=== PATIENT | male | born 1945 | race African-American/Black ===

== ENCOUNTER 2016-11-02 12:15 | Observation (INO) ==
--- NOTE | 2016-11-02 12:32 | Emergency Department Note ---
Disposition Clinical Impression: Chest pain Disposition: Admitted As Inpatient Condition: Fair General Adult HPI - General Chief complaint: ED Chest Pain Stated complaint: Chest Pain Time Seen by Provider: 11/02/16 12:29 Source: patient Limitations: no limitations - History of Present Illness Pain Scale: 8 - Related Data Home Medications Medication Instructions Recorded Confirmed Cyanocobalamin (Vitamin B-12) 1,000 mcg PO DAILY 11/02/16 11/02/16 [Vitamin B-12] Insulin Glargine,Hum.rec.anlog 30 unit SQ BID 11/02/16 11/02/16 [Lantus Solostar] Isosorbide MONOnitrate (24 HR) 30 mg PO DAILY 11/02/16 11/02/16 [Imdur] Metoprolol Tartrate [Lopressor] 50 mg PO BID 11/02/16 11/02/16 Nitroglycerin [Nitrostat] 0.4 mg SL AD PRN 11/02/16 11/02/16 Paroxetine HCl [Paxil] 5 mg PO DAILY 11/02/16 11/02/16 Prasugrel [Effient] 10 mg PO DAILY 11/02/16 11/02/16 Ranolazine [Ranexa] 500 mg PO BID 11/02/16 11/02/16 Simvastatin [Zocor] 40 mg PO HS 11/02/16 11/02/16 Allergies Allergy/AdvReac Type Severity Reaction Status Date / Time glimepiride AdvReac Diarrhea Verified 11/02/16 16:19 metformin AdvReac Diarrhea Verified 11/02/16 16:19 Past Medical History - Past Medical History Medical history: Reports: diabetes, hyperlipidemia, hypertension, myocardial infarction - Social History Smoking Status: Current every day smoker Alcohol use: Reports: none Drug use: Reports: none Physical Exam - General Limitations: no limitations General appearance: alert, in no apparent distress Course Vital Signs Temperature 98.0 F 11/02/16 12:23 Pulse Rate 49 11/02/16 12:23 Respiratory Rate 16 11/02/16 12:23 Blood Pressure 160/84 11/02/16 12:23 O2 Sat by Pulse Oximetry 98 11/02/16 12:23 Temperature 97.6 F 11/02/16 15:24 Pulse Rate 46 11/02/16 15:24 Respiratory Rate 16 11/02/16 15:24 Blood Pressure 148/85 11/02/16 15:24 O2 Sat by Pulse Oximetry 98 11/02/16 15:24 Oxygen Delivery Oxygen Delivery Room Air Medical Decision Making - Lab Data Result diagrams: 11/02/16 13:35 11/02/16 13:35 Lab Results 11/02/16 11/02/16 11/02/16 Range/Units 13:35 13:35 13:35 WBC 7.5 (4.3-11.1) K/mcL RBC 5.55 H (4.19-5.50) M/mcL Hgb 15.9 (12.9-16.9) g/dL Hct 45.0 (37.5-50.1) % MCV 81.1 L (83.0-100.0) fL MCH 28.6 (28.0-33.3) pg MCHC 35.3 (31.6-35.5) g/dL RDW 13.8 (11.5-14.5) % Plt Count 279 (140-400) K/mcL MPV 10.5 (9.4-12.4) fL Immature Gran % 0.5 (0-4) % Seg Neutrophils % 40.2 % Lymphocytes % 36.1 % Monocytes % 8.2 % Eosinophils % 14.2 % Basophils % 0.8 % Neutrophils # 3.0 (1.6-8.9) K/mcL Lymphocytes # 2.7 (0.6-4.6) K/mcL Monocytes # 0.6 (0.0-1.3) K/mcL Eosinophils # 1.1 H (0.0-0.6) K/mcL Basophils # 0.1 (0.0-0.2) K/mcL Sodium 140 (136-145) mEq/L Potassium 4.0 (3.5-4.5) mEq/L Chloride 107 (98-109) mEq/L Carbon Dioxide 24 (19-29) mEq/L BUN 10 (8-26) mg/dL Creatinine 1.18 (0.72-1.25) mg/dL Est GFR ( Amer) > 60 (> 60) Est GFR (Non-Af Amer) > 60 (> 60) BUN/Creatinine Ratio 8 (6-26) Glucose 135 H (70-99) mg/dL Calculated Osmolality 291 (280-300) Calcium 8.6 (8.6-10.8) mg/dL Troponin I 0.03 (0-0.03) ng/mL Attestation Statement - Attestation Attestation: I examined this patient and my medical decision-making was reviewed with the MENTAL HEALTH CONSULTANT/PA/Advanced Practice Nurse/Resident Physician. I agree with the documented findings, disposition and treatment plan as described except to the extent set forth below. Ujdm-[id number] time provided Patient presents complaining of chest discomfort and fatigue. He has a known history of coronary artery disease. Patient seen and evaluated in conjunction with the resident physician. EKG reviewed by me showing ST segment depression in the inferior lateral leads which is unchanged compared to previous study
--- NOTE | 2016-11-02 12:36 | Emergency Department Note ---
Disposition Clinical Impression: Chest pain Qualifiers: Chest pain type: unspecified Qualified Code(s): R07.9 - Chest pain, unspecified Disposition: Admitted As Inpatient Condition: Fair Forms: ED Satisfaction Letter Chest Pain HPI - General Chief Complaint: ED Chest Pain Stated Complaint: Chest Pain Time Seen by Provider: 11/02/16 12:29 Source: patient Limitations: no limitations Vital Signs Reviewed: Yes Nursing Notes Reviewed: Yes - History of Present Illness HPI Narrative: Mr. Cowan, a 70yo male, presents from home by POV with chief complaint chest pain. Onset yesterday and intermittent for approximately 3 hours before it spontaneously resolved. Recurred again this morning at 07:30 and has been intermittent all day. Patient locates his chest pain as left lower sternal border. Though does not currently radiate, it did radiate to his left shoulder yesterday. Pain is described as sharp and stabbing. It is present at rest and unchanged with light exertion. Patient admits to generalized weakness and fatigue. Denies acute dyspnea, diaphoresis, nausea, numbness or tingling, vomiting, abdominal pain, fever, chills, cough. Patient has not had a stress test since his last catheterization in 2014. PMH: Hypertension, hyperlipidemia, CAD with stent 7. Habits: Current every day smoker. [employer]: Dr. Espinoza Severity scale (1-10): 8 - Related Data Allergies Allergy/AdvReac Type Severity Reaction Status Date / Time No Known Allergies Allergy Verified 11/02/16 12:26 All systems ED: reviewed and negative except as stated. Constitutional: Denies: fever, chills, weakness Cardiovascular: Reports: chest pain. Denies: palpitations, dyspnea on exertion , edema, syncope Respiratory: Reports: dyspnea. Denies: cough, wheezes Gastrointestinal: Denies: abdominal pain, nausea, vomiting, diarrhea, constipation Genitourinary: Denies: urgency, dysuria, frequency Musculoskeletal: Denies: back pain, neck pain, joint swelling Integumentary: Denies: rash, abrasion, lesions Neurological: Denies: headache, weakness, numbness Chest Pain PMH - Past Medical History Medical history: Reports: diabetes, hyperlipidemia, hypertension, myocardial infarction - Social History Smoking Status: Current every day smoker Alcohol use: Reports: none Drug use: Reports: none Physical Exam General: Patient is alert, oriented, and in no acute distress. HEENT: No facial asymmetry. Head is normocephalic and atraumatic. Trachea midline. Cardiovascular: Heart regular rate and rhythm without clicks, rubs, gallops, or murmurs. No JVD. PMI nondisplaced. No pedal edema. Bilateral radial and dorsalis pedis pulses 2+. No carotid bruit. Respiratory: Symmetric chest rise with good respiratory effort. Bilateral breath sounds are clear without wheezing, crackles, or rhonchi. Abdomen: Bowel sounds present normoactive x-4 quadrants. Abdomen is soft, nondistended, and nontender. No organomegaly noted. Psych: Patient's affect is appropriate for situation. - General Limitations: no limitations General appearance: alert, in no apparent distress Course Course Narrative: HTN, HLD, previous WI with 7 stents, , tobacco smoker. His story is moderately suspicious that he states it feels the same as all the previous times he has required stenting. The patient's main concern right now is seen [employer]. After discussion in elucidating my concerns, he agrees for admission to observation for continued ACS rule out. Patient's EKG is unchanged from previous. Troponin is within normal range. Blood lites are unremarkable. Patient is not anemic. Leukocytosis. No leukocytosis. Chest x-ray is unremarkable. Even so, patient's heart score is 6. Have discussed admission with the patient and his at bedside. Pressure decision-making regarding his risks and concerning medical history, they agree for observation for ACS rule out. Spoke with the hospitalist, Dr. Olguin, who agrees to accept the patient. Vital Signs Temperature 98.0 F 11/02/16 12:23 Pulse Rate 49 11/02/16 12:23 Respiratory Rate 16 11/02/16 12:23 Blood Pressure 160/84 11/02/16 12:23 O2 Sat by Pulse Oximetry 98 11/02/16 12:23 Temperature 98.0 F 11/02/16 12:23 Pulse Rate 45 11/02/16 14:15 Respiratory Rate 14 11/02/16 14:15 Blood Pressure 163/101 11/02/16 14:15 O2 Sat by Pulse Oximetry 97 11/02/16 14:15 Oxygen Delivery Oxygen Delivery Room Air Chest Pain - Lab Data Result diagrams: 11/02/16 13:35 11/02/16 13:35 Lab Results 11/02/16 11/02/16 11/02/16 Range/Units 13:35 13:35 13:35 WBC 7.5 (4.3-11.1) K/mcL RBC 5.55 H (4.19-5.50) M/mcL Hgb 15.9 (12.9-16.9) g/dL Hct 45.0 (37.5-50.1) % MCV 81.1 L (83.0-100.0) fL MCH 28.6 (28.0-33.3) pg MCHC 35.3 (31.6-35.5) g/dL RDW 13.8 (11.5-14.5) % Plt Count 279 (140-400) K/mcL MPV 10.5 (9.4-12.4) fL Immature Gran % 0.5 (0-4) % Seg Neutrophils % 40.2 % Lymphocytes % 36.1 % Monocytes % 8.2 % Eosinophils % 14.2 % Basophils % 0.8 % Neutrophils # 3.0 (1.6-8.9) K/mcL Lymphocytes # 2.7 (0.6-4.6) K/mcL Monocytes # 0.6 (0.0-1.3) K/mcL Eosinophils # 1.1 H (0.0-0.6) K/mcL Basophils # 0.1 (0.0-0.2) K/mcL Sodium 140 (136-145) mEq/L Potassium 4.0 (3.5-4.5) mEq/L Chloride 107 (98-109) mEq/L Carbon Dioxide 24 (19-29) mEq/L BUN 10 (8-26) mg/dL Creatinine 1.18 (0.72-1.25) mg/dL Est GFR ( Amer) > 60 (> 60) Est GFR (Non-Af Amer) > 60 (> 60) BUN/Creatinine Ratio 8 (6-26) Glucose 135 H (70-99) mg/dL Calculated Osmolality 291 (280-300) Calcium 8.6 (8.6-10.8) mg/dL Troponin I 0.03 (0-0.03) ng/mL Heart Score - Score History: Moderately Suspicious EKG: Non Specific repolarisation Disturbance Age: Greater than 65 Risk Factors: Equal/Greater than 3 risk factor or history of atherosclerotic disease Troponin: Less than normal limit HEART Score Total: 6
[2016-11-02 13:54] LABS: Basophils # 0.1 K/mcL (0.0-0.2); Basophils % 0.8 %; Eosinophils # 1.1 K/mcL (0.0-0.6); Eosinophils % 14.2 %; Hemoglobin 15.9 g/dL (12.9-16.9); Immature Granulocytes % 0.5 % (0-4); Lymphocytes # 2.7 K/mcL (0.6-4.6); Lymphocytes % 36.1 %; Mean Corpuscular HGB Conc 35.3 g/dL (31.6-35.5); Mean Corpuscular Hemoglobin 28.6 pg (28.0-33.3); Mean Corpuscular Volume 81.1 fL (83.0-100.0); Mean Platelet Volume 10.5 fL (9.4-12.4); Monocytes # 0.6 K/mcL (0.0-1.3); Monocytes % 8.2 %; Platelet Count 279 K/mcL (140-400); Red Blood Count 5.55 M/mcL (4.19-5.50); Red Cell Distribution Width 13.8 % (11.5-14.5); Segmented Neutrophils % 40.2 %
[2016-11-02 14:06] LABS: BUN/Creatinine Ratio 8 (6-26); Blood Urea Nitrogen 10 mg/dL (8-26); Calcium 8.6 mg/dL (8.6-10.8); Carbon Dioxide 24 mEq/L (19-29); Chloride 107 mEq/L (98-109); Glucose 135 mg/dL (70-99); Osmolality,Calculated 291 (280-300); Sodium 140 mEq/L (136-145); eGFR For African Americans > 60 (> 60); eGFR For Non-African Americans > 60 (> 60)
[2016-11-02] MEDS ORDERED: Aspirin 325 MG TABLET PO ONE (14:27)
[2016-11-02] MEDS ORDERED: Naloxone 0.4 MG/ML INJ IVP PRN ×2 (15:02→15:03)
[2016-11-02] MEDS ORDERED: *HR* Morphine 2 MG/ML SYRINGE IVP PRN (15:03)
--- NOTE | 2016-11-02 15:13 | Internal Med History&Physical ---
Date of Encounter: 11/02/16 Time of Encounter: 15:09 Assessment and Plan (1) Chest pain Status: Acute Chest pain: Admitted as observation. - diabetic diet. -ASA/BB/Statin - Echocardiogram -Pain control with morphine -We will resume home medication -If echocardiogram is normal then please consider stress test -If echocardiogram is abnormal and his consider cardiology evaluation Qualifiers: Chest pain type: unspecified Qualified Code(s): R07.9 - Chest pain, unspecified (2) Diabetes mellitus Status: Chronic Will resume home medications. Will continue home insulin dose. ACHS Sliding scale. Qualifiers: Diabetes mellitus type: type 2 Diabetes mellitus complication status: with unspecified complications Diabetes mellitus manager long term care insulin use: without manager long term care use Qualified Code(s): E11.8 - Type 2 diabetes mellitus with unspecified complications (3) Hypertension Status: Chronic We will resume home medication. At this point patient's blood pressure is within stable condition. Qualifiers: Hypertension type: essential hypertension Qualified Code(s): I10 - Essential (primary) hypertension (4) Current every day smoker Status: Chronic Discussed at length with the patient regarding smoking cessation. Patient is not willing to quit. (5) DVT prophylaxis Status: Acute Heparin Medical decision making: This patient has a gzhm-ja-ekzioasw risk of worsening cardiac issues in spite of being on appropriate medication Internal Medicine - H&P: HPI Chief complaint: Chest pain Admitted From: Emergency Dept Plans for Post Hospital Care: Home History of present illness: PCP: Dr Carter Cardiology : Dr Olga Deluna PMH : diabetes, hyperlipidemia, hypertension, myocardial infarction,CAD, S /P Stetsx7 HPI: Patient has ongoing chest discomfort for more than 3 days. Since this morning 7:30 patient has worsening chest pain. The chest pain is precordial in nature, nonradiating, localized, worsening with the inspiration and relieved by rest. Patient complains that the nature of the pain is intermittent, sharp and stabbing. Patient claims that in last 3-4 days he is progressively getting fatigue. Patient denies nausea, vomiting, abdominal pain, diarrhea, dizziness and palpitations. His persistent chest pain brought him to the emergency room for further evaluation. Workup in the emergency room: Patient was evaluated in the emergency room. Basic labs were drawn. EKG was done which was unchanged. X-ray chest was done which was within normal limit. Reason for admission: Chest pain to rule out ACS Family history: Noncontributory Past Med Surg Social Fam HX - Past Medical History Medical history: diabetes, hyperlipidemia, hypertension, myocardial infarction - Social History Smoking Status: Current every day smoker Alcohol use: none Drug use: none Internal Medicine - H&P: Meds Cyanocobalamin (Vitamin B-12) [Vitamin B-12] 1,000 mcg PO DAILY 11/02/16 [ History] Insulin Glargine,Hum.rec.anlog [Lantus Solostar] 30 unit SQ BID 11/02/16 [ History] Nitroglycerin [Nitrostat] 0.4 mg SL AD PRN 11/02/16 [History] Paroxetine HCl [Paxil] 5 mg PO DAILY 11/02/16 [History] Prasugrel [Effient] 10 mg PO DAILY 11/02/16 [History] Simvastatin [Zocor] 40 mg PO HS 11/02/16 [History] Aspirin 81 mg PO DAILY #30 tab.chew 11/04/16 [Rx] Isosorbide MONOnitrate (24 HR) [Imdur] 60 mg PO DAILY #30 tab.er.24h 11/04/16 [ Rx] Lisinopril [Zestril] 10 mg PO DAILY #30 tablet 11/04/16 [Rx] Metoprolol [Lopressor] 25 mg PO BID #60 tablet 11/04/16 [Rx] Ranolazine [Ranexa] 1,000 mg PO BID #60 tab.er.12h 11/04/16 [Rx] Allergies glimepiride Adverse Reaction (Verified 11/02/16 16:19) Diarrhea metformin Adverse Reaction (Verified 11/02/16 16:19) Diarrhea All Systems PM: A 10-system review of systems was performed and is negative for pertinent findings except as documented above in the HPI. - Constitutional Constitutional: no chills, no fever(s), no night sweats - EENT Eyes: no change in vision, no discharge, no pain, no photophobia Ears: no ear discharge, no ear pain, no tinnitus Nose, mouth and throat: no dysphagia, no nasal discharge, no neck pain, no sore throat - Cardiovascular Cardiovascular ROS IM: chest pain, no diaphoresis, no dyspnea, no lightheadedness, no palpitations, no syncope - Respiratory Respiratory: no cough, no dyspnea, no wheezing, no excessive phlegm production - Gastrointestinal Gastrointestinal: no abdominal pain, no diarrhea, no hematemesis, no hematochezia, no melena, no nausea, no vomiting - Musculoskeletal Musculoskeletal ROS IM: no numbness, no tingling - Integumentary Integumentary IM: no rash, no unusual bruising - Neurological Neurological ROS: no confusion, no convulsions, no focal weakness, no numbness, no tingling, no tremor(s) - Hematologic/Lymphatic Hematologic/Lymphatic: no easy bruising - Constitutional Vitals: Temp Pulse Resp BP Pulse Ox 98.0 F 45 14 172/109 97 11/02/16 12:23 11/02/16 14:15 11/02/16 15:03 11/02/16 15:03 11/02/16 14:15 General appearance: Present: A&O X 3, morbidly obese, pleasant, no acute distress, answers questions appropriately - Head Head exam: Present: atraumatic, normocephalic - Eye Eye exam: Present: PERRL, conjuntiva pink, sclera anicteric Pupils: Present: PERRL - Neck Neck exam general surgery: Present: supple, trachea midline. Absent: lymphadenopathy - Respiratory Respiratory exam: Present: CTAB. Absent: accessory muscle use, rales, rhonchi, wheezes - Cardiovascular Cardiovascular exam: Present: RRR, +S1, +S2. Absent: diastolic murmur, gallop, rubs, systolic murmur - GI/Abdominal GI/Abdominal exam: Present: normal bowel sounds, soft, no peritoneal signs. Absent: distended, tenderness - Extremities Exam Extremities exam: Present: warm, radial pulses palpable and symetrical. Absent : calf tenderness, cyanotic, pedal edema - Neurological Exam Neurological exam: Present: CN II-XII intact, oriented X3, no focal deficits. Absent: pronater drift, facial droop, speech deficit - Skin Skin exam: Present: dry, intact Internal Med - H&P Results - Labs CBC & Chem 7: 11/04/16 05:17 11/04/16 05:17 Labs: Discussed with the emergency room physician
[2016-11-02] MEDS ORDERED: Nitroglycerin 0.4 MG TAB.SUBL SL PRN (21:31)
[2016-11-02] MEDS ORDERED: Dextrose Gel 15 GM PO PRN ×2 (21:33)
[2016-11-02] MEDS ORDERED: *HR* Dextrose 50 % in Water (Syg) 50 ML SYRINGE IVP PRN (21:33)
[2016-11-02] MEDS ORDERED: D5% in Water 1,000 ML IV PRN (21:33)
[2016-11-02] MEDS: Ranolazine 500 MG TAB.ER.12H PO SCH (22:04)
[2016-11-02 22:26] LABS: Hemoglobin A1C 7.2 %
[2016-11-02] MEDS: Insulin DETEMIR 100 UNIT/ML X5UNITS SQ SCH (22:42)
[2016-11-03 04:03] LABS: Alanine Aminotransferase 11 Units/L (0-55); Albumin/Globulin Ratio 0.9 (1.1-2.2); Alkaline Phosphatase 73 Units/L (38-126); Aspartate Amino Transferase 13 Units/L (5-34); BUN/Creatinine Ratio 8 (6-26); Bilirubin,Total 0.6 mg/dL (0.2-1.2); Blood Urea Nitrogen 10 mg/dL (8-26); Calcium 8.9 mg/dL (8.6-10.8); Carbon Dioxide 21 mEq/L (19-29); Chloride 108 mEq/L (98-109); Chol/HDL Ratio 4.4 (0-4.9); Cholesterol 142 mg/dL (< 200); Globulin 3.2 g/dL (2.4-3.5); Glucose 177 mg/dL (70-99); HDL Cholesterol 32 mg/dL (40-59); LDL Cholesterol,Calculated 67 mg/dL (0-99); Magnesium 1.8 mg/dL (1.6-2.6); Osmolality,Calculated 287 (280-300); Phosphorous 3.7 mg/dL (2.3-4.7); Potassium 3.8 mEq/L (3.5-4.5); Sodium 137 mEq/L (136-145); Total Protein 6.2 g/dL (6.0-8.3); Triglycerides 214 mg/dL (< 150); eGFR For African Americans > 60 (> 60); eGFR For Non-African Americans 58 (> 60)
[2016-11-03 04:36] LABS: Basophils # 0.1 K/mcL (0.0-0.2); Basophils % 0.8 %; Eosinophils # 1.1 K/mcL (0.0-0.6); Hematocrit 44.3 % (37.5-50.1); Hemoglobin 15.7 g/dL (12.9-16.9); Immature Granulocytes % 0.4 % (0-4); Lymphocytes # 3.2 K/mcL (0.6-4.6); Lymphocytes % 42.2 %; Mean Corpuscular HGB Conc 35.4 g/dL (31.6-35.5); Mean Corpuscular Hemoglobin 28.7 pg (28.0-33.3); Mean Platelet Volume 10.7 fL (9.4-12.4); Monocytes # 0.7 K/mcL (0.0-1.3); Monocytes % 9.4 %; Neutrophils # 2.5 K/mcL (1.6-8.9); Platelet Count 259 K/mcL (140-400); Red Blood Count 5.47 M/mcL (4.19-5.50); Red Cell Distribution Width 13.7 % (11.5-14.5); Segmented Neutrophils % 33.2 %
[2016-11-03] MEDS: Insulin LISPRO 300 UNITS/3 ML VIAL SQ SCH ×3 (08:13→17:04)
[2016-11-03] MEDS ORDERED: PAROXETINE HCL 5 MG PO SCH (09:00)
[2016-11-03] MEDS ORDERED: Cyanocobalamin (B-12) 1,000 MCG TABLET PO SCH (09:00)
[2016-11-03] MEDS ORDERED: Isosorbide MONOnitrate (24 HR) 30 MG TAB.ER.24H PO SCH ×2 (09:00→16:52)
[2016-11-03] MEDS ORDERED: Regadenoson 0.4 MG/5 ML SYRINGE IVP ONE (09:13)
--- NOTE | 2016-11-03 10:38 | ECHO - Doppler Report ---
Echocardiogram Name: Eliu Cowan Date of Study: 11/03/2016 Date: 1945 Ht: 73.0 in Medical Record#: [id number] Age: 70 Wt: 218.0 lb Gender: Male BSA: 2.23 Order #: [id number] Location: [facility] Room #: 3B Reading Physician: Jenniffer Espinoza DO Cable Machine Operator: Jackeline Templeton Ordering Physician: Tunde Olguin MD Primary Physician: Danny Parks DO Indications: Chest pain Impressions: Sinus bradycardia, HR 50's. LVEF 45-50%. Mild global to low normal LV systolic dysfunction. There is evidence of moderate diastolic dysfunction of the left ventricle. Moderate concentric hypertrophy of the left ventricle. RV is not well visualized. Mild mitral regurgitation. No pulmonary hypertension. Left Ventricular Wall Motion: Rest Echo Findings All wall segments showed normal motion. Findings: Study Quality * Technically adequate exam. ECG Findings * Sinus bradycardia. Left Ventricle * Basal sigmoid septum. * Moderate concentric left ventricular hypertrophy. * Moderate left ventricular diastolic dysfunction. * LVEF 45-50%. Left Atrium * Mildly dilated left atrium. Mitral Valve * Normal mitral valve structure. * No mitral stenosis. * Mild mitral regurgitation. Aortic Valve * No aortic regurgitation. * Trileaflet aortic valve. * Mildly calcified aortic valve leaflets. * No aortic stenosis. Tricuspid Valve * Tricuspid valve not well visualized. * Trace tricuspid regurgitation. * Estimated RA pressure is 3 mmHg. * Estimated RVSP is 7 mmHg. * No pulmonary hypertension. Pulmonic Valve * Pulmonic valve is not well visualized. * No pulmonic stenosis. * Trace pulmonic regurgitation. Pulmonary Artery * Pulmonary artery not well visualized. Right Atrium * Normal right atrial size. Right Ventricle * RV is not well visualized. Interatrial Septum * No evidence of PFO by color Doppler. IVC * The IVC is dilated. Pericardium * There is no pericardial effusion present. Aorta * Not well visualized. History Hypertension Diabetes Hypercholesteremia Family History of CAD History of CAD/PTCA Myocardial Infarction 09/20/15 a Previous Echo was performed. Measurements: BP: 169/ 85 2D Normal Values IVSd: 2.20 cm 0.6 - 1.0 cm LVIDd: 4.80 cm 3.7 - 5.6 cm LVPWd: 1.60 cm 0.6 - 1.1 cm LVIDs: 3.80 cm 1.5 - 3.6 cm AO: 3.20 cm < 4.0 cm LA: 4.10 cm 2.0 - 4.0cm %FS: 20.80 cm >25 % LA volume: 69 Mitral Valve Peak E:.74 m/sec Peak A:.58 m/sec E/A Ratio:1.3 Peak E' Lat Shukri:5.85 cm/s Peak E' Med Shukri:3.02 cm/s E/E' Lat Ratio:12.6 E/E' Med Ratio:24.3 Tricuspid Valve TV Regurg Peak Grad: 4.00mmHg TV Regurg Peak Shukri: .95m/sec Updated by Jenniffer Espinoza on 11/03/2016 10:30:49 AM electronically signed on 11/03/2016 10:32:19 AM with status of Final Wall Motion Flores: 1=Normal, 2=Hypokinesis, 3=Akinesis, 4=Dyskinesis, 5=Aneurysmal, 6=Hyperkinetic, X=Not Visualized (Blank)=Missing
[2016-11-03] MEDS: Ranolazine 500 MG TAB.ER.12H PO SCH ×2 (13:01→20:07)
[2016-11-03] MEDS: Insulin DETEMIR 100 UNIT/ML X5UNITS SQ SCH ×2 (13:01→20:10)
--- NOTE | 2016-11-03 16:18 | Nuclear Medicine Stress Report ---
Regadenoson Nuclear Stress Name: Eliu Cowan Date of Study: 11/03/2016 Date: 1945 Ht: 73.0 in Medical Record#: [id number] Age: 70 Wt: 237.0 lb Gender: Male Order #: [id number] Location: [facility] Room: [facility] Supervising Provider: Facundo Scott CNP Reading Physician: Jenniffer Espinoza DO Ordering Physician: Deidra Rivera CNP Primary Care Physician: Danny Parks DO Stress Technologist: Rony Nagel, OVERNIGHT STOCKER, CCT Cattle Dealer: Susannah Avelar Indications: Chest Pain Impression: Perfusion imaging was negative for ischemia. Basal and mid inferior and inferolateral wall infarct. Pharmacologic ECG was non diagnostic for ischemia. Patient described chest pain, headache and stomach cramps with pharmacologic stress. Gated EF = 46%. The LV is mildly dilated. Recommend clinical correlation. History: Hypertension Diabetes Hypercholesteremia History of Smoking Prior PCI Stress Test Summary: Stress Test Type: Pharmacologic Regadenoson 0.4mg/5ml given IV Baseline Information: Initial Heart Rate: 51 Blood Pressure: 180/90 Stress Information: Stress Time: 4 min 00 sec Test Terminated Due to (primary): Completed Protocol Maximum Blood Pressure: 160/84 Maximum Heart Rate: 72 Percent Maximum Heart Rate Achieved: 48 Double Product: 11,520 METS Reached: 1 Symptoms: Chest pain, Stomach cramps, Headache Nuclear Summary: SPECT myocardial perfusion imaging using Tc99m Sestamibi given intravenously was performed at rest and following cardiac stress testing. The resting images were obtained following initial dose of 8 mCi. Following stress an additional dose of 30.5 mCi was given at peak exercise or 30 seconds post regadenoson infusion. Medication Given: Time Medication Dose Units Route Findings: Stress Note * Resting ECG demonstrated normal sinus rhythm with ST-T abnormalities. * Pharmacologic stress ECG is non diagnostic for ischemia due to baseline non-specific ST and T changes. * Patient had chest pain, headache and stomach cramps during stress. * No arrhythmias were noted during stress. Hemodynamic responses * Normal hemodynamic responses to pharmacologic stress. Study Quality * Study quality is good. Left Ventricle * The left ventricle is mildly dilated. TID * No evidence of transient ischemic dilatation. Lung Uptake * There is no evidence of increase lung uptake. Gated EF % * Gated EF = 46%. PERFUSION * There is a small sized, moderate intensity fixed perfusion defect involving the basal and mid inferior and inferolateral mullins associated with abnormal wall motion. * Other areas demonstrate normal rest and stress perfusion. Updated by Jenniffer Espinoza on 11/03/2016 4:10:21 PM electronically signed on 11/03/2016 4:12:16 PM with status of Final
--- NOTE | 2016-11-03 16:46 | Internal Med Progress Note ---
Date of Encounter: 11/03/16 Time of Encounter: 12:30 (and 1600) - Assessment and plan (1) Chest pain Current Visit: Yes Status: Acute Assessment and plan: Patient was continuing bouts of self-limiting chest pain. Patient stating this pain feels exactly like it did last time he had to have stents. Echocardiogram with ejection fraction of 45-50%, moderate LVH with moderate diastolic dysfunction. Compared to prior echocardiogram from August 2015 which revealed ejection fraction of 55%, mild diastolic dysfunction. Stress test revealing old [place] but no acute areas of reversible ischemia. Cardiology brought on board for possible left heart catheter given his history and his current symptoms. Will increase Imdur dosage, nothing by mouth at midnight, he will see cardiology in the morning to decide whether or not to proceed with a left heart catheter. He is currently chest pain-free. ITS Impressions Chest X-Ray 11/02/16 12:32 IMPRESSION: No acute abnormality. D/ / Larry Evans MD / Larry Evans MD Interpreting Provider: Laryr Evans MD Echocardiogram impressions: Sinus bradycardia, heart rate in the 50s. LVEF 45- 50%. Mild global to low normal LV systolic dysfunction. There is evidence of moderate diastolic dysfunction of the left ventricle. Moderate concentric hypertrophy of the left ventricle. RV is elevated visualized. Mild mitral regurgitation. No pulmonary hypertension. Nuclear stress test impression: Perfusion imaging was negative for ischemia. Basal and mid inferior and inferolateral wall infarct. Pharmacologic ECG is nondiagnostic for ischemia. Patient described chest pain, headache and stomach cramps with pharmacologic stress. Gated ejection fraction equals 46%. LV is mildly dilated. Recommend clinical correlation. Qualifiers: Chest pain type: unspecified Qualified Code(s): R07.9 - Chest pain, unspecified (2) Current every day smoker Current Visit: Yes Status: Chronic Assessment and plan: Declines counseling. (3) DVT prophylaxis Current Visit: Yes Status: Acute Assessment and plan: IPC's ordered (4) Diabetes mellitus Current Visit: Yes Status: Chronic Assessment and plan: Relatively well-controlled at home with an A1c of 7.2%. Continue sliding scale while admitted. (5) Hypertension Current Visit: Yes Status: Chronic Assessment and plan: Borderline hypertensive at times. At home, patient is on metoprolol 50 mg twice a day, Imdur 30 mg daily, Ranexa 500 mg twice a day. Will increase Imdur dosage due to ongoing chest pain Qualifiers: Hypertension type: essential hypertension Qualified Code(s): I10 - Essential (primary) hypertension - Subjective Interval history: Patient seen and examined. On examination, patient sitting upright in bed. Patient alert and oriented 3 and states he does not currently have chest pain however he states he continues to have bouts of chest pain that feels very similar to his prior bouts where he had to have stents placed. He states these bouts of chest pain are self resolving. - Constitutional Vitals: Temp Pulse Resp BP Pulse Ox 97.9 F 45 17 147/75 97 11/03/16 16:01 11/03/16 16:01 11/03/16 16:01 11/03/16 16:01 11/03/16 16:01 General appearance: Present: A&O X 3, pleasant, no acute distress, answers questions appropriately - Head Head exam: Present: atraumatic, normocephalic - Eye Eye exam: Present: PERRL, conjuntiva pink, sclera anicteric Pupils: Present: PERRL - Neck Neck exam general surgery: Present: supple, trachea midline. Absent: lymphadenopathy - Respiratory Respiratory exam: Present: CTAB. Absent: accessory muscle use, rales, respiratory distress, rhonchi, wheezes - Cardiovascular Cardiovascular exam: Present: RRR, +S1, +S2. Absent: diastolic murmur, gallop, rubs, systolic murmur - GI/Abdominal GI/Abdominal exam: Present: normal bowel sounds, soft, no peritoneal signs. Absent: distended, tenderness - Extremities Exam Extremities exam: Present: warm, radial pulses palpable and symetrical. Absent : calf tenderness, cyanotic, pedal edema - Neurological Exam Neurological exam: Present: alert, CN II-XII intact, normal gait, oriented X3, no focal deficits, strengths equal and symetr throughout. Absent: pronater drift, facial droop, speech deficit - Skin Skin exam: Present: dry, intact, normal color, warm Internal Medicine: Result - Labs CBC & Chem 7: 11/03/16 03:42 11/03/16 03:42 Labs: Short CBC 11/03/16 Range/Units 03:42 WBC 7.7 (4.3-11.1) K/mcL Hgb 15.7 (12.9-16.9) g/dL Hct 44.3 (37.5-50.1) % Plt Count 259 (140-400) K/mcL Neutrophils # 2.5 (1.6-8.9) K/mcL BMP 11/03/16 03:42 Sodium 137 Potassium 3.8 Chloride 108 Carbon Dioxide 21 BUN 10 Creatinine 1.24 Glucose 177 H Calcium 8.9 Cardiac Enzymes 11/02/16 11/03/16 Range/Units 21:20 03:42 Troponin I 0.02 0.02 (0-0.03) ng/mL Liver Function 11/03/16 Range/Units 03:42 Total Bilirubin 0.6 (0.2-1.2) mg/dL AST 13 (5-34) Units/L ALT 11 (0-55) Units/L Alkaline Phosphatase 73 (38-126) Units/L Albumin 3.0 L (3.5-5.0) g/dL Consult Discharge Plan - Plan Referrals: Danny Parks DO [Primary Care Provider] -
--- NOTE | 2016-11-03 16:55 | Electrocardiograph Report ---
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
[2016-11-03] MEDS ORDERED: Insulin LISPRO 300 UNITS/3 ML VIAL SQ SCH (21:00)
[2016-11-04 06:52] LABS: Basophils # 0.1 K/mcL (0.0-0.2); Basophils % 0.8 %; Eosinophils % 13.6 %; Hematocrit 44.2 % (37.5-50.1); Hemoglobin 15.8 g/dL (12.9-16.9); Immature Granulocytes % 0.3 % (0-4); Lymphocytes # 2.6 K/mcL (0.6-4.6); Lymphocytes % 35.8 %; Mean Corpuscular HGB Conc 35.7 g/dL (31.6-35.5); Mean Corpuscular Volume 81.3 fL (83.0-100.0); Mean Platelet Volume 11.5 fL (9.4-12.4); Monocytes # 0.7 K/mcL (0.0-1.3); Monocytes % 9.5 %; Neutrophils # 2.9 K/mcL (1.6-8.9); Platelet Count 272 K/mcL (140-400); Red Blood Count 5.44 M/mcL (4.19-5.50); Red Cell Distribution Width 13.9 % (11.5-14.5)
[2016-11-04 06:56] LABS: INR 1.1
[2016-11-04 07:09] LABS: BUN/Creatinine Ratio 11 (6-26); Blood Urea Nitrogen 14 mg/dL (8-26); Calcium 8.4 mg/dL (8.6-10.8); Carbon Dioxide 22 mEq/L (19-29); Chloride 107 mEq/L (98-109); Glucose 144 mg/dL (70-99); Osmolality,Calculated 293 (280-300); Potassium 3.5 mEq/L (3.5-4.5); Sodium 140 mEq/L (136-145); eGFR For African Americans > 60 (> 60); eGFR For Non-African Americans 57 (> 60)
[2016-11-04 07:40] VITALS: BP 155/92
[2016-11-04] MEDS: Insulin LISPRO 300 UNITS/3 ML VIAL SQ SCH (09:55)
[2016-11-04] MEDS ORDERED: Aspirin 81 MG TAB.CHEW PO SCH (10:00)
--- NOTE | 2016-11-04 10:07 | Cardiology Consult Note ---
Date of Encounter: 11/04/16 Time of Encounter: 09:00 Assessment and Plan (1) Chest pain Current Visit: Yes Status: Acute Per cardiology: -Patient with episode of atypical chest pain. Pain occured at rest. No aggervating or alleviating factors. States pain is not the same as his previous angina. -Imdur increased to 60mg daily yesterday per primary service (previously on 30mg daily) -Denies chest pain since increased imdur. CUrrently chest pain free. -Echocardiogram 11/03/16 with LVEF 45-50%, mild global to low normal LV systollic function, evidence of moderate diastolic dysfunction of left ventricle, moderate concentric hypertrophy of left ventricle, mild mitral regurgitation, no pulmonary hypertension, all wall segments with normal motion. -Stress test 11/03/16 with perfusion imaging negative for ischemia, basal and mid inferior and inferolateral wall infarct. gated EF 46%, LV mildly dilated. Infarct also noted on stress 04/25/2014. -Troponins negative x4. -May be due to uncontrolled BP. -Patient agreeable for no further ischemic work up at this time and will follow up with cardiology. -Will increase ranexa to 1000mg BID. (STAN) Qualifiers: Chest pain type: unspecified Qualified Code(s): R07.9 - Chest pain, unspecified (2) CAD (coronary artery disease) Current Visit: Yes Status: Chronic Per cardiology: -Patient with known history of CAD. -Last cath 12/14/14 with LVEF 45%, LMCA angiographically free of disease, 20% stenosis mid LAD, very distal LAD small 70% stenosis. Previous stent diagonal 1 with 100% in-stent stenosis that was not intervened on (small vessel), MId circumflex stent patent, 70% stenosis 1st OM (small vessel) the lesion had HEATHER flow 3. 80% in-stent restenosis in mid RCA and occluded distal RCA. PDA has collaterals which feed from left to right. -Echo and stress, see above. -On statin, ranexa, imdur beta fredy, effient. -Atypical chest pain. -ECG with sinus bradycardia with no significant changes. -Will increase ranexa and will add ASA 81mg daily. Will add lisinopril. -Will follow up as outpatient, as previously scheduled. -Cardiology will sign off. Re-consult if needed. (STAN) Qualifiers: Coronary Disease-Associated Artery/Lesion type: [place] artery [place] vs. transplanted heart: [place] heart Associated angina: with unspecified angina Qualified Code(s): I25.119 - Atherosclerotic heart disease of [place] coronary artery with unspecified angina pectoris (3) Hypertension Current Visit: Yes Status: Chronic Per cardiology: -On lopressor 50mg BID. -BP 150-190s systolic. -HR bradycardic with avergae HR 53. -LOpressor being decreased to 25mg PO BID due to bradycardia. -Will add lsininopril 10mg PO daily. (STAN) Qualifiers: Hypertension type: essential hypertension Qualified Code(s): I10 - Essential (primary) hypertension (4) Current every day smoker Current Visit: Yes Status: Chronic Per cardiology: -CUrrent smoking. -Smoking cessation given. (STAN) Discussion w patient/family: The assessment and plan as outlined above was discussed with the patient members who expressed understanding and agreement. All questions were answered. Thank you for involving us in the care of your patient. Please call with any questions. Patient was seen and examined with ISABEL Lauren Discussed and reviewed with . History of Present Illness Consult date: 11/03/16 Requesting physician: Deidra Rivera Consult reason: Chest pain Chief complaint: Chest pain History of present illness: Mr. Cowan is a 70 year old male with a relevant past medical history of CAD, s/ p multiple interventions, HTN, hyperlipidemia, DM, nicotine dependence, PVD, MIs , Last cath 2014. Patient presented to ER with chest pain. Patient states he took 2 nitro at home without relief of symptoms so he came to ER. Patient was admitted. Patient states he had chest pain yesterday and his imdur was increased from 30mg daily to 60mg daily per primary service. Patient currently chest pain free and has not had pain since imdur increased. (STAN) Past Med Surg Social Fam HX - Past Medical History Attestation: Yes The following information was validated with the patient. Source: patient, old records reviewed Medical history: diabetes, hyperlipidemia, hypertension, myocardial infarction Psychiatric history: no psych history - Past Surgical History Surgical History: angioplasty/stent - Social History Smoking Status: Current every day smoker Alcohol use: none Drug use: none - Family History Mother Living Status: Hx Family Cardiac Disorders: Yes Hx Family Endocrine Disorder: Yes Medications and Allergies Cyanocobalamin (Vitamin B-12) [Vitamin B-12] 1,000 mcg PO DAILY 11/02/16 [ History] Insulin Glargine,Hum.rec.anlog [Lantus Solostar] 30 unit SQ BID 11/02/16 [ History] Nitroglycerin [Nitrostat] 0.4 mg SL AD PRN 11/02/16 [History] Paroxetine HCl [Paxil] 5 mg PO DAILY 11/02/16 [History] Prasugrel [Effient] 10 mg PO DAILY 11/02/16 [History] Simvastatin [Zocor] 40 mg PO HS 11/02/16 [History] Aspirin 81 mg PO DAILY #30 tab.chew 11/04/16 [Rx] Isosorbide MONOnitrate (24 HR) [Imdur] 60 mg PO DAILY #30 tab.er.24h 11/04/16 [ Rx] Lisinopril [Zestril] 10 mg PO DAILY #30 tablet 11/04/16 [Rx] Metoprolol [Lopressor] 25 mg PO BID #60 tablet 11/04/16 [Rx] Ranolazine [Ranexa] 1,000 mg PO BID #60 tab.er.12h 11/04/16 [Rx] Allergies glimepiride Adverse Reaction (Verified 11/02/16 16:19) Diarrhea metformin Adverse Reaction (Verified 11/02/16 16:19) Diarrhea All Systems Review: A 10-system review of systems was performed and is negative for pertinent findings except as documented above in the HPI. - Cardiovascular Cardiovascular: as per HPI, chest pain at rest Physical Examination Vital Signs, Last 4 Hours Temp Pulse Resp BP Pulse Ox 11/04/16 07:35 98.0 F 57 17 155/92 94 L General: No Apparent Distress HEENT: Atraumatic, Normocephaly, Mucus Membranes Moist Neck: No JVD, Normal carotid pulses Cardiac: Reg Rate and Rhythm, Normal S1 and S2, No Murmur Lungs: Normal Breath Sounds, No Wheeze, Rales, Rhonchi Neuro: Alert and responsive, No focal deficits noted Abdomen: Soft, Non-Tender Skin: No rashes noted on visualized skin Musculoskeletal: No Chest Wall Tenderness Extremities: No Clubbing, No Cyanosis, No Edema, Normal Pulses Results 11/04/16 05:17 11/04/16 05:17 Lab Results Active Medications Aspirin (Aspirin) 81 mg PO DAILY [facility] Stop: 05/06/17 10:01 Cyanocobalamin (Vitamin B12) 1,000 mcg PO DAILY [facility] Stop: 05/05/17 09:01 Last Admin: 11/03/16 13:01 Dose: 1,000 mcg Dextrose/Water (Dextrose 50% (Syg)) 25 ml IVP AD PRN PRN Reason: Hypoglycemia Stop: 05/04/17 21:34 Glucagon (Glucagen) 1 mg IM ONCE PRN PRN Reason: Hypoglycemia Stop: 05/04/17 21:34 Glucose (Gluctose) 15 gm PO ONCE PRN PRN Reason: Hypoglycemia Stop: 05/04/17 21:34 Glucose (Gluctose) 30 gm PO ONCE PRN PRN Reason: Hypoglycemia Stop: 05/04/17 21:34 Hydralazine HCl (Hydralazine) 10 mg IVP Q6HR PRN PRN Reason: Hypertension Stop: 05/05/17 16:52 Dextrose (Dextrose 5%) 1,000 mls @ 100 mls/hr IV CONT PRN PRN Reason: HYPOGLYCEMIA Stop: 05/04/17 21:34 Insulin Detemir (Levemir) 30 unit SQ BID [facility] Stop: 05/04/17 21:46 Last Admin: 11/03/16 20:10 Dose: Not Given Insulin Human Lispro (Humalog) 0 units SQ TIDAC [facility] PRN Reason: Protocol Stop: 05/05/17 07:31 Last Admin: 11/04/16 09:55 Dose: Not Given Insulin Human Lispro (Humalog) 0 units SQ [facility] PRN Reason: Protocol Stop: 05/05/17 21:01 Last Admin: 11/03/16 20:04 Dose: Not Given Isosorbide Mononitrate (Imdur) 60 mg PO DAILY [facility] Stop: 05/05/17 16:51 Lisinopril (Zestril) 10 mg PO DAILY [facility] PRN Reason: Protocol Stop: 05/06/17 10:01 Metoprolol Tartrate (Lopressor) 50 mg PO BID [facility] Stop: 05/04/17 22:01 Last Admin: 11/03/16 22:23 Dose: Not Given Morphine Sulfate (Morphine Sulfate) 2 mg IVP Q4HR PRN PRN Reason: Severe Pain (7-10) Stop: 05/04/17 15:04 Naloxone HCl (Narcan) 0.4 mg IVP Q2MIN PRN PRN Reason: Opioid Reversal Stop: 05/04/17 15:03 Naloxone HCl (Narcan) 0.4 mg IVP Q2MIN PRN PRN Reason: Opioid Reversal Stop: 05/04/17 15:04 Nitroglycerin (Nitroglycerin) 0.4 mg SL AD PRN PRN Reason: Chest Pain Stop: 05/04/17 21:32 Omeprazole (Prilosec) 20 mg PO DAILY@0630 [facility] PRN Reason: Protocol Stop: 05/05/17 06:31 Last Admin: 11/04/16 04:53 Dose: Not Given Pharmacy Profile Note (Patient Taking Own Medication) 5 each PO DAILY [facility] Stop: 05/05/17 09:01 Last Admin: 11/03/16 13:02 Dose: Not Given Prasugrel (Effient) 10 mg PO HS [facility] Stop: 05/04/17 21:01 Last Admin: 11/03/16 20:07 Dose: 10 mg Ranolazine (Ranexa) 1,000 mg PO BID [facility] Stop: 05/06/17 21:01 Simvastatin (Zocor) 40 mg PO HS [facility] PRN Reason: Protocol Stop: 05/04/17 22:01 Last Admin: 11/03/16 20:07 Dose: 40 mg Laboratory Tests 03/26/16 06/26/16 11/02/16 08:38 09:01 13:35 Creatinine 1.38 H 1.41 H 1.18 Troponin I 11/02/16 11/02/16 11/02/16 13:35 15:36 21:20 Creatinine Troponin I 0.03 0.02 0.02 11/03/16 11/03/16 11/04/16 03:42 03:42 05:17 Creatinine 1.24 1.26 H Troponin I 0.02 - Imaging and Cardiology Chest Xray: report reviewed Stress Test: report reviewed Echo: report reviewed Cardiac cath: report reviewed - EKG Interpretation EKG results cardiology: personally reviewed (ECG with sinus bradycardia.), other (24 hour telemetry reviewed with average heart rate 53 sinus bradycardia. Minimum heart rate 47. Occasional PVCs and occasional PACs.) Consult Discharge Plan - Plan Additional Instructions: Follow-up with primary care provider in one to 2 weeks, follow up with cardiology as scheduled. Keep heart rate and blood pressure log daily Referrals: Danny Parks DO [Primary Care Provider] - Jenniffer Espinoza DO [Partnered Physician] - 11/18/16 1:15 pm Prescriptions: Aspirin 81 mg PO DAILY #30 tab.chew Isosorbide MONOnitrate (24 HR) [Imdur] 60 mg PO DAILY #30 tab.er.24h Lisinopril [Zestril] 10 mg PO DAILY #30 tablet Metoprolol [Lopressor] 25 mg PO BID #60 tablet Ranolazine [Ranexa] 1,000 mg PO BID #60 tab.er.12h
--- NOTE | 2016-11-04 10:27 | Discharge Summary ---
Date of Encounter: 11/04/16 Time of Encounter: 10:15 - Discharge Diagnosis (1) Chest pain Priority: Primary Status: Acute Comments: Patient denied chest pain on day of discharge. Seen and evaluated by cardiology who recommended medical management. M.D. or increased, Ranexa increased, baby aspirin added, lisinopril added, and metoprolol dosage decreased. Follow-up outpatient. Qualifiers: Qualified Code(s): R07.9 - Chest pain, unspecified (2) Current every day smoker Priority: Secondary Status: Chronic Comments: Declined counseling (3) DVT prophylaxis Priority: Primary Status: Acute Comments: IPC's ordered while admitted (4) Diabetes mellitus Priority: Secondary Status: Chronic Comments: Relatively well-controlled at home with an A1c of 7.2%. Recommend continued follow-up outpatient (5) Hypertension Priority: Secondary Status: Chronic Comments: Borderline hypertensive at times as he was bradycardic and his metoprolol dosage was being held. Decreased metoprolol doses of discharge, lisinopril added, Imdur and Ranexa increased and baby aspirin added. Heart rate and blood pressure log at home, follow-up outpatient Qualifiers: Qualified Code(s): I10 - Essential (primary) hypertension - Discharge Medications Prescriptions: Aspirin 81 mg PO DAILY #30 tab.chew Isosorbide MONOnitrate (24 HR) [Imdur] 60 mg PO DAILY #30 tab.er.24h Lisinopril [Zestril] 10 mg PO DAILY #30 tablet Metoprolol [Lopressor] 25 mg PO BID #60 tablet Ranolazine [Ranexa] 1,000 mg PO BID #60 tab.er.12h Home Medications: Cyanocobalamin (Vitamin B-12) [Vitamin B-12] 1,000 mcg PO DAILY 11/02/16 [ History] Insulin Glargine,Hum.rec.anlog [Lantus Solostar] 30 unit SQ BID 11/02/16 [ History] Nitroglycerin [Nitrostat] 0.4 mg SL AD PRN 11/02/16 [History] Paroxetine HCl [Paxil] 5 mg PO DAILY 11/02/16 [History] Prasugrel [Effient] 10 mg PO DAILY 11/02/16 [History] Simvastatin [Zocor] 40 mg PO HS 11/02/16 [History] Aspirin 81 mg PO DAILY #30 tab.chew 11/04/16 [Rx] Isosorbide MONOnitrate (24 HR) [Imdur] 60 mg PO DAILY #30 tab.er.24h 11/04/16 [ Rx] Lisinopril [Zestril] 10 mg PO DAILY #30 tablet 11/04/16 [Rx] Metoprolol [Lopressor] 25 mg PO BID #60 tablet 11/04/16 [Rx] Ranolazine [Ranexa] 1,000 mg PO BID #60 tab.er.12h 11/04/16 [Rx] Allergies/Adverse Reactions: Allergies glimepiride Adverse Reaction (Verified 11/02/16 16:19) Diarrhea metformin Adverse Reaction (Verified 11/02/16 16:19) Diarrhea Procedures/tests Complete & Pending: Procedures Performed prior 72 hours Category Date Time Status NM rachel perf SPECT multi [NM] Routine Exams 11/03/16 08:53 Taken EV echocardiogram Routine Y 11/03/16 15:08 Completed SP pharm nuclear stress Routine Y 11/03/16 08:52 Completed Date of admission: 11/02/16 14:42 Primary care physician: Danny Parks DO Consults: 11/02/16 21:33 Consult to Tab Machine Operator [CONS] Routine Comment: 11/03/16 16:51 Consult to Cardiology [CONS] Routine Comment: Consulting Provider: Maxine Plunkett Reason for Consult: ongoing bouts of chest pain- same as prior events with necessitated stents. Will make NPO at midnight. Time Notified: 16:00 Call Completed: Yes Discharging clinician: Deidra Rivera Anticipated date of discharge: 11/04/16 (cards- medical management) - Patient Status Disposition: Home, Self-Care Condition: Fair Functional capacity at discharge: independent ambulation Overall status at discharge: patient is back to baseline - Discharge Instructions Follow Up With: Danny Parks DO [Primary Care Provider] - Jenniffer Espinoza DO [Partnered Physician] - 11/18/16 1:15 pm Additional Instructions: Follow-up with primary care provider in one to 2 weeks, follow up with cardiology as scheduled. Keep heart rate and blood pressure log daily - Diet and Activity Activity: increase activity as tolerated Diet: diabetic diet, low fat, low cholesterol, low salt diet Hospital course: Mr. Cowan is a 70 year old male with past medical history of CAD status post stents 7, diabetes, hyperlipidemia, hypertension. Patient presented to the emergency room chief complaint ongoing chest discomfort 3 days. Patient stating on the day of presentation that his chest discomfort had worsened prompting his presentation to the emergency department. Patient stating the chest pain is precordial in nature, without radiation, localized, and worsened with inspiration and relieved with rest. Patient stating the pain is intermittent, sharp and stabbing and is associated with progressively worsening fatigue. Patient denied nausea, vomiting, abdominal pain, diarrhea, dizziness or palpitations. Workup in the emergency department unremarkable. ECG without acute changes. Chest x-ray negative. Patient was admitted to the hospitalist service for further evaluation and management. Patient continued to endorse bouts of self-limiting chest pain while admitted and stated his pain was similar to prior times when he had to have stents. Echocardiogram with ejection fraction of 45-50%, moderate LVH with moderate diastolic dysfunction. Compared to prior echocardiogram from August 2015 which revealed ejection fraction of 55%, mild diastolic dysfunction. Stress test revealing old [place] but no acute areas of reversible ischemia. Cardiology brought on board for possible left heart catheter given his history and his continued anginal symptoms. Cardiology discussed the possible left heart catheter but the decision was made to proceed with medical management. Of note, his metoprolol was held during this admission due to bradycardia so his hypertension was uncontrolled. His Imdur was increased, his Ranexa was increased, lisinopril and baby aspirin were added to his regimen, and his metoprolol dosage was decreased. He is discharged home in stable condition with close outpatient follow-up recommended. He was instructed to keep her heart rate and blood pressure log daily. He denied chest pain on day of discharge. ITS Impressions Chest X-Ray 11/02/16 12:32 IMPRESSION: No acute abnormality. D/ / Larry Evans MD / Larry Evans MD Interpreting Provider: Larry Evans MD Echocardiogram impressions: Sinus bradycardia, heart rate in the 50s. LVEF 45- 50%. Mild global to low normal LV systolic dysfunction. There is evidence of moderate diastolic dysfunction of the left ventricle. Moderate concentric hypertrophy of the left ventricle. RV is elevated visualized. Mild mitral regurgitation. No pulmonary hypertension. Nuclear stress test impression: Perfusion imaging was negative for ischemia. Basal and mid inferior and inferolateral wall infarct. Pharmacologic ECG is nondiagnostic for ischemia. Patient described chest pain, headache and stomach cramps with pharmacologic stress. Gated ejection fraction equals 46%. LV is mildly dilated. Recommend clinical correlation. - Time Spent with Patient Total time spent providing and/or coordinating discharge services: - Constitutional Vitals: Temp Pulse Resp BP Pulse Ox 98.0 F 57 17 155/92 94 L 11/04/16 07:35 11/04/16 07:35 11/04/16 07:35 11/04/16 07:35 11/04/16 07:35 General appearance: Present: A&O X 3, pleasant, no acute distress, answers questions appropriately - Head Head exam: Present: atraumatic, normocephalic - Eye Eye exam: Present: PERRL, conjuntiva pink, sclera anicteric Pupils: Present: PERRL - Neck Neck exam general surgery: Present: supple, trachea midline. Absent: lymphadenopathy - Respiratory Respiratory exam: Present: decreased breath sounds. Absent: accessory muscle use, rales, respiratory distress, rhonchi, wheezes - Cardiovascular Cardiovascular exam: Present: RRR, +S1, +S2. Absent: diastolic murmur, gallop, rubs, systolic murmur - GI/Abdominal GI/Abdominal exam: Present: normal bowel sounds, soft, no peritoneal signs. Absent: distended, tenderness - Extremities Exam Extremities exam: Present: warm, radial pulses palpable and symetrical. Absent : calf tenderness, cyanotic, pedal edema - Neurological Exam Neurological exam: Present: alert, CN II-XII intact, normal gait, oriented X3, no focal deficits, strengths equal and symetr throughout. Absent: pronater drift, facial droop, speech deficit - Skin Skin exam: Present: dry, intact, normal color, warm
[2016-11-04] MEDS ORDERED: Ranolazine 500 MG TAB.ER.12H PO SCH (21:00)
== END 2016-11-04 11:40 | disposition home or self-care (01) ==
LOC: 3BNU 12:15 → EMEROO 12:15 → 3BNU 15:03
PROVIDERS: ADMIT Nurse Practitioner Family; ATTEND Nurse Practitioner Family

== ENCOUNTER 2017-02-03 16:34 | Observation (INO) ==
[2017-02-03] MEDS ORDERED: Aspirin 81 MG TAB.CHEW PO STA (17:02)
[2017-02-03] MEDS ORDERED: Nitroglycerin 0.4 MG TAB.SUBL SL PRN ×2 (17:02→22:19)
--- NOTE | 2017-02-03 17:27 | Emergency Department Note ---
START Narrative - START START: I examined this patient and my medical decision-making was reviewed with the ACCOUNT RECEIVABLE CLERK/PA/Advanced Practice Nurse/Resident Physician. I agree with the documented findings, disposition and treatment plan as described except to the extent set forth below.
[2017-02-03] MEDS: 0.9 % Sodium Chloride 1,000 ML IVC SCH (17:38)
[2017-02-03 17:39] LABS: Basophils # 0.1 K/mcL (0.0-0.2); Basophils % 0.8 %; Eosinophils % 12.6 %; Hematocrit 40.6 % (37.5-50.1); Hemoglobin 14.2 g/dL (12.9-16.9); Immature Granulocytes % 0.5 % (0-4); Lymphocytes # 2.8 K/mcL (0.6-4.6); Lymphocytes % 36.5 %; Mean Corpuscular Hemoglobin 28.3 pg (28.0-33.3); Monocytes # 0.7 K/mcL (0.0-1.3); Neutrophils # 3.1 K/mcL (1.6-8.9); Platelet Count 311 K/mcL (140-400); Red Blood Count 5.01 M/mcL (4.19-5.50); Red Cell Distribution Width 13.6 % (11.5-14.5); Segmented Neutrophils % 40.6 %
[2017-02-03 17:46] LABS: INR 1.1; Prothrombin Time 11.7 Seconds (9.4-12.1)
[2017-02-03 17:48] LABS: Activated Partial Thrombo Time 35.4 Seconds (26.0-36.0)
[2017-02-03 17:49] LABS: BUN/Creatinine Ratio 9 (6-26); Blood Urea Nitrogen 11 mg/dL (8-26); Carbon Dioxide 24 mEq/L (19-29); Chloride 107 mEq/L (98-109); Glucose 133 mg/dL (70-99); Osmolality,Calculated 287 (280-300); Potassium 3.9 mEq/L (3.5-4.5); Sodium 138 mEq/L (136-145); eGFR For African Americans > 60 (> 60); eGFR For Non-African Americans > 60 (> 60)
--- NOTE | 2017-02-03 18:05 | Emergency Department Note ---
Disposition Clinical Impression: Atypical chest pain, Current every day smoker CAD (coronary artery disease) Qualifiers: Coronary Disease-Associated Artery/Lesion type: unspecified vessel or lesion type [place] vs. transplanted heart: [place] heart Associated angina: with stable angina Qualified Code(s): I25.118 - Atherosclerotic heart disease of [place] coronary artery with other forms of angina pectoris Disposition: Admitted As Inpatient Condition: Good Referrals: Unassigned,Provider [Non-Partnered Physician] - Forms: ED Satisfaction Letter Time of Disposition: 19:35 Chest Pain HPI - General Chief Complaint: ED Chest Pain Stated Complaint: Chest pain Time Seen by Provider: 02/03/17 16:47 Source: patient Mode of arrival: ambulatory Limitations: no limitations Vital Signs Reviewed: Yes Nursing Notes Reviewed: Yes - History of Present Illness HPI Narrative: Patient presents emergency room and complained 24-48 hours worth of chest pain. He has right-sided substernal chest pain similar to when he had previous myocardial infarction. He is evaluated 5 months ago for similar. He attempted to take aspirin and nitroglycerin at home without any relief. Patient is currently denying any specific symptoms. He denies shortness of breath headache vision changes nausea vomiting or diarrhea. Main complaint is chest pain and increased weakness with exertion or physical activity. Pt complaint: chest pain Onset (ago): day(s) Duration: constant Onset: during rest, during exertion Pain Location: substernal, right chest Severity: mild Severity scale (1-10): 0 Quality: aching Pain Radiation: none Improves with: nothing Worsens with: exertion Context: new medications Associated symptoms: Reports: palpitations Treatments prior to arrival chest pain: aspirin, nitroglycerin - Related Data Home Medications Medication Instructions Recorded Confirmed Cyanocobalamin (Vitamin B-12) 1,000 mcg PO DAILY 11/02/16 11/02/16 [Vitamin B-12] Insulin Glargine,Hum.rec.anlog 30 unit SQ BID 11/02/16 11/02/16 [Lantus Solostar] Nitroglycerin [Nitrostat] 0.4 mg SL AD PRN 11/02/16 11/02/16 Paroxetine HCl [Paxil] 5 mg PO DAILY 11/02/16 11/02/16 Prasugrel [Effient] 10 mg PO DAILY 11/02/16 11/02/16 Simvastatin [Zocor] 40 mg PO HS 11/02/16 11/02/16 Previous Rx's Medication Instructions Recorded Aspirin 81 mg PO DAILY #30 tab.chew 11/04/16 Isosorbide MONOnitrate (24 HR) 60 mg PO DAILY #30 tab.er.24h 11/04/16 [Imdur] Metoprolol [Lopressor] 25 mg PO BID #60 tablet 11/04/16 Ranolazine [Ranexa] 1,000 mg PO BID #60 tab.er.12h 11/04/16 Allergies Allergy/AdvReac Type Severity Reaction Status Date / Time glimepiride AdvReac Diarrhea Verified 11/02/16 16:19 metformin AdvReac Diarrhea Verified 11/02/16 16:19 All systems ED: reviewed and negative except as stated. Constitutional: Denies: fever, chills Cardiovascular: Reports: chest pain, palpitations. Denies: dyspnea on exertion , orthopnea, edema Respiratory: Denies: cough, dyspnea, wheezes Gastrointestinal: Denies: abdominal pain, nausea, vomiting, diarrhea Genitourinary: Denies: dysuria, frequency Musculoskeletal: Denies: back pain, neck pain Endocrine: Reports: fatigue Chest Pain PMH - Past Medical History Medical history: Reports: diabetes, hyperlipidemia, hypertension, myocardial infarction Surgical history: Reports: angioplasty/stent Psychiatric history: Reports: no psych history - Social History Smoking Status: Current every day smoker Alcohol use: Reports: none Drug use: Reports: none Physical Exam - General Limitations: no limitations General appearance: alert - Neck Neck exam: Present: normal inspection, full ROM, trachea midline - Chest Chest inspection: Present: normal inspection, symmetric chest wall rise - Respiratory Respiratory exam: Present: normal lung sounds bilaterally - Cardiovascular Cardiovascular exam: Present: regular rate, normal rhythm, normal heart sounds - Abdominal Exam Abdominal exam: Present: soft, Non-Tender, normal bowel sounds. Absent: tenderness, distention, guarding, rebound, rigidity, Williamson's sign, Rovsing's sign, tenderness at McBurney's Point - Extremities Exam Extremities exam: Present: normal inspection, full ROM, normal capillary refill. Absent: tenderness, pedal edema - Back Exam Back exam: Present: normal inspection, full ROM. Absent: tenderness - Neurological Exam Neurological exam: Present: alert, oriented X3, CN II-XII intact, normal gait - Skin Skin exam: Present: warm, dry, intact, normal color Course Course Narrative: Patient seen and examined the time of arrival. See history of present illness. 71-year-old male presents with anginal like chest pain similar to previous myocardial infarction. He was evaluated 5 months ago for similar. He is under the care of the ornamenter at this facility Dr. Espinoza. He has had several medication changes over the last couple months. Today he presents with 2 days worth of substernal right-sided chest pain similar to previous. He was concerned he is having cardiac related issues again. EKG shows sinus rhythm with chronic abnormalities including Q waves in lead 3. Patient is currently denying any chest pain symptoms on initial presentation in the emergency room. He says that the symptoms come and go they are sharp in nature and then acutely resolved. Physical exam is benign. Lungs are clear heart is regular abdomen is soft nontender nondistended no guarding or rigidity no peritoneal symptoms no pulsatile lesions or masses. Patient is mentating appropriate speaking in full sentences and has no reproducible chest pain on exam. Currently is denying shortness of breath fevers chills nausea vomiting or diarrhea. Headache or vision change. He denies any recent illnesses trauma or injury. He denies any acute medication changes or symptoms since starting the medication several months ago. Concern is noted for ACS secondary to patient's history of medical presentation. Nitroglycerin given here in the emergency room along with fluids. Aspirin and nitroglycerin were taken at home without any significant relief. Chest x-ray EKG troponin and basic CBC and chemistry panel ordered at this time as well as BNP. Patient will most likely need admission at this point secondary to presentation symptoms being concerning for angina-like symptoms and acute coronary syndrome. Disposition pending this workup and treatment course. - Reevaluation(s) Reevaluation #1: Patient has mildly elevated BNP. Patient also has exertional dyspnea along with generalized weakness. His heart rate is persistently in the upper 40s. He usually is in the upper 50s. He has known baseline chronic bradycardia. My concern at this point is that the patient has underlying progression of his left ventricular heart failure based on his previous echo on October as well is overmedication with the cardiac medications that he has been started on the last several months. Patient does have symptoms of reactive airway disease secondary to the weather changes in his chronic smoking. He is requesting not to have breathing treatments or treatments at this time. At this point patient will be brought in the hospital for evaluation of what appears to be concerned for cardiac related source of medication related issues. No other recommendations or concerns are noted at this time. The hospital since patient at this time for admission Time: 19:34 Reevaluation #2: Patient discussed and reviewed with the hospitalist Dr. Garcia.. Detailed review the presentation symptoms medical history and presentation. Emergency room are discussed. No other concerns or issues at this time. Happy to admit the patient for what appears to be symptomatically bradycardic exertional dyspnea and anginal like symptoms. Patient is otherwise stable at this time. We will continue to monitor in the emergency room his admission process is completed. I discussed the presentation symptoms intervention and my recommendation for admission with the patient as well as the family is at the bedside. He is comfortable with this plan at this time. He just wants to feel better because he is not able to perform his acts daily living like he has normally done for many years. Patient is otherwise stable resting comfortably in the bed. We will continue to monitor here until admission is completed Time: 19:59 Vital Signs Temperature 97.7 F 02/03/17 16:40 Pulse Rate 51 02/03/17 16:40 Respiratory Rate 18 02/03/17 16:40 Blood Pressure 154/83 02/03/17 16:40 O2 Sat by Pulse Oximetry 98 02/03/17 16:40 Temperature 97.7 F 02/03/17 16:40 Pulse Rate 49 02/03/17 17:23 Respiratory Rate 18 02/03/17 17:23 Blood Pressure 143/87 02/03/17 17:23 O2 Sat by Pulse Oximetry 97 02/03/17 17:23 Oxygen Delivery Oxygen Delivery Room Air Chest Pain - MDM Narrative Medical decision making narrative: Chest pain, shortness of breath, generalized malaise, bradycardia - Medical Records Medical records reviewed: Yes I reviewed the patient's medical records. - Lab Data Lab results reviewed: Yes I reviewed the patient's lab results. Result diagrams: 02/03/17 17:28 02/03/17 17:28 Lab Results 02/03/17 02/03/17 02/03/17 Range/Units 17:28 17:28 17:28 WBC 7.5 (4.3-11.1) K/mcL RBC 5.01 (4.19-5.50) M/mcL Hgb 14.2 (12.9-16.9) g/dL Hct 40.6 (37.5-50.1) % MCV 81.0 L (83.0-100.0) fL MCH 28.3 (28.0-33.3) pg MCHC 35.0 (31.6-35.5) g/dL RDW 13.6 (11.5-14.5) % Plt Count 311 (140-400) K/mcL MPV 10.0 (9.4-12.4) fL Immature Gran % 0.5 (0-4) % Seg Neutrophils % 40.6 % Lymphocytes % 36.5 % Monocytes % 9.0 % Eosinophils % 12.6 % Basophils % 0.8 % Neutrophils # 3.1 (1.6-8.9) K/mcL Lymphocytes # 2.8 (0.6-4.6) K/mcL Monocytes # 0.7 (0.0-1.3) K/mcL Eosinophils # 1.0 H (0.0-0.6) K/mcL Basophils # 0.1 (0.0-0.2) K/mcL PT 11.7 (9.4-12.1) Seconds INR 1.1 APTT 35.4 (26.0-36.0) Seconds Sodium (136-145) mEq/L Potassium (3.5-4.5) mEq/L Chloride (98-109) mEq/L Carbon Dioxide (19-29) mEq/L BUN (8-26) mg/dL Creatinine (0.72-1.25) mg/dL Est GFR ( Amer) (> 60) Est GFR (Non-Af Amer) (> 60) BUN/Creatinine Ratio (6-26) Glucose (70-99) mg/dL Calculated Osmolality (280-300) Calcium (8.6-10.8) mg/dL Troponin I (0-0.03) ng/mL B-Natriuretic Peptide 141 H (0-100) pg/mL 02/03/17 02/03/17 Range/Units 17:28 17:28 WBC (4.3-11.1) K/mcL RBC (4.19-5.50) M/mcL Hgb (12.9-16.9) g/dL Hct (37.5-50.1) % MCV (83.0-100.0) fL MCH (28.0-33.3) pg MCHC (31.6-35.5) g/dL RDW (11.5-14.5) % Plt Count (140-400) K/mcL MPV (9.4-12.4) fL Immature Gran % (0-4) % Seg Neutrophils % % Lymphocytes % % Monocytes % % Eosinophils % % Basophils % % Neutrophils # (1.6-8.9) K/mcL Lymphocytes # (0.6-4.6) K/mcL Monocytes # (0.0-1.3) K/mcL Eosinophils # (0.0-0.6) K/mcL Basophils # (0.0-0.2) K/mcL PT (9.4-12.1) Seconds INR APTT (26.0-36.0) Seconds Sodium 138 (136-145) mEq/L Potassium 3.9 (3.5-4.5) mEq/L Chloride 107 (98-109) mEq/L Carbon Dioxide 24 (19-29) mEq/L BUN 11 (8-26) mg/dL Creatinine 1.17 (0.72-1.25) mg/dL Est GFR ( Amer) > 60 (> 60) Est GFR (Non-Af Amer) > 60 (> 60) BUN/Creatinine Ratio 9 (6-26) Glucose 133 H (70-99) mg/dL Calculated Osmolality 287 (280-300) Calcium 9.0 (8.6-10.8) mg/dL Troponin I 0.02 (0-0.03) ng/mL B-Natriuretic Peptide (0-100) pg/mL - Radiology Data Radiology results reviewed: Yes I reviewed the patient's radiology results. - EKG Data EKG attestation: Yes I reviewed and interpreted this EKG. EKG shows normal: sinus rhythm, axis, intervals, QRS complexes, ST-T waves Rate: bradycardia Rhythm: NSR [place]/QRS: normal When compared to previous EKG there are: no significant changes Interpretation: no acute changes, unchanged when compared to prior tracing (date ) (Patient has mild change in the Q waves in lead 3. Otherwise morphology is similar in presentation EKG performed in October of this year) Heart Score - Score History: Moderately Suspicious EKG: Non Specific repolarisation Disturbance Age: Greater than 65 Risk Factors: Equal/Greater than 3 risk factor or history of atherosclerotic disease Troponin: Less than normal limit HEART Score Total: 6
[2017-02-03 18:44] LABS: Thyroid Stimulating Hormone 1.018 mcIU/mL (0.350-4.840)
[2017-02-03] MEDS ORDERED: *HR* HYDROcodone/Acet 5/325 mg TABLET PO PRN (22:15)
[2017-02-03] MEDS ORDERED: Ondansetron 4 MG/2 ML VIAL IVP PRN (22:15)
[2017-02-03] MEDS ORDERED: *HR* Morphine 2 MG/ML SYRINGE IVP PRN (22:15)
[2017-02-03] MEDS ORDERED: Acetaminophen 325 MG TABLET PO PRN (22:15)
[2017-02-03] MEDS ORDERED: Naloxone 0.4 MG/ML INJ IVP PRN (22:15)
[2017-02-03] MEDS ORDERED: D5% in Water 1,000 ML IVC PRN (22:28)
[2017-02-03] MEDS ORDERED: Dextrose Gel 15 GM PO PRN ×2 (22:28)
[2017-02-03] MEDS ORDERED: *HR* Dextrose 50 % in Water (Syg) 50 ML SYRINGE IVP PRN (22:28)
--- NOTE | 2017-02-03 22:31 | Internal Med History&Physical ---
<AndrewCaleb Narvaez - Last Filed: 02/03/17 23:01> Date of Encounter: 02/03/17 Time of Encounter: 22:00 Assessment and Plan (1) Chest pain Current visit: Yes Status: Acute Assess: Mr. Cowna is a 71 year old male presents from the ED with chief complaint of chest pain which he reports began yesterday midmorning and increased in intensity. Patient describes pain is centralized in his chest which radiates to his left arm and qualifies the pain is sharp and stabbing. He reports aspirin and nitroglycerin taken at home did not provide relief. Mr. Cowan describes symptoms with chest pain as weakness, sleepiness, chills, palpitations , and chest pressure. Plan: EV limited echocardiogram ordered Continuous cardiac telemetry ordered Supplemental O2 ordered with titration if SPO2 less than 92% Continuous SPO2 monitoring Continue nitroglycerin when necessary Continue Zocor Continue Ranexa Continue Lopressor Continue Imdur Consider cardiology consult based on results of the EV llimited echocardiogram Consider increasing Imdur to 90 mg based on symptomatology Cardiac diet ordered Qualifiers: Chest pain type: unspecified Qualified Code(s): R07.9 - Chest pain, unspecified (2) Hyperlipidemia Current visit: Yes Status: Chronic Assess: Patient presents with history of chronic hyperlipidemia. Plan: Lipid panel ordered Continue Zocor Follow-up labs ordered Qualifiers: Hyperlipidemia type: unspecified Qualified Code(s): E78.5 - Hyperlipidemia , unspecified (3) Diabetes mellitus Current visit: Yes Status: Chronic Assess: Patient presents with history of chronic diabetes mellitus, type 2 with use of Lantus pen. Plan: Continue patient's insulin regimen Correction insulin dosing ordered Hypoglycemic protocol ordered Blood glucose monitoring ordered ACHS A1C ordered Diabetic diet ordered Qualifiers: Diabetes mellitus type: type 2 Diabetes mellitus complication status: with unspecified complications Diabetes mellitus correction insulin use: without keno terminal operator use Qualified Code(s): E11.8 - Type 2 diabetes mellitus with unspecified complications (4) Hypertension Current visit: Yes Status: Chronic Assess: Patient presents with history of chronic hypertension. Plan: Continue Lopressor Monitor patient and vital signs Qualifiers: Hypertension type: essential hypertension Qualified Code(s): I10 - Essential (primary) hypertension (5) Current every day smoker Current visit: Yes Status: Chronic Assess: Patient presents with history of every day smoking. Patient reports he smokes between 1 and 5 cigars daily. Plan: Patient educated on tobacco cessation methods Nicotine patch offered to patient if requested (6) DVT prophylaxis Current visit: Yes Status: Acute Assess: Patient to be placed on DVT prophylaxis per inpatient protocol and bedrest status. Plan: Heparin 5,000 units SQ Q8 ordered Internal Medicine - H&P: HPI Chief complaint: Chest pain Admitted From: Emergency Dept Plans for Post Hospital Care: Home History of present illness: Mr. Cowan is a 71 year old male presents from the ED with chief complaint of chest pain which he reports began yesterday midmorning and increased in intensity. Patient describes pain is centralized in his chest which radiates to his left arm and qualifies the pain is sharp and stabbing. He reports aspirin and nitroglycerin taken at home did not provide relief. Mr. Cowan describes symptoms with chest pain as weakness, sleepiness, chills, palpitations , and chest pressure. Patient has a history of diabetes, hyperlipidemia, hypertension, myocardial infarction, past angioplasties with 5 stent placements , and is a current smoker of cigars. Patient denies shortness of breath, headache, vision changes, nausea, vomiting, or diarrhea. Mr. Cowan was evaluated approximately 5 months earlier with similar symptoms. Nuclear stress test performed 11/03/16 shows gated EF = 46%, LV mildly dilated, perfusion imaging was negative for ischemia, basal and mid inferior and inferolateral wall infarct, and pharmacologic EKG was nondiagnostic for ischemia. Mr. Cowan was placed as observation status with order for EV limited echocardiogram, continuous cardiac telemetry, continuous SPO2 monitoring, supplemental O2 oxygen with titration if SPO2 less than 92%. We will consider cardiology consult based on results of EV limited echocardiogram. We will also consider increasing Imdur to 90 mg based on symptomatology. Patient to be monitored closely. Past Med Surg Social Fam HX - Past Medical History Source: patient Medical history: diabetes, hyperlipidemia, hypertension, myocardial infarction Psychiatric history: no psych history - Past Surgical History Surgical History: angioplasty/stent (5 stents placed) - Social History Smoking Status: Current every day smoker Packs per day: 1-5 cigars daily Smokeless Tobacco Status: No Alcohol use: none Drug use: none Occupational status: employed Current living situation: Home, With Family Activity Level: Independent ambulation Recent Out of Country Travel Within the Last 8 Weeks: No Exposure or Possible Exposure to Illness During Travel: No - Family History Mother Race: Family Member Ethnicity: Non- Living Status: Age at : 69 Cause of : CHF Hx Family Cardiac Disorders: Yes (CHF) Hx Family Endocrine Disorder: Yes (DM) Father Race: Family Member Ethnicity: Non- Living Status: Age at : 76 Cause of : Prostate cancer Hx Family Cardiac Disorders: Yes (HD) Hx Family Endocrine Disorder: Yes (DM) Brother Race: Family Member Ethnicity: Non- Living Status: Age at : 41 Cause of : CHF Hx Family Cardiac Disorders: Yes (CHF) Internal Medicine - H&P: Meds Cyanocobalamin (Vitamin B-12) [Vitamin B-12] 1,000 mcg PO DAILY 11/02/16 [ History] Insulin Glargine,Hum.rec.anlog [Lantus Solostar] 30 unit SQ BID 11/02/16 [ History] Nitroglycerin [Nitrostat] 0.4 mg SL AD PRN 11/02/16 [History] Paroxetine HCl [Paxil] 5 mg PO DAILY 11/02/16 [History] Prasugrel [Effient] 10 mg PO DAILY 11/02/16 [History] Simvastatin [Zocor] 40 mg PO HS 11/02/16 [History] Aspirin 81 mg PO DAILY #30 tab.chew 11/04/16 [Rx] Isosorbide MONOnitrate (24 HR) [Imdur] 60 mg PO DAILY #30 tab.er.24h 11/04/16 [ Rx] Metoprolol [Lopressor] 25 mg PO BID #60 tablet 11/04/16 [Rx] Ranolazine [Ranexa] 1,000 mg PO BID #60 tab.er.12h 11/04/16 [Rx] Allergies glimepiride Adverse Reaction (Verified 11/02/16 16:19) Diarrhea metformin Adverse Reaction (Verified 11/02/16 16:19) Diarrhea All Systems PM: A 10-system review of systems was performed and is negative for pertinent findings except as documented above in the HPI. - Constitutional Constitutional: as per HPI, chills, weakness, no fever(s), no night sweats - EENT Eyes: no change in vision, no discharge, no pain, no photophobia Ears: no ear discharge, no ear pain, no tinnitus Nose, mouth and throat: no dysphagia, no nasal discharge, no neck pain, no sore throat - Breasts Breasts: as per HPI - Cardiovascular Cardiovascular ROS IM: as per HPI, chest pain, no diaphoresis, no dyspnea, no lightheadedness, no palpitations, no syncope - Respiratory Respiratory: no cough, no dyspnea, no wheezing, no excessive phlegm production - Gastrointestinal Gastrointestinal: no abdominal pain, no diarrhea, no hematemesis, no hematochezia, no melena, no nausea, no vomiting - Genitourinary Genitourinary ROS male: as per HPI, urinary urgency - Musculoskeletal Musculoskeletal ROS IM: no numbness, no tingling - Integumentary Integumentary IM: no rash, no unusual bruising - Neurological Neurological ROS: no confusion, no convulsions, no focal weakness, no numbness, no tingling, no tremor(s) - Psychiatric Psychiatric: as per HPI - Endocrine Endocrine IM: as per HPI - Hematologic/Lymphatic Hematologic/Lymphatic: no easy bruising - Allergic/Immunologic Allergic/Immunologic: as per HPI - Constitutional Vitals: Temp Pulse Resp BP Pulse Ox 97.7 F 51 18 163/95 97 02/03/17 16:40 02/03/17 21:20 02/03/17 21:20 02/03/17 21:20 02/03/17 21:20 General appearance: Present: cooperative, A&O X 3, pleasant, no acute distress, obese - Head Head exam: Present: atraumatic, normocephalic - Eye Eye exam: Present: PERRL, conjuntiva pink, sclera anicteric Pupils: Present: PERRL - ENT ENT exam: Present: normal exam, normal external ear exam - Neck Neck exam general surgery: Present: supple, trachea midline. Absent: lymphadenopathy - Respiratory Respiratory exam: Present: CTAB. Absent: accessory muscle use, rales, rhonchi, wheezes - Cardiovascular Cardiovascular exam: Present: RRR, +S1, +S2. Absent: diastolic murmur, gallop, rubs, systolic murmur - GI/Abdominal GI/Abdominal exam: Present: normal bowel sounds, soft, no peritoneal signs. Absent: distended, tenderness - Rectal Rectal exam: Present: deferred - Additional comments: exam deferred. - Extremities Exam Extremities exam: Present: warm, radial pulses palpable and symetrical. Absent : calf tenderness, cyanotic, pedal edema - Back Exam Back exam: Present: normal inspection - Neurological Exam Neurological exam: Present: CN II-XII intact, oriented X3, no focal deficits. Absent: pronater drift, facial droop, speech deficit - Psychiatric Psychiatric exam: Present: normal affect, normal mood - Skin Skin exam: Present: dry, intact Internal Med - H&P Results - Labs CBC & Chem 7: 02/03/17 17:28 02/03/17 17:28 <Markell Carrera H - Last Filed: 02/03/17 23:12> Date of Encounter: 02/03/17 Internal Medicine - H&P: HPI History of present illness: Mr. Cowan is a 71 year old male All Systems PM: A 10-system review of systems was performed and is negative for pertinent findings except as documented above in the HPI. - Constitutional Vitals: Temp Pulse Resp BP Pulse Ox 98.3 F 83 17 153/93 96 02/03/17 22:36 02/03/17 22:36 02/03/17 22:36 02/03/17 22:36 02/03/17 22:36 Internal Med - H&P Results - Labs CBC & Chem 7: 02/03/17 17:28 02/03/17 17:28 - Attending Attestation 1. Chest pain Continue aspirin, order limited echocardiogram, follow troponins, consider cardiology consult for the morning if there are not any abnormalities 2. Diabetes type 2 continue insulin sliding scale 3. Tobacco use, smoking cessation counseling given for 5 minutes. Nicotine patch 4. Hypertension, stable Admitted for observation. Time spent on this admission 40 minutes. I examined this patient and my medical decision-making was reviewed with the CURRICULUM DIRECTOR/PA/Advanced Practice Nurse/Resident Physician. I agree with the documented findings, disposition and treatment plan as described except to the extent set forth below.
[2017-02-03] MEDS: Insulin DETEMIR 100 UNIT/ML X5UNITS SQ SCH (23:39)
[2017-02-04 01:55] LABS: Hemoglobin A1C 6.3 %
[2017-02-04 01:58] LABS: Basophils # 0.1 K/mcL (0.0-0.2); Basophils % 0.8 %; Eosinophils % 11.3 %; Hematocrit 38.9 % (37.5-50.1); Hemoglobin 13.7 g/dL (12.9-16.9); Immature Granulocytes % 0.4 % (0-4); Lymphocytes # 3.4 K/mcL (0.6-4.6); Lymphocytes % 38.7 %; Mean Corpuscular HGB Conc 35.2 g/dL (31.6-35.5); Mean Corpuscular Volume 82.4 fL (83.0-100.0); Mean Platelet Volume 10.8 fL (9.4-12.4); Monocytes # 0.8 K/mcL (0.0-1.3); Monocytes % 8.8 %; Neutrophils # 3.6 K/mcL (1.6-8.9); Platelet Count 292 K/mcL (140-400); Red Blood Count 4.72 M/mcL (4.19-5.50); Red Cell Distribution Width 13.4 % (11.5-14.5)
[2017-02-04 02:07] LABS: Alanine Aminotransferase 10 Units/L (0-55); Alkaline Phosphatase 79 Units/L (38-126); Aspartate Amino Transferase 12 Units/L (5-34); BUN/Creatinine Ratio 9 (6-26); Bilirubin,Total 0.5 mg/dL (0.2-1.2); Blood Urea Nitrogen 12 mg/dL (8-26); Calcium 8.6 mg/dL (8.6-10.8); Carbon Dioxide 25 mEq/L (19-29); Chloride 109 mEq/L (98-109); Chol/HDL Ratio 3.5 (0-4.9); Cholesterol 113 mg/dL (< 200); Globulin 3.1 g/dL (2.4-3.5); Glucose 131 mg/dL (70-99); HDL Cholesterol 32 mg/dL (40-59); LDL Cholesterol,Calculated 55 mg/dL (0-99); Magnesium 1.7 mg/dL (1.6-2.6); Osmolality,Calculated 292 (280-300); Potassium 3.8 mEq/L (3.5-4.5); Sodium 140 mEq/L (136-145); Total Protein 6.1 g/dL (6.0-8.3); Triglycerides 128 mg/dL (< 150); eGFR For African Americans > 60 (> 60); eGFR For Non-African Americans 54 (> 60)
[2017-02-04] MEDS: *HR* Heparin 5,000 UNIT/ML VIAL SQ SCH ×3 (06:31→21:17)
[2017-02-04] MEDS: 0.9 % Sodium Chloride 1,000 ML IVC SCH (06:31)
[2017-02-04] MEDS: Insulin LISPRO 300 UNITS/3 ML VIAL SQ SCH ×4 (08:58→21:18)
[2017-02-04] MEDS: Cyanocobalamin (B-12) 1,000 MCG TABLET PO SCH (09:13)
[2017-02-04] MEDS: Isosorbide MONOnitrate (24 HR) 60 MG TAB.ER.24H PO SCH (09:13)
[2017-02-04] MEDS: Ranolazine 500 MG TAB.ER.12H PO SCH ×2 (09:13→21:17)
[2017-02-04] MEDS: Aspirin 81 MG TAB.CHEW PO SCH (09:14)
[2017-02-04] MEDS: Insulin DETEMIR 100 UNIT/ML X5UNITS SQ SCH ×2 (09:14→21:17)
--- NOTE | 2017-02-04 09:34 | Internal Med Progress Note ---
<Camille Butler - Last Filed: 02/04/17 17:02> Date of Encounter: 02/04/17 Time of Encounter: 09:32 - Assessment and plan (1) Unstable angina Current Visit: Yes Status: Acute Assessment and plan: cardiology following pt to have heart catheterization tomorrow (2) Chest pain Current Visit: Yes Status: Acute Assessment and plan: pt presented with sharp stabbing chest pain which radiates to his back, high risk pt, he has known CAD current smoker, has DM, HTN, >[address] segment change trop 0.02, 0.01 BNP 143 cardiology consulted abdominal [place] Qualifiers: Chest pain type: unspecified Qualified Code(s): R07.9 - Chest pain, unspecified (3) Diabetes mellitus Current Visit: Yes Status: Chronic Assessment and plan: monitor glucose sliding scale Qualifiers: Diabetes mellitus type: type 2 Diabetes mellitus complication status: with unspecified complications Diabetes mellitus predatory animal exterminator insulin use: without predatory animal exterminator use Qualified Code(s): E11.8 - Type 2 diabetes mellitus with unspecified complications (4) Hypertension Current Visit: Yes Status: Chronic Assessment and plan: uncontrolled 165/95 Qualifiers: Hypertension type: essential hypertension Qualified Code(s): I10 - Essential (primary) hypertension (5) Current every day smoker Current Visit: Yes Status: Chronic Assessment and plan: nicotine patch prn cessation counseling (6) CAD (coronary artery disease) Current Visit: Yes Status: Chronic Assessment and plan: known CAD with previous stent placement x5, last stenting done in 2011 Qualifiers: Coronary Disease-Associated Artery/Lesion type: unspecified vessel or lesion type [place] vs. transplanted heart: [place] heart Associated angina: with stable angina Qualified Code(s): I25.118 - Atherosclerotic heart disease of [place] coronary artery with other forms of angina pectoris - Subjective Interval history: 71 yo M presented last night with chestpain, pt states he had one episode of chest pain with a palpitation while at rest overnight. Pt states it last 2-3 secondas and resolved itself, seems to radiate to his back. Pt states he does have some chronic back pain, but back pain is made worse with palpitation and chestpain. Denies shortness of breath, cough, diaphoresis, LE edema. - Constitutional Vitals: Temp Pulse Resp BP Pulse Ox 98 F 73 15 165/97 98 02/04/17 07:00 02/04/17 07:00 02/04/17 07:00 02/04/17 07:00 02/04/17 07:00 General appearance: Present: cooperative, A&O X 3, pleasant, no acute distress, obese - Head Head exam: Present: atraumatic, normocephalic - Eye Eye exam: Present: PERRL, conjuntiva pink, sclera anicteric Pupils: Present: PERRL - Neck Neck exam general surgery: Present: supple, trachea midline. Absent: lymphadenopathy - Respiratory Respiratory exam: Present: CTAB. Absent: accessory muscle use, rales, rhonchi, wheezes - Cardiovascular Cardiovascular exam: Present: RRR, +S1, +S2. Absent: diastolic murmur, gallop, rubs, systolic murmur - GI/Abdominal GI/Abdominal exam: Present: normal bowel sounds, soft, no peritoneal signs. Absent: distended, tenderness - Extremities Exam Extremities exam: Present: warm, radial pulses palpable and symetrical. Absent : calf tenderness, cyanotic, pedal edema - Neurological Exam Neurological exam: Present: CN II-XII intact, oriented X3, no focal deficits. Absent: pronater drift, facial droop, speech deficit - Skin Skin exam: Present: dry, intact Internal Medicine: Result - Labs CBC & Chem 7: 02/04/17 00:58 02/04/17 00:58 Labs: Short CBC 02/04/17 Range/Units 00:58 WBC 8.9 (4.3-11.1) K/mcL Hgb 13.7 (12.9-16.9) g/dL Hct 38.9 (37.5-50.1) % Plt Count 292 (140-400) K/mcL Neutrophils # 3.6 (1.6-8.9) K/mcL BMP 02/04/17 00:58 Sodium 140 Potassium 3.8 Chloride 109 Carbon Dioxide 25 BUN 12 Creatinine 1.31 H Glucose 131 H Calcium 8.6 Cardiac Enzymes 02/04/17 02/04/17 Range/Units 00:58 06:09 Troponin I 0.01 0.01 (0-0.03) ng/mL Liver Function 02/04/17 Range/Units 00:58 Total Bilirubin 0.5 (0.2-1.2) mg/dL AST 12 (5-34) Units/L ALT 10 (0-55) Units/L Alkaline Phosphatase 79 (38-126) Units/L Albumin 3.0 L (3.5-5.0) g/dL - ABG Interpretation ABG results: PT/INR, D-dimer PT 11.7 Seconds (9.4-12.1) 02/03/17 17:28 Consult Discharge Plan - Plan Referrals: Danny Parks DO [Primary Care Provider] - <Marcelino Nowak - Last Filed: 02/04/17 17:23> Date of Encounter: 02/04/17 - Assessment and plan (1) Unstable angina Current Visit: Yes Status: Acute (2) CAD (coronary artery disease) Current Visit: Yes Status: Chronic Qualifiers: Coronary Disease-Associated Artery/Lesion type: unspecified vessel or lesion type [place] vs. transplanted heart: [place] heart Associated angina: with stable angina Qualified Code(s): I25.118 - Atherosclerotic heart disease of [place] coronary artery with other forms of angina pectoris (3) Diabetes mellitus Current Visit: Yes Status: Chronic Qualifiers: Diabetes mellitus type: type 2 Diabetes mellitus complication status: with unspecified complications Diabetes mellitus longterm insulin use: without predatory animal exterminator use Qualified Code(s): E11.8 - Type 2 diabetes mellitus with unspecified complications (4) Hypertension Current Visit: Yes Status: Chronic Qualifiers: Hypertension type: essential hypertension Qualified Code(s): I10 - Essential (primary) hypertension (5) Hyperlipidemia Current Visit: Yes Status: Chronic Qualifiers: Hyperlipidemia type: mixed hyperlipidemia Qualified Code(s): E78.2 - Mixed hyperlipidemia (6) Current every day smoker Current Visit: Yes Status: Chronic - Constitutional Vitals: Temp Pulse Resp BP Pulse Ox 98.1 F 54 17 127/78 98 02/04/17 15:00 02/04/17 15:00 02/04/17 15:00 02/04/17 15:00 02/04/17 15:00 Internal Medicine: Result - Labs CBC & Chem 7: 02/04/17 00:58 02/04/17 00:58 Labs: Short CBC 02/04/17 Range/Units 00:58 WBC 8.9 (4.3-11.1) K/mcL Hgb 13.7 (12.9-16.9) g/dL Hct 38.9 (37.5-50.1) % Plt Count 292 (140-400) K/mcL Neutrophils # 3.6 (1.6-8.9) K/mcL BMP 02/04/17 00:58 Sodium 140 Potassium 3.8 Chloride 109 Carbon Dioxide 25 BUN 12 Creatinine 1.31 H Glucose 131 H Calcium 8.6 Cardiac Enzymes 02/04/17 02/04/17 Range/Units 00:58 06:09 Troponin I 0.01 0.01 (0-0.03) ng/mL Liver Function 02/04/17 Range/Units 00:58 Total Bilirubin 0.5 (0.2-1.2) mg/dL AST 12 (5-34) Units/L ALT 10 (0-55) Units/L Alkaline Phosphatase 79 (38-126) Units/L Albumin 3.0 L (3.5-5.0) g/dL - ABG Interpretation ABG results: PT/INR, D-dimer PT 11.7 Seconds (9.4-12.1) 02/03/17 17:28 - Attending Attestation I examined this patient and my medical decision-making was reviewed with the Resident Physician on 02/04/17. I agree with the documented findings, disposition and treatment plan as described except to the extent set forth below. Mr. Cowan is currently in observation for chest pain. Mr. Cowan is feeling OK at this time. His is concerned that this is recurrent cardiac disease. He had recent work up that was negative. Exam Alert. Comfortable Heart reg No wheeze I/P 1 Chest pain Cath tomorrow Further diagnoses and plan as above.
--- NOTE | 2017-02-04 11:21 | Electrocardiograph Report ---
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
--- NOTE | 2017-02-04 13:20 | Cardiology Consult Note ---
Date of Encounter: 02/04/17 Time of Encounter: 13:16 Assessment and Plan (1) Chest pain Current Visit: Yes Status: Acute C/o Chest pain similar to previous [place]. Troponin negative x 3. EKG -NSR with non-specific T wave changes similair to previous [place]. New inferior Q waves. Stress test in October negative for ischemia. Medical management recommended at that time. Imdur and ranexa increased. . Recommend [facility] for persistent chest pain despite medical therapy. Indications , risk, benefit, and alternatives discussed. Qualifiers: Chest pain type: unspecified Qualified Code(s): R07.9 - Chest pain, unspecified (2) Hypertension Current Visit: Yes Status: Chronic Uncontrolled hypertension. Start norvasc. C/o headaches with lisinopril. Low sodium diet. Qualifiers: Hypertension type: essential hypertension Qualified Code(s): I10 - Essential (primary) hypertension (3) CAD (coronary artery disease) Current Visit: Yes Status: Chronic H/o of [place] in 2014 and multiple PCI. Known obstructive small vessel CAD. Continue asa, statin, bb, imdur, and Ranexa. HR in the 40-50's noted. Decrease metoprolol. Qualifiers: Coronary Disease-Associated Artery/Lesion type: unspecified vessel or lesion type [place] vs. transplanted heart: [place] heart Associated angina: with stable angina Qualified Code(s): I25.118 - Atherosclerotic heart disease of [place] coronary artery with other forms of angina pectoris Discussion w patient/family: The assessment and plan as outlined above was discussed with the patient and/or family members who expressed understanding and agreement. All questions were answered. Thank you for involving us in the care of your patient. Please call with any questions. History of Present Illness Consult date: 02/04/17 Requesting physician: Markell Carrera Consult reason: Recurrent chest pain Chief complaint: Chest pain History of present illness: Mr. Cowan is a 71 year old male with a relevant past medical history of CAD, s/p [place] and multiple interventions, HTN, hyperlipidemia, DM, nicotine dependence, PVD. He presented to the hospital with chest pain associated with palpitations and fatigue over the past two days. His chest pain occurred with exertion and at rest. He underwent a stress test 11/03/16 for chest pain. Pharmacologic stress test was negative for ischemia. There was evidence of previous infarct in the basal and mid inferior and inferior lateral wall. Initial workup this admission reveals negative troponin, EKG shows bradycardia, HR 51 bpm, and non- specific EKG changes. BNP was 141. Previous cardiac testing: -Last cath 12/14/14 with LVEF 45%, 20% stenosis mid LAD, very distal LAD small 70 % stenosis. Previous stent diagonal 1 with 100% in-stent stenosis that was not intervened on (small vessel), Mid circumflex stent patent, 70% stenosis 1st OM ( small vessel) the lesion had HEATHER flow 3. 80% in-stent restenosis in mid RCA and occluded distal RCA. PDA has collaterals which feed from left to right. -Echocardiogram 11/03/16 with LVEF 45-50%, mild global to low normal LV systollic function, evidence of moderate diastolic dysfunction of left ventricle, moderate concentric hypertrophy of left ventricle, mild mitral regurgitation, no pulmonary hypertension, all wall segments with normal motion. -Stress test 11/03/16 with perfusion imaging negative for ischemia, basal and mid inferior and inferolateral wall infarct. gated EF 46%, LV mildly dilated. Infarct also noted on stress 04/25/2014. Past Med Surg Social Fam HX - Past Medical History Medical history: coronary artery disease, diabetes, hyperlipidemia, hypertension , myocardial infarction Psychiatric history: anxiety, depression - Past Surgical History Surgical History: angioplasty/stent - Social History Smoking Status: Current every day smoker Packs per day: 1-5 cigars daily Smokeless Tobacco Status: No Alcohol use: none Drug use: none - Family History Mother Race: Family Member Ethnicity: Non- Living Status: Age at : 70 Cause of : CHF Hx Family Cardiac Disorders: Yes (CHF) Hx Family Endocrine Disorder: Yes (DM) Father Race: Family Member Ethnicity: Non- Living Status: Age at : 76 Cause of : Prostate cancer Hx Family Cardiac Disorders: Yes (HD) Hx Family Endocrine Disorder: Yes (DM) Brother Race: Family Member Ethnicity: Non- Living Status: Age at : 41 Cause of : CHF Hx Family Cardiac Disorders: Yes (CHF) Medications and Allergies Cyanocobalamin (Vitamin B-12) [Vitamin B-12] 1,000 mcg PO DAILY 11/02/16 [ History] Insulin Glargine,Hum.rec.anlog [Lantus Solostar] 30 unit SQ BID 11/02/16 [ History] Nitroglycerin [Nitrostat] 0.4 mg SL AD PRN 11/02/16 [History] Paroxetine HCl [Paxil] 5 mg PO DAILY 11/02/16 [History] Prasugrel [Effient] 10 mg PO DAILY 11/02/16 [History] Simvastatin [Zocor] 40 mg PO HS 11/02/16 [History] Aspirin 81 mg PO DAILY #30 tab.chew 11/04/16 [Rx] Isosorbide MONOnitrate (24 HR) [Imdur] 60 mg PO DAILY #30 tab.er.24h 11/04/16 [ Rx] Metoprolol [Lopressor] 25 mg PO BID #60 tablet 11/04/16 [Rx] Ranolazine [Ranexa] 1,000 mg PO BID #60 tab.er.12h 11/04/16 [Rx] Allergies glimepiride Adverse Reaction (Verified 11/02/16 16:19) Diarrhea metformin Adverse Reaction (Verified 11/02/16 16:19) Diarrhea All Systems Review: A 10-system review of systems was performed and is negative for pertinent findings except as documented above in the HPI. Physical Examination Vital Signs Temp Pulse Resp BP Pulse Ox 02/04/17 08:00 98 02/04/17 07:00 98 F 73 15 165/97 98 02/04/17 03:48 63 17 148/79 96 02/03/17 23:15 97 02/03/17 22:36 98.3 F 83 17 153/93 96 02/03/17 21:20 51 18 163/95 97 02/03/17 20:25 18 158/91 02/03/17 20:09 50 16 153/95 95 02/03/17 19:39 50 16 157/92 97 02/03/17 18:46 49 18 150/90 98 02/03/17 18:02 49 16 147/92 96 02/03/17 17:23 49 18 143/87 97 02/03/17 16:40 97.7 F 51 18 154/83 98 Intake and Output 02/03/17 02/04/17 02/04/17 23:59 07:59 15:59 Intake Total 1000 / 1000 120 / 120 Output Total 700 / 700 Balance 300 / 300 120 / 120 Intake: IV Fluids 1000 / 1000 0.9 % Sodium Chloride 1, 1000 / 1000 000 ML @ 100 mls/hr IVC . Q10H HERLINDA Rx#:[id number] Oral 120 / 120 Output: Urine 700 / 700 Other: Meal Breakfast Percent of Meal Consumed 100% Weight 107.501 kg Blood Glucose* 89 121 General: Conversant, No Apparent Distress, Other (yawning frequently) HEENT: Atraumatic, Normocephaly, Mucus Membranes Moist Neck: No JVD, Normal carotid pulses Cardiac: Reg Rate and Rhythm, Normal S1 and S2, No Murmur, Other (SB) Lungs: Normal Breath Sounds, No Wheeze, Rales, Rhonchi Neuro: Alert and responsive, No focal deficits noted Abdomen: Soft, Non-Tender Skin: No rashes noted on visualized skin Musculoskeletal: No Chest Wall Tenderness Extremities: No Clubbing, No Cyanosis, No Edema, Normal Pulses Results 02/04/17 00:58 02/04/17 00:58 Lab Results 02/04/17 02/04/17 02/04/17 00:58 00:58 00:58 WBC 8.9 Hgb 13.7 Hct 38.9 Plt Count 292 Sodium 140 Potassium 3.8 Chloride 109 Carbon Dioxide 25 BUN 12 Creatinine 1.31 H Glucose 131 H Calcium 8.6 Magnesium 1.7 Total Bilirubin 0.5 AST 12 ALT 10 Alkaline Phosphatase 79 Troponin I 0.01 B-Natriuretic Peptide 02/04/17 02/04/17 00:58 06:09 WBC Hgb Hct Plt Count Sodium Potassium Chloride Carbon Dioxide BUN Creatinine Glucose Calcium Magnesium Total Bilirubin AST ALT Alkaline Phosphatase Troponin I 0.01 B-Natriuretic Peptide 143 H - Imaging and Cardiology Stress Test: report reviewed Echo: report reviewed Cardiac cath: report reviewed - EKG Interpretation EKG results cardiology: personally reviewed (Sr with non-specific T wave changes Q waves in the inferior leads noted.) Consult Discharge Plan - Plan Referrals: Danny Parks DO [Primary Care Provider] -
[2017-02-04] MEDS: amLODIPine 5 MG TABLET PO SCH (14:34)
[2017-02-05] MEDS: *HR* Heparin 5,000 UNIT/ML VIAL SQ SCH ×3 (06:18→21:00)
[2017-02-05] MEDS: Aspirin 81 MG TAB.CHEW PO SCH (09:06)
[2017-02-05] MEDS: Ranolazine 500 MG TAB.ER.12H PO SCH ×2 (09:06→21:00)
[2017-02-05] MEDS: Cyanocobalamin (B-12) 1,000 MCG TABLET PO SCH (09:06)
[2017-02-05] MEDS: Insulin LISPRO 300 UNITS/3 ML VIAL SQ SCH ×3 (09:06→17:31)
[2017-02-05] MEDS: Isosorbide MONOnitrate (24 HR) 60 MG TAB.ER.24H PO SCH (09:06)
[2017-02-05] MEDS: Insulin DETEMIR 100 UNIT/ML X5UNITS SQ SCH ×2 (09:07→21:05)
[2017-02-05] MEDS: amLODIPine 5 MG TABLET PO SCH (09:08)
[2017-02-05 10:04] LABS: BUN/Creatinine Ratio 9 (6-26); Blood Urea Nitrogen 10 mg/dL (8-26); Carbon Dioxide 24 mEq/L (19-29); Chloride 107 mEq/L (98-109); Glucose 69 mg/dL (70-99); Osmolality,Calculated 283 (280-300); Potassium 3.7 mEq/L (3.5-4.5); Sodium 138 mEq/L (136-145); eGFR For African Americans > 60 (> 60); eGFR For Non-African Americans > 60 (> 60)
--- NOTE | 2017-02-05 10:14 | Internal Med Progress Note ---
<Camille Butler - Last Filed: 02/05/17 10:11> Date of Encounter: 02/05/17 Time of Encounter: 10:12 - Assessment and plan (1) Unstable angina Current Visit: Yes Status: Acute Assessment and plan: cardiology following plan for [facility] today continue metoprolol, amlodipine, atorvastatin (2) Chest pain Current Visit: Yes Status: Acute Assessment and plan: pt presented with sharp stabbing chest pain which radiates to his back, high risk pt, he has known CAD current smoker, has DM, HTN, >[address] segment change trop 0.02, 0.01 BNP 143 Qualifiers: Chest pain type: unspecified Qualified Code(s): R07.9 - Chest pain, unspecified (3) Diabetes mellitus Current Visit: Yes Status: Chronic Assessment and plan: NPO for cath cardiac diet after procedure monitor glucose sliding scale Qualifiers: Diabetes mellitus type: type 2 Diabetes mellitus complication status: with unspecified complications Diabetes mellitus intermission coordinator insulin use: without usp use Qualified Code(s): E11.8 - Type 2 diabetes mellitus with unspecified complications (4) Hypertension Current Visit: Yes Status: Chronic Qualifiers: Hypertension type: essential hypertension Qualified Code(s): I10 - Essential (primary) hypertension (5) Current every day smoker Current Visit: Yes Status: Chronic Assessment and plan: nicotine patch prn cessation counseling (6) CAD (coronary artery disease) Current Visit: Yes Status: Chronic Assessment and plan: known CAD with previous stent placement x5, last stenting done in 2011 Qualifiers: Coronary Disease-Associated Artery/Lesion type: unspecified vessel or lesion type [place] vs. transplanted heart: [place] heart Associated angina: with stable angina Qualified Code(s): I25.118 - Atherosclerotic heart disease of [place] coronary artery with other forms of angina pectoris - Time Spent With Patient less than 15 minutes - Subjective Interval history: 71 yo M presented last night with chestpain, pt states he did not have any episodes of chest pain or palpitations overnight. He states that his chronic back pain is worse due to the hospital bed being uncomfortable but only takes Tylenol at home and does not want any pain medications at this time. Denies shortness of breath, cough, diaphoresis, LE edema. - Constitutional Vitals: Temp Pulse Resp BP Pulse Ox 97.6 F 56 17 149/88 98 02/05/17 06:59 02/05/17 06:59 02/05/17 06:59 02/05/17 06:59 02/05/17 06:59 General appearance: Present: cooperative, A&O X 3, pleasant, no acute distress, obese - Head Head exam: Present: atraumatic, normocephalic - Eye Eye exam: Present: PERRL, conjuntiva pink, sclera anicteric Pupils: Present: PERRL - Neck Neck exam general surgery: Present: supple, trachea midline. Absent: lymphadenopathy - Respiratory Respiratory exam: Present: CTAB. Absent: accessory muscle use, rales, rhonchi, wheezes - Cardiovascular Cardiovascular exam: Present: RRR, +S1, +S2. Absent: diastolic murmur, gallop, rubs, systolic murmur - GI/Abdominal GI/Abdominal exam: Present: normal bowel sounds, soft, no peritoneal signs. Absent: distended, tenderness - Extremities Exam Extremities exam: Present: normal capillary refill, warm, radial pulses palpable and symetrical. Absent: calf tenderness, cyanotic, pedal edema, tenderness - Neurological Exam Neurological exam: Present: CN II-XII intact, oriented X3, no focal deficits. Absent: pronater drift, facial droop, speech deficit - Skin Skin exam: Present: dry, intact Internal Medicine: Result - Labs CBC & Chem 7: 02/04/17 00:58 02/05/17 09:22 Labs: BMP 02/05/17 09:22 Sodium 138 Potassium 3.7 Chloride 107 Carbon Dioxide 24 BUN 10 Creatinine 1.06 Glucose 69 L Calcium 9.0 - ABG Interpretation ABG results: PT/INR, D-dimer PT 11.7 Seconds (9.4-12.1) 02/03/17 17:28 Consult Discharge Plan - Plan Referrals: Danny Parks DO [Primary Care Provider] - 02/13/17 1:00 pm <Marcelino Nowak - Last Filed: 02/05/17 18:30> Date of Encounter: 02/05/17 - Assessment and plan (1) Unstable angina Current Visit: Yes Status: Acute (2) CAD (coronary artery disease) Current Visit: Yes Status: Chronic Qualifiers: Coronary Disease-Associated Artery/Lesion type: unspecified vessel or lesion type [place] vs. transplanted heart: [place] heart Associated angina: with stable angina Qualified Code(s): I25.118 - Atherosclerotic heart disease of [place] coronary artery with other forms of angina pectoris (3) Diabetes mellitus Current Visit: Yes Status: Chronic Qualifiers: Diabetes mellitus type: type 2 Diabetes mellitus complication status: with unspecified complications Diabetes mellitus intermission coordinator insulin use: without usp use Qualified Code(s): E11.8 - Type 2 diabetes mellitus with unspecified complications (4) Hypertension Current Visit: Yes Status: Chronic Qualifiers: Hypertension type: essential hypertension Qualified Code(s): I10 - Essential (primary) hypertension (5) Hyperlipidemia Current Visit: Yes Status: Chronic Qualifiers: Hyperlipidemia type: mixed hyperlipidemia Qualified Code(s): E78.2 - Mixed hyperlipidemia (6) Current every day smoker Current Visit: Yes Status: Chronic - Time Spent With Patient Greater than 30min - Constitutional Vitals: Temp Pulse Resp BP Pulse Ox 97.6 F 53 17 149/94 97 02/05/17 06:59 02/05/17 16:40 02/05/17 16:40 02/05/17 16:40 02/05/17 16:40 Internal Medicine: Result - Labs CBC & Chem 7: 02/04/17 00:58 02/05/17 09:22 Labs: BMP 02/05/17 09:22 Sodium 138 Potassium 3.7 Chloride 107 Carbon Dioxide 24 BUN 10 Creatinine 1.06 Glucose 69 L Calcium 9.0 - ABG Interpretation ABG results: PT/INR, D-dimer PT 11.7 Seconds (9.4-12.1) 02/03/17 17:28 - Attending Attestation I examined this patient and my medical decision-making was reviewed with the Resident Physician on 02/05/17. I agree with the documented findings, disposition and treatment plan as described except to the extent set forth below. Mr. Cowan is currently in observation for acute chest pain. Mr. Cowan had cath and 2 stents placed today. Otherwise his only complaint was hunger. Exam Alert. Comfortable Heart reg No wheeze I/P 1. [place] - 2. CAD s/p stent Further diagnoses and plan as above. Anticipate d/c tomorrow.
[2017-02-05] MEDS ORDERED: D5% in 0.45% NACL 1,000 ML IVC SCH (11:15)
--- NOTE | 2017-02-05 11:29 | Pre-Sedation Evaluation ---
Pre-sedation evaluation - Pre-sedation checklist Date of procedure: 02/05/17 Procedure: LHC Recent Vitals: Last Vital Signs Temp 97.6 F 02/05/17 06:59 Pulse 56 02/05/17 06:59 Resp 17 02/05/17 06:59 BP 149/88 02/05/17 06:59 Pulse Ox 98 02/05/17 06:59 H&P (including ROS) documented in medical record: Yes Previous reaction to sedatives/anesthetics: No Dietary Status: NPO after Midnight ASA Classification *see protocol: CLASS II-Mild systemic disease Plan of Care: Pt appropriate candidate for procedure/moderate/conscious sedation , Risks/benefits of procedure/sedation discussed w/ patient/family
--- NOTE | 2017-02-05 12:33 | Event Note ---
Date of Encounter: 02/05/17 Time of Encounter: 10:00 - Cardiology Event Note Patient awaiting C this afternoon for persistent chest pain despite recent negative stress test and medical management. He denies questions. No recurrent pain overnight. Continues to have significant fatigue. HR in the mid 50's. Avg HR 52 over last 12 hours. B/p improved with addition of amlodipine.
[2017-02-05] MEDS ORDERED: *HR* Midazolam HCl 2 MG/2 ML VIAL ONE (14:13)
[2017-02-05] MEDS ORDERED: *HR* FentaNYL (PF) 100 MCG/2 ML VIAL ONE (14:14)
[2017-02-05] MEDS ORDERED: *HR* Heparin 10,000 UNIT/10 ML VIAL ONE (14:14)
[2017-02-05] MEDS ORDERED: Nitroglycerin 1,000 MCG/10 ML VIAL IV ONE (14:14)
[2017-02-05] MEDS ORDERED: 0.9 % Sodium Chloride 1,000 ML ONE ×2 (14:14→14:15)
[2017-02-05] MEDS ORDERED: Heparin 1,000 UNITS/500 mL NS 500 ML ONE (14:14)
[2017-02-05] MEDS ORDERED: Verapamil 5 MG/2 ML VIAL ONE (14:15)
[2017-02-05] MEDS ORDERED: Tirofiban 12.5 MG/250ML 0 MG/0 ML BAG ONE (15:13)
[2017-02-05] MEDS ORDERED: Nicotine 21 MG PATCH.TD24 TD PRN (15:41)
--- NOTE | 2017-02-05 16:15 | Invasive Diagnostic Lab Proc ---
Name: Eliu Cowan Date of Study: 02/05/2017 Date: 1945 Ht: 72.8in Medical Record#: [id number] Age: 71 Wt: 235.89lb Gender: Male BSA: 2.3 Order #: [id number] BMI: 31.26 Physicians Procedure Physician: Octaviano Merchant MD, [facility] Referring MD: Referring MD: Indications Indication Unstable Angina Procedures Performed Procedure L HRT ARTERY/VENTRICLE ANGIO Pre-Procedure Checklist Informed consent is complete signed and on chart. H\\T\\P is on chart. ID band is on and ID verified with patient. Patient NPO for procedure The procedure was described for the patient and questions were answered. Blood Pressure: 149/88 ECG is on chart. Rhythm: NSR Plan of Care Patient will tolerate the procedure without complications. Adequate level of comfort will be maintained. Hemodynamics will remain stable Patient will recover from procedure without complications. Respiratory function will be maintained. Cardiac rhythm will remain stable. Patient temperature will be maintained. Patient and/or family have verbalized understanding of the procedure. Patient Education Chief Complaint/Reason for Test: Cardiac Cath Developmental Category: Geriatric (65+ years) Developmentally Appropriate for Age: Yes Learning Barriers: None Education Needs: Procedure Education Method: Verbal Information Taught: Cardiac Cath Educational Evaluation: Able to repeat information Intravenous Access Time IV Size Location DC'd Fluid/Drip Rate Units RN 02:48 PM 18g 1 1/4" Patent On Arrival Rt Wrist Yes 02:48 PM Started with 20g 1 1/4" Lt Antecubital 0.9NaCl 25 ml/hr Vivi Phillips RN Allergies metformin glimepiride Vital Signs Time BP (mmHg) HR (bpm) O2 Sat. RR (bpm) LOC 149 / 88 56 98 % 17 02:50 PM / % 5 = Fully awake and oriented or at pre-proc level 02:50 PM / % 4 = Oriented but drowsy 03:05 PM / % 4 = Oriented but drowsy 03:20 PM / % 4 = Oriented but drowsy 03:46 PM / % 4 = Oriented but drowsy 02:51 PM 171 / 90 58 98 % 12 02:56 PM 150 / 69 58 96 % 16 03:01 PM 137 / 80 57 96 % 16 03:06 PM 141 / 68 59 95 % 20 03:11 PM 137 / 73 59 96 % 16 03:16 PM 147 / 61 57 95 % 14 03:21 PM 139 / 71 57 93 % 15 03:26 PM 112 / 60 59 92 % 14 03:31 PM 132 / 67 58 96 % 22 03:35 PM 150 / 71 57 96 % 16 03:36 PM 132 / 72 58 96 % 15 03:42 PM 145 / 80 57 97 % 12 03:46 PM 152 / 71 55 96 % 15 03:51 PM 147 / 76 % Procedural Medications Time Medication Dose Units Method Given By 02:51 PM Oxygen 2 L/min nasal cannula Lashawn Gallegos RN 02:51 PM Versed 2 mg Intravenous Jermaine Ram RN 02:51 PM Fentanyl 50 mcg Intravenous Lashawn Gallegos RN 03:04 PM Lidocaine 2% 0.5 ml Subcutaneous Octaviano Merchant MD, [facility] 03:44 PM Heparin 1000 units Intravenous Lashawn Gallegos RN 03:04 PM Heparin 4000 units Nitroglycerin 200 mcg Verapamil 2.5 mg Intraarterial Octaviano Merchant MD, [facility] ASA Classification: CLASS II- Mild systemic disease (i.e. well-controlled diabetes, hypertension, asthma, cigarette smoking) Curtis Score Preprocedure Postprocedure Activity 2- Moves 4 extremities sustained head lift Activity 2- Moves 4 extremities sustained head lift Circulation 2- SBP +/= 20 points of pre-anesthetic level Circulation 2- SBP +/= 20 points of pre-anesthetic level Consciousness 2- Awake and alert oriented x 3 Consciousness 2- Awake and alert oriented x 3 O2 Saturation 2- Able to maintain O2 satruation of 92% on room air O2 Saturation 2- Able to maintain O2 satruation of 92% on room air Respiratory 2- Able to deep breathe and cough well Respiratory 2- Able to deep breathe and cough well Total Score 10 Total Score 10 Contrast Agent: Isovue Diagnostic Contrast: 115 ml Total Contrast: 115 ml Fluoro Dose: 1081 mGy Activated Clotting Time Time Seconds to Clot 03:20 PM 303 Procedure Log Time Note Enter By 02:23 PM CathStat 02:40 PM Sign in performed according to hospital policy. [facility] 02:40 PM [facility] 02[facility] PM Physician arrived 14:48 [facility] 02:40 PM Zoë completed dspell 02:41 PM Procedure start 14:41 [facility] 02:49 PM Patient charges- Angio tray pack, Navilyst 3mm J, Pulse Oximetry and ACIST tubing and transducer :49 PM IV Supplies used: J loop Angio Cath. :49 PM Case Delayed No,inpatient dsp:50 PM Hair removed from procedure site in procedure lab using clippers. Rt wrist/rt groin prepped with Chloraprep by Vivi Phillips RN, then patient was draped. Skin intact. PM Time: 14:50 Patient comfortable and pain free: Yes [email or web address] PM Time: 14:50LOC: 5 = Fully awake and oriented or at pre-proc level dsp:50 PM Vitals capture started with the following parameters, Patient=Adult, Interval=5 min, Initial Erqpcwrz=506 mmHg, Deflation Rate=5 mmHg, Cuff placed on Left Leg 02:51 PM Time: 14:51 Oxygen on at 2 L/min per nasal cannula by Lashawn Gallegos RN jose alfredo 51 PM Time: 14:51 Versed 2 mg Intravenous Given by Jermaine Ram RN [facility]51 PM Time: 14:51 Fentanyl 50 mcg Intravenous [facility] PM HR=58 bpm, AUDC=293/90 mmhg, SpO2=98.0 %, Resp=12 B/min, Comment=sb 02:56 PM HR=58 bpm, ZXMU=112/69 mmhg, SpO2=96.0 %, Resp=16 B/min, Comment=sb 03:01 PM HR=57 bpm, FKZJ=978/80 mmhg, SpO2=96.0 %, Resp=16 B/min, Comment=sb 03:01 PM Zoë completed 03:02 PM Clinical Presentation: Unstable angina dsp 03:02 PM Time out performed according to hospital policy dsp 03:04 PM Time: 15:04 0.5 ml Lidocaine 2% to right radial Subcutaneous Given by Octaviano Merchant MD, [facility] dspjose alfredo 03:04 PM Time: 15:04 Patient given 4,000 units Heparin, 200 mcg Nitroglycerin, and 2.5 mg Verapamil Intraarterial by Octaviano Merchant MD, [facility] dspjose alfredo 03:04 PM Access obtained by percutaneous puncture. 6Fr 11cm Terumo Glidesheath sheath placed in right Radial artery. [id number] dspellman 03:04 PM 5Fr TIG catheter inserted over the wire DNC dspellman 03:05 PM Time: 14:50LOC: 4 = Oriented but drowsy dspellman 03:05 PM Time: 14:50 Patient comfortable and pain free: Yes dspellman 03:05 PM 0.035 150cm VSI Ortega-Torque wire [id number] dspellman 03:06 PM HR=59 bpm, IXFE=771/68 mmhg, SpO2=95.0 %, Resp=20 B/min, Comment=sb 03:06 PM Recorded Pressure: Ao, HR=62, Condition=Condition 1 (Aorta) Ao 108/76/90 03:07 PM RCA angiography performed in multiple views. dspellman 03:07 PM catheter repositioned to the LCA dspellman 03:07 PM Recorded Pressure: Ao, HR=60, Condition=Condition 1 (Aorta) Ao 110/73/90 03:08 PM LCA angiography performed in multiple views. dspellman 03:09 PM Catheter removed dspellman 03:09 PM Coronary Dominance: right dspellman 03:10 PM Lesion found in Mid LAD. Pre Stenosis: 40 Pre HEATHER Flow: dspellman 03:10 PM Lesion found in 1st Diagonal. Pre Stenosis: 80 Pre HEATHER Flow: dspellman 03:10 PM Lesion found in Mid Circumflex. Pre Stenosis: 20 Pre HEATHER Flow: dspellman 03:11 PM HR=59 bpm, XTOH=279/73 mmhg, SpO2=96.0 %, Resp=16 B/min, Comment=sb 03:13 PM Recorded Pressure: LV, HR=60, Condition=Condition 1 (Left Ventricle) LV 128/4/11 03:14 PM Catheter removed dspellman 03:14 PM 5Fr Pigtail catheter inserted over the wire DN dspellman 03:14 PM Catheter selectively placed in left ventricle dspellman 03:14 PM Recorded Pressure: LV, Ao, HR=59, Condition=Condition 1 (Left Ventricle) LV 145/4/18, (Aorta) Ao 147/70/101 03:14 PM Bolus angiogram of left Ventricle complete: 10 ml/sec for a total of 20 mls dspellman 03:15 PM Lesion found in Mid RCA. Pre Stenosis: 90 Pre HEATHER Flow: 3: Complete and Brisk Flow/Perfusion dspellman 03:15 PM Catheter removed dspellman 03:15 PM PCI Status Urgent dspellman 03:15 PM PCI Indication: PCI for high risk Non-STEMI or unstable angina dspell 03:16 PM Inflation device was opened. dspellman 03:16 PM HR=57 bpm, AGGL=999/61 mmhg, SpO2=95.0 %, Resp=14 B/min, Comment=sb 03:18 PM 6Fr IM Runway guide catheter was used to cannulate the PCI vessel successfully. reused? No dspellman 03:19 PM .014 Samurai 190cm guide wire across target lesion- successful. reused? No dspellman 03:19 PM 2.0 mm x 12 mm Emerge Monorail balloon across target lesion- successful. reused? No dspellman 03:20 PM At 15:20 the ACT was 303 seconds. dspell 03:20 PM Time: 15:05 Patient comfortable and pain free: Yes dspell 03:20 PM Time: 15:05LOC: 4 = Oriented but drowsy dspell 03:21 PM HR=57 bpm, GIQL=253/71 mmhg, SpO2=93.0 %, Resp=15 B/min, Comment=sb 03:21 PM Recorded Pressure: Ao, HR=60, Condition=Condition 1 (Aorta) Ao 124/79/99 03:22 PM Balloon inflated @ 14 dami for 28 seconds dspellman 03:24 PM Balloon inflated @ 8 dami for 10 seconds dspellman 03:24 PM Recorded Pressure: Ao, HR=60, Condition=Condition 1 (Aorta) Ao 106/69/85 03:25 PM Balloon catheter removed intact. dspell 03:26 PM HR=59 bpm, YTJJ=263/60 mmhg, SpO2=92.0 %, Resp=14 B/min, Comment=sb 03:26 PM 2.25mm x 16mm Synergy drug-eluting stent across target lesion- successful Lot #[id number] dspellman 03:28 PM 6Fr Guidezilla advanced dspellman 03:31 PM Stent deployed @ 18 dami for 30 seconds dspellman 03:31 PM HR=58 bpm, PDAJ=693/67 mmhg, SpO2=96.0 %, Resp=22 B/min, Comment=sb 03:32 PM Stent delivery system removed intact. dspellman 03:33 PM 2.25mm x 16mm Synergy drug-eluting stent across target lesion- successful Lot #[id number] dspellman 03:34 PM NIBP STAT measurement started. 03:34 PM Stent deployed @ 18 dami for 15 seconds dspellman 03:34 PM Recorded Pressure: Ao, HR=58, Condition=Condition 1 (Aorta) Ao 108/78/93 03:35 PM Stent delivery system removed intact. dspellman 03:35 PM HR=57 bpm, DRKI=786/71 mmhg, SpO2=96.0 %, Resp=16 B/min, Comment=sb 03:35 PM 2.25 mm x 12mm NC Emerge balloon across target lesion- successful. reused? No dspellman 03:36 PM Time: 15:20LOC: 4 = Oriented but drowsy dspellman 03:36 PM Time: 15:20 Patient comfortable and pain free: Yes dspellman 03:36 PM HR=58 bpm, TGGL=699/72 mmhg, SpO2=96.0 %, Resp=15 B/min, Comment=sb 03:38 PM Lesion found in Distal RCA. Pre Stenosis: 90 Pre HEATHER Flow: 3: Complete and Brisk Flow/Perfusion dspellman 03:38 PM Balloon inflated @ 14 dami for 14 seconds dspellman 03:39 PM Balloon inflated @ 24 dami for 30 seconds dspellman 03:41 PM Balloon catheter removed intact. dspellman 03:41 PM 2.5 mm x 12mm NC Trek Rx balloon across target lesion- successful. reused? No dspellman 03:42 PM HR=57 bpm, CFCO=389/80 mmhg, SpO2=97.0 %, Resp=12 B/min, Comment=sb 03:42 PM Lesion found in Proximal RCA. Pre Stenosis: 50 Pre HEATHER Flow: dspellman 03:44 PM Balloon inflated @ 20 dami for 40 seconds dspellman 03:45 PM Time: 15:44 Heparin 1000 units Intravenous Given by Lashawn Gallegos RN dspellman 03:45 PM Balloon inflated @ 24 dami for 20 seconds dspellman 03:46 PM Time: 15:45 Patient comfortable and pain free: Yes dspellman 03:46 PM Time: 15:46LOC: 4 = Oriented but drowsy dspellman 03:46 PM HR=55 bpm, BPSE=783/71 mmhg, SpO2=96.0 %, Resp=15 B/min, Comment=sb 03:49 PM Procedure completed at 15:49 dspellman 03:49 PM Sign out completed: Radiation Dose 1081 mGy Fluoro Time: 12.1 Isovue 370 - 200ml contrast 115 ml given by Octaviano Merchant MD, [facility]. Complications: NoneCardiac Rehab Consult needed: YesConfirmed administered medications: Yes dspellman 03:49 PM Isovue 370 - 200ml,2 Bottle(s) used. dspellman 03:49 PM Arterial sheath pulled, Vasc Band closure device used and was Successful S/N. dspellman 03:50 PM Post ECG Sinus Bradycardia dspellman 03:50 PM Post Blood Pressure 152/71 dspellman 03:50 PM 15:50 Post Pulses Rt Radial 1+ dspellman 03:50 PM Information taught Cardiac Cath, PCI, and Vasc Band dspellman 03:51 PM OUOF=318/76 mmhg, Comment=sb 03:53 PM Information taught Cardiac Cath and Vasc Band dspellman 03:53 PM Education needs Procedure, Plan of Care, and Responsibilities of Patient in Care dspellman 03:53 PM Learning barriers :None dspell 03:53 PM Education Methods Verbal dspellman 03:53 PM Education evaluation Able to repeat information dspellman 03:53 PM Site status No bleeding/hematoma - Rt Wrist as reported by Izabela Baptiste RT (R) at 15:53 dspellman 03:54 PM Plavix, Effient or Brilinta given No, patient had effient this am dspellman 03:54 PM Delay to floor No dspellman 03:54 PM Patient out of room: 15:54 dspellman 03:54 PM Family placed in consult room. dspellman 03:54 PM Complications: None dspellman 03:59 PM Lesion found in 1st Marginal. Pre Stenosis: 70 Pre HEATHER Flow: 04:01 PM Time: 15:46 Patient comfortable and pain free: Yes [facility] Complications Complication None None Hemodynamics Pressures Site Systolic/A Wave Diastolic/V Wave Mean AO 108 76 90 AO 110 73 90 LV 128 4 11 LV 145 4 18 AO 147 70 101 AO 124 79 99 AO 106 69 85 AO 108 78 93 Post Procedure Information Blood Pressure: 152/71 mmHg Rhythm: Sinus Bradycardia Post procedural instructions were given Closure Device Time Device Success/Fail 02/05/2017 3:49:00 PM Mechanical Compression Successful Site Checks Time Location Status Staff Sheath In? Note 03:53 PM Rt Wrist No bleeding/hematoma Izabela Baptiste RT (R) Pulses Time Site Pre-Procedure Post-Procedure Note 02/05/2017 8:05:00 AM Bilateral DP \\T\\ PT 2+ 02/05/2017 8:05:00 AM Bilateral radial 2+ 3:50:00 PM Rt Radial 1+ Updated by RT Hannah (R) on 02/05/2017 4:06:33 PM RT Hannah electronically signed on 02/05/2017 4:07:52 PM with status of Final
[2017-02-06] MEDS: Insulin LISPRO 300 UNITS/3 ML VIAL SQ SCH ×3 (01:19→11:38)
[2017-02-06] MEDS: *HR* Heparin 5,000 UNIT/ML VIAL SQ SCH (05:25)
--- NOTE | 2017-02-06 06:18 | Invasive Diagnostic Lab ---
Name: Eliu Cowan Date of Study: 02/05/2017 Date: 1945 Ht: 185.0 cm /72.8 in Medical Record#: [id number] Age: 71 Wt: 107. kg / 235.89 lb Account/Order#: [id number] Gender: Male BSA: 2.3 Order #: [id number] Fluoro Dose: 1081 mGy BMI: 31.26 Procedure Physician: Octaviano Merchant MD, [facility] Referring MD: Referring MD: Procedures Performed: LEFT HEART CATH Stent w/ PTCA Single Major Vessel - RCA Indications: Unstable Angina Impressions: There is severe one vessel coronary artery disease. There is mild LV Dysfunction EF 40-45% Patient had successful PTCA/Drug-Eluting Stent placement in the mid and distal RCA. Residual small vessel disease Recommendations: Optimal medical therapy of patient's disease. Aggressive risk factor modification. Patient being referred for cardiac rehab. History/Risk Factors: CAD Diabetes Hypertension Dyslipidemia Current/Recent Smoker Prior [place] Procedure Access obtained in the right Radial artery by percutaneous puncture Patient had successful PTCA/Drug-Eluting Stent placement in the mid and distal RCA. Complications: None, None Contrast: Isovue 115ml Closure Device: Mechanical Compression Hemodynamics: Pressures Site Systolic/ A Wave Diastolic/ V Wave End Diastolic/ Mean HR AO 108 76 90 62 AO 110 73 90 60 LV 128 4 11 60 LV 145 4 18 59 AO 147 70 101 59 AO 124 79 99 60 AO 106 69 85 60 AO 108 78 93 58 LV Ventriculography Ejection Method: LV Gram Ejection Fraction: 40-45% Wall Motion: RANGEL Anterobasal Normal Anterolateral Normal Apical: Normal Inferoapical Mild Hypokinesis Inferobasal Moderate Hypokinesis Coronary Dominance: right Lesion Findings/Interventions * Left Main Coronary Artery The LMCA is angiographically free of disease. * Left Anterior Descending There is a 40% stenosis in the Mid LAD. Proximal LAD 20% stenosis. There is a 80% stenosis in the distal LAD near the apex * Circumflex There is a 20% stenosis in the Mid Circumflex. There is a patent stent from a previous procedure There is a 70% stenosis in the mid 1st Marginal.The OM1 branch is tortuous and jailed in by previous circ stent. Vessel is small in size. Left to left collateral noted. * Right Coronary Artery There is a 50% instent stenosis in the Proximal RCA. There is a 16 mm long, 90% stenosis in the Mid RCA. The lesion has a HEATHER flow of 3. An intervention was performed on the Mid RCA with a final stenosis of 0%. There were no lesion complications. The final HEATHER flow was 3. There is a 16 mm long, 90% stenosis in the Distal RCA. The lesion has a HEATHER flow of 3. An intervention was performed on the Distal RCA with a final stenosis of 0%. There were no lesion complications. The final HEATHER flow was 3. Interventional Device(s) Vessel Segment Type Name Diameter (mm) Length (mm) Mid RCA Balloon Emerge Monorail 2 12 Mid RCA Drug Eluting Stent Synergy 2.25 16 Distal RCA Balloon Emerge Monorail 2 12 Distal RCA Drug Eluting Stent Synergy 2.25 16 Distal RCA Balloon NC Emerge 2.25 12 Distal RCA Balloon NC Trek Rx 2.5 12 Updated by Izabela Baptiste RT (R) on 02/05/2017 4:05:39 PM Octaviano Merchant MD, [facility] electronically signed on 02/06/2017 6:13:17 AM with status of Final
--- NOTE | 2017-02-06 08:28 | Discharge Summary ---
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 transplanted heart: [place] heart Associated angina: with stable angina Qualified Code(s): I25.118 - Atherosclerotic heart disease of [place] coronary artery with other forms of angina pectoris - Discharge Medications Prescriptions: amLODIPine [Norvasc] 5 mg PO DAILY #30 tablet Atorvastatin [Lipitor] 40 mg PO HS #30 tablet Metoprolol [Lopressor] 12.5 mg PO BID #60 tablet Nicotine Patch [Nicoderm] 21 mg TD DAILY PRN #30 patch.td24 PRN Reason: Nicotine Cravings Home Medications: Cyanocobalamin (Vitamin B-12) [Vitamin B-12] 1,000 mcg PO DAILY 11/02/16 [ History] Insulin Glargine,Hum.rec.anlog [Lantus Solostar] 30 unit SQ BID 11/02/16 [ History] Nitroglycerin [Nitrostat] 0.4 mg SL AD PRN 11/02/16 [History] Paroxetine HCl [Paxil] 5 mg PO DAILY 11/02/16 [History] Prasugrel [Effient] 10 mg PO DAILY 11/02/16 [History] Aspirin 81 mg PO DAILY #30 tab.chew 11/04/16 [Rx] Isosorbide MONOnitrate (24 HR) [Imdur] 60 mg PO DAILY #30 tab.er.24h 11/04/16 [ Rx] Ranolazine [Ranexa] 1,000 mg PO BID #60 tab.er.12h 11/04/16 [Rx] Atorvastatin [Lipitor] 40 mg PO HS #30 tablet 02/06/17 [Rx] Metoprolol [Lopressor] 12.5 mg PO BID #60 tablet 02/06/17 [Rx] Nicotine Patch [Nicoderm] 21 mg TD DAILY PRN #30 patch.td24 02/06/17 [Rx] amLODIPine [Norvasc] 5 mg PO DAILY #30 tablet 02/06/17 [Rx] Allergies/Adverse Reactions: Allergies glimepiride Adverse Reaction (Verified 11/02/16 16:19) Diarrhea metformin Adverse Reaction (Verified 11/02/16 16:19) Diarrhea Procedures/tests Complete & Pending: Procedures Performed prior 72 hours Category Date Time Status CL Cardiac Catheterization [CL] Routine Program Director/Traffic Director 02/04/17 14:50 Completed Date of admission: 02/03/17 20:11 Primary care physician: Danny Parks DO Consults: 02/04/17 10:06 Consult to Cardiology [CONS] Routine Comment: Consulting Provider: Cardiology Kiarra Reason for Consult: CP, -troponins, high risk:71y,HTN, DM, smoker,CAD previous cathx5 Call Completed: No 02/06/17 07:50 Consult to Cardiac Rehabilitation-Phase1 [CONS] Routine Comment: Reason for Consult: s/p PCI Call Completed: Yes Discharging clinician: Camille Butler Anticipated date of discharge: 02/06/17 - Patient Status Disposition: Home, Self-Care Condition: Good Functional capacity at discharge: independent ambulation Overall status at discharge: patient is progressing back to baseline - Discharge Instructions Instructions: Chest Pain (DC), How to Stop Smoking (DC) Follow Up With: Danny Parks DO [Primary Care Provider] - 02/13/17 1:00 pm Jenniffer Espinoza DO [Partnered Physician] - - Diet and Activity Activity: as per the cardiac rehab Diet: diabetic diet Interval History: 71 yo M presented with chestpain, EKG with nonspecific ST segment changes, - troponins x3 cardiology consulted for unstable angina. Pt had cardiac catheterization with stent placement in the mid-distal RCA. Discussed risk factor modification with patient. Pt progressed well, with resolution of chestpain and palpitation. Hospital course: Mr. Cowan is a 71 year old male Time spent discussing smoking cessation with patient: 3 to 10 minutes - Time Spent with Patient Total time spent providing and/or coordinating discharge services: Less than 30 minutes - Constitutional Vitals: Temp Pulse Resp BP Pulse Ox 98.0 F 51 18 138/84 97 02/06/17 06:45 02/06/17 06:45 02/06/17 06:45 02/06/17 06:45 02/06/17 06:45 General appearance: Present: cooperative, A&O X 3, pleasant, no acute distress, obese - Head Head exam: Present: atraumatic, normocephalic - Eye Eye exam: Present: PERRL, conjuntiva pink, sclera anicteric Pupils: Present: PERRL - Neck Neck exam general surgery: Present: supple, trachea midline. Absent: lymphadenopathy - Respiratory Respiratory exam: Present: CTAB. Absent: accessory muscle use, rales, rhonchi, wheezes - Cardiovascular Cardiovascular exam: Present: RRR, +S1, +S2. Absent: diastolic murmur, gallop, rubs, systolic murmur - GI/Abdominal GI/Abdominal exam: Present: normal bowel sounds, soft, no peritoneal signs. Absent: distended, tenderness - Extremities Exam Extremities exam: Present: warm, radial pulses palpable and symetrical. Absent : calf tenderness, cyanotic, pedal edema - Incison Incision: Present: clean and dry, intact Comments: radial puncture C/D/I - Neurological Exam Neurological exam: Present: CN II-XII intact, oriented X3, no focal deficits. Absent: pronater drift, facial droop, speech deficit - Skin Skin exam: Present: dry, intact <Marcelino Nowak - Last Filed: 02/06/17 17:51> Date of Encounter: 02/06/17 - Discharge Diagnosis (1) Unstable angina Priority: Primary Status: Acute (2) CAD (coronary artery disease) Priority: Primary Status: Chronic Qualifiers: Coronary Disease-Associated Artery/Lesion type: unspecified vessel or lesion type [place] vs. 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: without equipment operator intermodal yard use Qualified Code(s): E11.8 - Type 2 diabetes mellitus with unspecified complications (4) Hypertension Priority: Secondary Status: Chronic Qualifiers: Hypertension type: essential hypertension Qualified Code(s): I10 - Essential (primary) hypertension (5) Hyperlipidemia Priority: Secondary Status: Chronic Qualifiers: Hyperlipidemia type: mixed hyperlipidemia Qualified Code(s): E78.2 - Mixed hyperlipidemia (6) Current every day smoker Priority: Secondary Status: Chronic Procedures/tests Complete & Pending: Procedures Performed prior 72 hours Category Date Time Status CL Cardiac Catheterization [CL] Routine Program Director/Traffic Director 02/04/17 14:50 Completed Date of admission: 02/03/17 20:11 Primary care physician: Danny Parks DO Consults: 02/04/17 10:06 Consult to Cardiology [CONS] Routine Comment: Consulting Provider: Cardiology Kiarra Reason for Consult: CP, -troponins, high risk:71y,HTN, DM, smoker,CAD previous cathx5 Call Completed: No 02/06/17 07:50 Consult to Cardiac Rehabilitation-Phase1 [CONS] Routine Comment: Reason for Consult: s/p PCI Call Completed: Yes Hospital course: Mr. Cowan is a 71 year old male - Time Spent with Patient Total time spent providing and/or coordinating discharge services: 25min - Constitutional Vitals: Temp Pulse Resp BP Pulse Ox 98.3 F 56 17 145/84 97 02/06/17 10:46 02/06/17 10:46 02/06/17 10:46 02/06/17 10:46 02/06/17 06:45 - Attending Attestation I examined this patient and my medical decision-making was reviewed with the Resident Physician on 02/06/17. I agree with the documented findings, disposition and treatment plan as described except to the extent set forth below. Mr. Cowan had 2 stents placed yesterday. He had uneventful night. No complaints now. He is afebrile and vitals stable. Exam Alert. Comfortable Heart reg No wheeze Plan D/C home today.
[2017-02-06] MEDS: Insulin DETEMIR 100 UNIT/ML X5UNITS SQ SCH (09:18)
[2017-02-06] MEDS: Ranolazine 500 MG TAB.ER.12H PO SCH (09:18)
[2017-02-06] MEDS: amLODIPine 5 MG TABLET PO SCH (09:19)
[2017-02-06] MEDS: Cyanocobalamin (B-12) 1,000 MCG TABLET PO SCH (09:19)
[2017-02-06] MEDS: Aspirin 81 MG TAB.CHEW PO SCH (09:19)
[2017-02-06] MEDS: Isosorbide MONOnitrate (24 HR) 60 MG TAB.ER.24H PO SCH (09:20)
[2017-02-06 10:08] LABS: Hematocrit 42.9 % (37.5-50.1); Hemoglobin 15.1 g/dL (12.9-16.9); Mean Corpuscular HGB Conc 35.2 g/dL (31.6-35.5); Mean Corpuscular Hemoglobin 28.6 pg (28.0-33.3); Mean Corpuscular Volume 81.3 fL (83.0-100.0); Mean Platelet Volume 10.3 fL (9.4-12.4); Red Blood Count 5.28 M/mcL (4.19-5.50); Red Cell Distribution Width 13.7 % (11.5-14.5)
[2017-02-06 10:19] LABS: BUN/Creatinine Ratio 9 (6-26); Blood Urea Nitrogen 12 mg/dL (8-26); Carbon Dioxide 24 mEq/L (19-29); Chloride 106 mEq/L (98-109); Glucose 183 mg/dL (70-99); Osmolality,Calculated 288 (280-300); Sodium 137 mEq/L (136-145); eGFR For African Americans > 60 (> 60); eGFR For Non-African Americans 56 (> 60)
[2017-02-06 10:50] VITALS: BP 145/84
--- NOTE | 2017-02-06 12:26 | Cardiology Progress Note ---
Date of Encounter: 02/06/17 Time of Encounter: 12:24 Assessment and Plan (1) Unstable angina Current Visit: Yes Status: Acute C/o Chest pain similar to previous [place]. Troponin negative x 3. EKG -NSR with non-specific T wave changes similair to previous [place]. New inferior Q waves. Stress test in October negative for ischemia. Medical management recommended at that time. Imdur and ranexa increased. . Recommend LHC for persistent chest pain. LHC revealed- EF 40-45%. He received CAITY x2 to the mid and distal RCA. Diffuse small vessel disease remaining. Findings: 40% stenosis in the Mid LAD. Proximal LAD 20% stenosis. 80% stenosis in the distal LAD near the apex 20% stenosis in the Mid Circumflex. There is a patent stent from a previous procedure. 70% stenosis in the mid 1st Marginal.The OM1 branch is tortuous and jailed in by previous circ stent. Vessel is small in size. Left to left collateral noted. 50% instent stenosis in the Proximal RCA. There is a 16 mm long, 90% stenosis in the Mid RCA. There is a 16 mm long, 90% stenosis in the Distal RCA. He received CAITY x 2 to the mid and distal RCA with good results. Continue DAPT with effient and asa. Continue statin and bb. Continue imdur and ranexa. Change lopressor to toprol XL for mildly decreased EF. No lili-inhibitor d/t elevated creatinine. Low sodium diet. He is currently euvolemic. Activity restrictions reviewed. No driving for 3-4 days. No soaking arm for one week. No heavy lifting, pushing, or pulling. Out-patient f/u will be scheduled with [facility]. Please call with questions. Cardiology signing off. (2) Hypertension Current Visit: Yes Status: Chronic Uncontrolled hypertension. Norvasc started. b/p improved. Low sodium diet. Qualifiers: Hypertension type: essential hypertension Qualified Code(s): I10 - Essential (primary) hypertension (3) CAD (coronary artery disease) Current Visit: Yes Status: Chronic H/o of [place] in 2014 and multiple PCI. Known obstructive small vessel CAD. Repeat LHC as decried above. Continue asa, effient, statin, bb, imdur, and Ranexa. Qualifiers: Coronary Disease-Associated Artery/Lesion type: unspecified vessel or lesion type [place] vs. transplanted heart: [place] heart Associated angina: with stable angina Qualified Code(s): I25.118 - Atherosclerotic heart disease of [place] coronary artery with other forms of angina pectoris (4) Ischemic cardiomyopathy Current Visit: Yes Status: Acute EF 40-45% on LHC. Currently euvolemic. Change lopressor to toprol XL. No lili inhibitor d/t fluctuating kidney function. Low sodium diet. Discussion w patient/family: The assessment and plan as outlined above was discussed with the patient and/or family members who expressed understanding and agreement. All questions were answered. Thank you for involving us in the care of your patient. Please call with any questions. Subjective Principal diagnosis: Unstable angina Interval history: Denies recurrent chest pain. States he is feeling better and more awake. No problem with right radial access site. Objective Vital Signs, Last 4 Hours Temp Pulse Resp BP 02/06/17 10:46 98.3 F 56 17 145/84 General: Conversant, No Apparent Distress HEENT: Atraumatic, Normocephaly, Mucus Membranes Moist Neck: No JVD, Normal carotid pulses Cardiac: Reg Rate and Rhythm, Normal S1 and S2, No Murmur Lungs: Normal Breath Sounds, No Wheeze, Rales, Rhonchi Neuro: Alert and responsive, No focal deficits noted Abdomen: Soft, Non-Tender Skin: No rashes noted on visualized skin Musculoskeletal: No Chest Wall Tenderness Extremities: No Clubbing, No Cyanosis, No Edema, Normal Pulses, Other (right radial access site without hematoma. ) Results 02/06/17 09:40 02/06/17 09:40 Lab Results 02/06/17 02/06/17 09:40 09:40 WBC 7.1 Hgb 15.1 Hct 42.9 Plt Count 309 Sodium 137 Potassium 4.0 Chloride 106 Carbon Dioxide 24 BUN 12 Creatinine 1.27 H Glucose 183 H Calcium 9.0 - Imaging and Cardiology Cardiac cath: report reviewed Consult Discharge Plan - Plan Instructions: Chest Pain (DC), How to Stop Smoking (DC) Referrals: Danny Parks DO [Primary Care Provider] - 02/13/17 1:00 pm Jenniffer Espinoza DO [Partnered Physician] - Prescriptions: amLODIPine [Norvasc] 5 mg PO DAILY #30 tablet Atorvastatin [Lipitor] 40 mg PO HS #30 tablet Metoprolol [Lopressor] 12.5 mg PO BID #60 tablet Nicotine Patch [Nicoderm] 21 mg TD DAILY PRN #30 patch.td24 PRN Reason: Nicotine Cravings
[2017-02-07] MEDS ORDERED: Metoprolol XL (24 HR) Succ 25 MG TAB.ER.24H PO SCH (09:00)
== END 2017-02-06 13:33 | disposition home or self-care (01) ==
LOC: 2NENU 16:34 → EMEROO 16:34 → 2NENU 21:31
PROVIDERS: ADMIT Internal Medicine Sleep Medicine; ATTEND Internal Medicine

== ENCOUNTER 2018-05-11 14:30 | Observation (INO) ==
[2018-05-11] MEDS ORDERED: Nitroglycerin 0.4 MG TAB.SUBL SL ONE (14:58)
[2018-05-11] MEDS ORDERED: Aspirin 81 MG TAB.CHEW PO ONE (14:58)
--- NOTE | 2018-05-11 15:03 | Emergency Department Note ---
Disposition Clinical Impression: Chest pain Qualifiers: Chest pain type: unspecified Qualified Code(s): R07.9 - Chest pain, unspecified Disposition: Admitted As Inpatient Condition: Fair Time of Disposition: 18:33 Chest Pain HPI - General Chief Complaint: ED Chest Pain Stated Complaint: CP Time Seen by Provider: 05/11/18 14:43 Source: patient, family Mode of arrival: ambulatory Limitations: no limitations Vital Signs Reviewed: Yes Nursing Notes Reviewed: Yes - History of Present Illness HPI Narrative: Patient is a 72-year-old male presenting with chest pain. Patient's past medical history significant for MO, CAD status post stent 9, hypertension, diabetes, hyperlipidemia. Patient states that starting at 8:00 he began to have chest pain located in the mid chest described as a tightness in the mid epigastric mid chest region, described to be a pain of 6 out of 10 at times, radiating into his back. Does have exertional component. States that he has had multiple episodes today, lasting for a few seconds up to a few minutes. He did take one nitroglycerin tablet without relief about an hour ago. He does have associated shortness of breath, denies diaphoresis, nausea or vomiting, lightheaded or dizziness. He states that this does feel similar to the chest pain episodes he has had in the past when he was diagnosed with MO or had stents placed. He is a known patient of Dr. Espinoza, for cardiology. He states that when touching the middle of his chest does reproduce similar pain. Denies any recent trauma, abnormal twisting or bending. While in the room, patient did have episode of chest pain. States that he does not drink alcohol regularly , denies history of pancreatitis. Severity scale (1-10): 6 - Related Data Home Medications Medication Instructions Recorded Confirmed Aspirin [Lo-Dose Aspirin EC] 81 mg PO DAILY 05/11/18 05/11/18 Insulin Glargine [Lantus] 30 unit SQ BID 05/11/18 05/11/18 Isosorbide MONOnitrate (24 HR) 30 mg PO DAILY 05/11/18 05/11/18 [Imdur] Metoprolol [Lopressor] 25 mg PO BID 05/11/18 05/11/18 Nitroglycerin [Nitrostat] 0.4 mg SL Q5M PRN MDD [id number] CALL 05/11/18 05/11/18 911 Paroxetine HCl [Paxil] 5 mg PO DAILY 05/11/18 05/11/18 Prasugrel [Effient] 10 mg PO DAILY 05/11/18 05/11/18 Ranolazine [Ranexa] 500 mg PO Q12H 05/11/18 05/11/18 Simvastatin [Zocor] 40 mg PO HS 05/11/18 05/11/18 Allergies Allergy/AdvReac Type Severity Reaction Status Date / Time glimepiride AdvReac Diarrhea Verified 05/11/18 17:53 metformin AdvReac Diarrhea Verified 05/11/18 17:53 All systems ED: reviewed and negative except as stated. Review of Systems: As Per HPI Constitutional: Denies: fever, chills ENT ED: Denies: congestion Cardiovascular: Reports: chest pain, dyspnea on exertion. Denies: palpitations , orthopnea, syncope, paroxysmal nocturnal dyspnea Respiratory: Reports: dyspnea. Denies: cough, wheezes, hemoptysis, sputum production Gastrointestinal: Denies: abdominal pain, nausea, vomiting, diarrhea, constipation Genitourinary: Denies: urgency, dysuria Musculoskeletal: Denies: back pain, neck pain Integumentary: Denies: rash Neurological: Denies: headache, weakness, numbness, paresthesias, confusion Psychiatric: Denies: anxiety Chest Pain PMH - Past Medical History Medical history: Reports: coronary artery disease, diabetes, hyperlipidemia, hypertension, myocardial infarction Surgical history: Reports: angioplasty/stent Psychiatric history: Reports: anxiety, depression - Social History Smoking Status: Current every day smoker Alcohol use: Reports: none Drug use: Reports: none Physical Exam - General Limitations: no limitations General appearance: alert, in no apparent distress - Head Head exam: atraumatic - Eye Eye exam: Present: normal appearance, EOMI - ENT ENT exam: normal exam, mucous membranes moist - Neck Neck exam: Present: normal inspection. Absent: tenderness - Chest Chest inspection: Present: normal inspection, symmetric chest wall rise, tenderness (With pinpoint palpation at the mid sternal) - Respiratory Respiratory exam: Present: normal lung sounds bilaterally. Absent: respiratory distress, wheezes - Cardiovascular Cardiovascular exam: Present: normal rhythm, bradycardia (At 53 bpm) - Abdominal Exam Abdominal exam: Present: soft, Non-Tender, normal bowel sounds. Absent: tenderness, distention, guarding, rebound, rigidity - Extremities Exam Extremities exam: Present: normal inspection, normal capillary refill. Absent: calf tenderness - Expanded Lower Extremity Exam Neurovascular/Tendon exam: Present: normal capillary refill. Absent: pulse deficit, motor deficit, sensory deficit - Back Exam Back exam: Present: normal inspection - Neurological Exam Neurological exam: Present: alert, oriented X3 - Psychiatric Psychiatric exam: Present: normal affect, normal mood - Skin Skin exam: Present: warm, dry, intact Course Course Narrative: Perform ACS rule out including CBC, BMP, troponin, EKG, chest x-ray, EKG. We will trial nitroglycerin for chest pain as tolerated by patient. Vital Signs Temperature 97.9 F 05/11/18 14:36 Pulse Rate 57 05/11/18 14:36 Respiratory Rate 14 05/11/18 14:36 Blood Pressure 150/89 05/11/18 14:36 O2 Sat by Pulse Oximetry 98 05/11/18 14:36 Temperature 97.9 F 05/11/18 14:36 Pulse Rate 52 05/11/18 16:41 Respiratory Rate 14 05/11/18 16:41 Blood Pressure 129/88 05/11/18 16:41 O2 Sat by Pulse Oximetry 99 05/11/18 16:41 Oxygen Delivery Oxygen Delivery Room Air Chest Pain - MDM Narrative Medical decision making narrative: Patient is a 72-year-old male presenting with chest pain. Past medical history significant for CAD status post stenting 9, MO, hypertension, diabetes, hyperlipidemia. Patient was examined as he arrived to the room. Patient continuing to complain of chest pain that goes from 5 out of 10-8 out of 10 while at bedside. We will initiate nitroglycerin trial. We will start morphine for pain if nitroglycerin is not successful. Physical exam was unremarkable. EKG was performed which showed no acute ischemic changes, multiple chronic unchanged from last EKG. Blood pressures are equal bilaterally. Patient was given nitroglycerin 2 without relief, morphine was given 2 mg which brought pain from an 8 out of 10-2 out of 10. Patient declined further morphine at this point in time. We will reevaluate. Repeat EKG showed no acute ischemic changes. Laboratory evaluation revealed a negative troponin, CBC, BMP, normal lipase. Urinalysis is negative for acute infection. Chest x-ray is unremarkable for acute intra-cardiopulmonary process. CT of the abdomen, pelvis and chest were negative for acute dissection or bleed. At this point in time, discussed disposition of admission for ACS rule out the patient. He is in understanding and agrees with plan and disposition. Patient was discussed with hospitalist, accepts patient at this time. - Medical Records Medical records reviewed: Yes I reviewed the patient's medical records. - Lab Data Lab results reviewed: Yes I reviewed the patient's lab results. Result diagrams: 05/11/18 15:35 05/11/18 15:35 Lab Results 05/11/18 05/11/18 05/11/18 Range/Units 15:35 15:35 15:35 WBC 6.6 (4.3-11.1) K/mcL RBC 5.49 (4.19-5.50) M/mcL Hgb 16.7 (12.9-16.9) g/dL Hct 45.5 (37.5-50.1) % MCV 82.9 L (83.0-100.0) fL MCH 30.4 (28.0-33.3) pg MCHC 36.7 H (31.6-35.5) g/dL RDW 13.9 (11.5-14.5) % Plt Count 234 (140-400) K/mcL MPV 10.6 (9.4-12.4) fL Immature Gran % 0.5 (0-4) % Seg Neutrophils % 39.2 % Lymphocytes % 38.4 % Monocytes % 9.4 % Eosinophils % 11.7 % Basophils % 0.8 % Neutrophils # 2.6 (1.6-8.9) K/mcL Lymphocytes # 2.5 (0.6-4.6) K/mcL Monocytes # 0.6 (0.0-1.3) K/mcL Eosinophils # 0.8 H (0.0-0.6) K/mcL Basophils # 0.1 (0.0-0.2) K/mcL PT 12.0 (9.4-12.1) Seconds INR 1.1 APTT 38.0 H (26.0-36.0) Seconds Sodium (136-145) mEq/L Potassium (3.5-5.1) mEq/L Chloride (98-107) mEq/L Carbon Dioxide (23-29) mEq/L BUN (8-23) mg/dL Creatinine (0.70-1.30) mg/dL Est GFR ( Amer) (> 60) Est GFR (Non-Af Amer) (> 60) BUN/Creatinine Ratio (6-26) Glucose (70-105) mg/dL Calculated Osmolality (280-300) Calcium (8.6-10.3) mg/dL Troponin I (< 0.04) ng/mL Lipase 22 (11-82) Units/L Urine Color (Yellow) Urine Clarity (Clear) Urine pH (5.0-8.0) pH Units Ur Specific [place] (1.010-1.025) Urine Protein (Neg-Trace) mg/dL Urine Glucose (UA) (Normal) mg/dL Urine Ketones (Negative) mg/dL Urine Blood (Negative) Urine Nitrite (Negative) Urine Bilirubin (Negative) Urine Urobilinogen (Normal) mg/dL Ur Leukocyte Esterase (Negative) Urine Microscopic RBC (0-3) per hpf Urine Microscopic WBC (0-3) per hpf Ur Squamous Epith Cells (None-Few) per lpf Urine Bacteria (None-Few) per hpf Hyaline Casts (None-Few) per lpf Ur Culture Indicated? (NO) 05/11/18 05/11/18 Range/Units 15:35 17:30 WBC (4.3-11.1) K/mcL RBC (4.19-5.50) M/mcL Hgb (12.9-16.9) g/dL Hct (37.5-50.1) % MCV (83.0-100.0) fL MCH (28.0-33.3) pg MCHC (31.6-35.5) g/dL RDW (11.5-14.5) % Plt Count (140-400) K/mcL MPV (9.4-12.4) fL Immature Gran % (0-4) % Seg Neutrophils % % Lymphocytes % % Monocytes % % Eosinophils % % Basophils % % Neutrophils # (1.6-8.9) K/mcL Lymphocytes # (0.6-4.6) K/mcL Monocytes # (0.0-1.3) K/mcL Eosinophils # (0.0-0.6) K/mcL Basophils # (0.0-0.2) K/mcL PT (9.4-12.1) Seconds INR APTT (26.0-36.0) Seconds Sodium 138 (136-145) mEq/L Potassium 3.9 (3.5-5.1) mEq/L Chloride 106 (98-107) mEq/L Carbon Dioxide 27 (23-29) mEq/L BUN 12 (8-23) mg/dL Creatinine 1.33 H (0.70-1.30) mg/dL Est GFR ( Amer) > 60 (> 60) Est GFR (Non-Af Amer) 53 L (> 60) BUN/Creatinine Ratio 9 (6-26) Glucose 72 (70-105) mg/dL Calculated Osmolality 284 (280-300) Calcium 9.1 (8.6-10.3) mg/dL Troponin I 0.03 (< 0.04) ng/mL Lipase (11-82) Units/L Urine Color Yellow (Yellow) Urine Clarity Clear (Clear) Urine pH 7.0 (5.0-8.0) pH Units Ur Specific [place] 1.019 (1.010-1.025) Urine Protein Trace (Neg-Trace) mg/dL Urine Glucose (UA) Normal (Normal) mg/dL Urine Ketones Negative (Negative) mg/dL Urine Blood Negative (Negative) Urine Nitrite Negative (Negative) Urine Bilirubin Negative (Negative) Urine Urobilinogen Normal (Normal) mg/dL Ur Leukocyte Esterase Negative (Negative) Urine Microscopic RBC 0-3 (0-3) per hpf Urine Microscopic WBC 0-3 (0-3) per hpf Ur Squamous Epith Cells None Seen (None-Few) per lpf Urine Bacteria None Seen (None-Few) per hpf Hyaline Casts None Seen (None-Few) per lpf Ur Culture Indicated? NO (NO) - Radiology Data Radiology results reviewed: Yes I reviewed the patient's radiology results. Chest X-Ray 05/11/18 14:58 IMPRESSION: No acute cardiopulmonary disease. D/ / Eliu June MD / Eliu June MD Interpreting Provider: Eliu June MD Abdomen/Pelvis CTA 05/11/18 15:21 IMPRESSION: No CT evidence of acute intrathoracic or intra-abdominal process. 2.7 cm lesion in the inferior left kidney is suspicious for a solid renal mass. Further evaluation with left kidney ultrasound or kidney protocol CT or MRI would be useful. Multiple left retroperitoneal lymph nodes which are subcentimeter in short axis are nonspecific. Neoplastic etiology cannot be excluded. Markedly enlarged prostate gland. Correlation with PSA advised. Two 5 mm nodules in the left upper lobe, 1 of which was too small to detect on the February 2018 study. Given the interval growth of this nodule, recommend CT of the chest in 6 months. Mild aneurysmal dilatation of the ascending thoracic aorta measuring 4.1 cm in diameter. Coronary artery calcifications. 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 D/ / Carlo Rico / Carlo Rico Interpreting Provider: Carlo Rico Chest CTA 05/11/18 15:21 IMPRESSION: No CT evidence of acute intrathoracic or intra-abdominal process. 2.7 cm lesion in the inferior left kidney is suspicious for a solid renal mass. Further evaluation with left kidney ultrasound or kidney protocol CT or MRI would be useful. Multiple left retroperitoneal lymph nodes which are subcentimeter in short axis are nonspecific. Neoplastic etiology cannot be excluded. Markedly enlarged prostate gland. Correlation with PSA advised. Two 5 mm nodules in the left upper lobe, 1 of which was too small to detect on the February 2018 study. Given the interval growth of this nodule, recommend CT of the chest in 6 months. Mild aneurysmal dilatation of the ascending thoracic aorta measuring 4.1 cm in diameter. Coronary artery calcifications. 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 D/ / Carlo Rico / Carlo Rico Interpreting Provider: Carlo Rico - EKG Data EKG attestation: Yes I reviewed and interpreted this EKG. EKG results narrative: EKG performed on 05/11/2018 at 1434 with ventricular rate of 55 bpm, regular rhythm, normal axis, SC interval at 228, QRS at 98, QTC 464, QTc 453, Q waves in 2, 3, aVF, T-wave inversion in lead 1, 2, aVL, V4, V5, V6. Overall, bradycardic with first degree AV block. When compared to previous on 03-24-2017 , ST and T wave changes are unchanged, Q waves are unchanged, prolonged SC interval When compared to previous EKG there are: no significant changes S.B.A.R. - S.B.A.R. Situation: Demographics, MOA Background: Presenting Complaint, Relevant PMH, Meds, & Allergies Assessment: Vital Signs, Course and respsone to treatment, Exam Concerns, Patient/Family Expectation, Pertinant Lab Results Recommendation: Barrier(s) to disposition, Recommendation based on pending studies, treatments, or consults S.B.A.RDanny Report Given to: Hospitalist, Dr. Holland SKortney Repor Time: 18:33 (accepted) Attestation Statement - Attestation Attestation: I, Archie Stallworth DO, examined this patient [id number] and my medical decision-making was reviewed with Dr. Catalino Sales , Resident Physician. I agree with the documented findings, disposition and treatment plan as described except to the extent set forth below. Please see my progress notes for details.
[2018-05-11] MEDS ORDERED: 0.9 % Sodium Chloride 500 ML IVC ONE (15:09)
[2018-05-11 15:52] LABS: Basophils # 0.1 K/mcL (0.0-0.2); Basophils % 0.8 %; Eosinophils # 0.8 K/mcL (0.0-0.6); Eosinophils % 11.7 %; Hematocrit 45.5 % (37.5-50.1); Hemoglobin 16.7 g/dL (12.9-16.9); Immature Granulocytes % 0.5 % (0-4); Lymphocytes # 2.5 K/mcL (0.6-4.6); Lymphocytes % 38.4 %; Mean Corpuscular HGB Conc 36.7 g/dL (31.6-35.5); Mean Corpuscular Hemoglobin 30.4 pg (28.0-33.3); Mean Corpuscular Volume 82.9 fL (83.0-100.0); Mean Platelet Volume 10.6 fL (9.4-12.4); Monocytes # 0.6 K/mcL (0.0-1.3); Monocytes % 9.4 %; Neutrophils # 2.6 K/mcL (1.6-8.9); Platelet Count 234 K/mcL (140-400); Red Blood Count 5.49 M/mcL (4.19-5.50); Red Cell Distribution Width 13.9 % (11.5-14.5); Segmented Neutrophils % 39.2 %
[2018-05-11 15:58] LABS: INR 1.1
[2018-05-11 16:14] LABS: BUN/Creatinine Ratio 9 (6-26); Blood Urea Nitrogen 12 mg/dL (8-23); Calcium 9.1 mg/dL (8.6-10.3); Carbon Dioxide 27 mEq/L (23-29); Chloride 106 mEq/L (98-107); Glucose 72 mg/dL (70-105); Osmolality,Calculated 284 (280-300); Potassium 3.9 mEq/L (3.5-5.1); Sodium 138 mEq/L (136-145); eGFR For Non-African Americans 53 (> 60)
[2018-05-11 16:15] LABS: Troponin I 0.03 ng/mL (< 0.04)
[2018-05-11] MEDS ORDERED: *HR* Morphine 2 MG/ML SYRINGE IVP ONE (16:15)
[2018-05-11] MEDS: Isovue-370 500 ML INFUS..BTL IV ONE (17:09)
--- NOTE | 2018-05-11 17:13 | Emergency Department Note ---
Disposition Clinical Impression: Chest pain Qualifiers: Chest pain type: unspecified Qualified Code(s): R07.9 - Chest pain, unspecified Disposition: Admitted As Inpatient Condition: Fair Time of Disposition: 18:55 General Adult HPI - General Chief complaint: ED Chest Pain Stated complaint: CP Time Seen by Provider: 05/11/18 14:43 Source: patient, family Mode of arrival: ambulatory Limitations: no limitations - History of Present Illness Pain Scale: 6 - Related Data Home Medications Medication Instructions Recorded Confirmed Aspirin [Lo-Dose Aspirin EC] 81 mg PO DAILY 05/11/18 05/11/18 Insulin Glargine [Lantus] 30 unit SQ BID 05/11/18 05/11/18 Isosorbide MONOnitrate (24 HR) 30 mg PO DAILY 05/11/18 05/11/18 [Imdur] Metoprolol [Lopressor] 25 mg PO BID 05/11/18 05/11/18 Nitroglycerin [Nitrostat] 0.4 mg SL Q5M PRN MDD [id number] CALL 05/11/18 05/11/18 911 Paroxetine HCl [Paxil] 5 mg PO DAILY 05/11/18 05/11/18 Prasugrel [Effient] 10 mg PO DAILY 05/11/18 05/11/18 Ranolazine [Ranexa] 500 mg PO Q12H 05/11/18 05/11/18 Simvastatin [Zocor] 40 mg PO HS 05/11/18 05/11/18 Allergies Allergy/AdvReac Type Severity Reaction Status Date / Time glimepiride AdvReac Diarrhea Verified 05/11/18 17:53 metformin AdvReac Diarrhea Verified 05/11/18 17:53 Constitutional: Denies: fever, chills ENT ED: Denies: congestion Cardiovascular: Reports: chest pain, dyspnea on exertion. Denies: palpitations , orthopnea, syncope, paroxysmal nocturnal dyspnea Respiratory: Reports: dyspnea. Denies: cough, wheezes, hemoptysis, sputum production Gastrointestinal: Denies: abdominal pain, nausea, vomiting, diarrhea, constipation Genitourinary: Denies: urgency, dysuria Musculoskeletal: Denies: back pain, neck pain Integumentary: Denies: rash Neurological: Denies: headache, weakness, numbness, paresthesias, confusion Psychiatric: Denies: anxiety Past Medical History - Past Medical History Medical history: Reports: coronary artery disease, diabetes, hyperlipidemia, hypertension, myocardial infarction Surgical history: Reports: angioplasty/stent Psychiatric history: Reports: anxiety, depression - Social History Smoking Status: Current every day smoker Smokeless Tobacco Status: No Alcohol use: Reports: none Drug use: Reports: none Physical Exam - General Limitations: no limitations General appearance: alert, in no apparent distress Course Vital Signs Temperature 97.9 F 05/11/18 14:36 Pulse Rate 57 05/11/18 14:36 Respiratory Rate 14 05/11/18 14:36 Blood Pressure 150/89 05/11/18 14:36 O2 Sat by Pulse Oximetry 98 05/11/18 14:36 Temperature 97.9 F 05/11/18 14:36 Pulse Rate 52 05/11/18 16:41 Respiratory Rate 14 05/11/18 16:41 Blood Pressure 129/88 05/11/18 16:41 O2 Sat by Pulse Oximetry 99 05/11/18 16:41 Oxygen Delivery Oxygen Delivery Room Air Medical Decision Making - Lab Data Result diagrams: 05/11/18 15:35 05/11/18 15:35 Lab Results 05/11/18 05/11/18 05/11/18 Range/Units 15:35 15:35 15:35 WBC 6.6 (4.3-11.1) K/mcL RBC 5.49 (4.19-5.50) M/mcL Hgb 16.7 (12.9-16.9) g/dL Hct 45.5 (37.5-50.1) % MCV 82.9 L (83.0-100.0) fL MCH 30.4 (28.0-33.3) pg MCHC 36.7 H (31.6-35.5) g/dL RDW 13.9 (11.5-14.5) % Plt Count 234 (140-400) K/mcL MPV 10.6 (9.4-12.4) fL Immature Gran % 0.5 (0-4) % Seg Neutrophils % 39.2 % Lymphocytes % 38.4 % Monocytes % 9.4 % Eosinophils % 11.7 % Basophils % 0.8 % Neutrophils # 2.6 (1.6-8.9) K/mcL Lymphocytes # 2.5 (0.6-4.6) K/mcL Monocytes # 0.6 (0.0-1.3) K/mcL Eosinophils # 0.8 H (0.0-0.6) K/mcL Basophils # 0.1 (0.0-0.2) K/mcL PT 12.0 (9.4-12.1) Seconds INR 1.1 APTT 38.0 H (26.0-36.0) Seconds Sodium (136-145) mEq/L Potassium (3.5-5.1) mEq/L Chloride (98-107) mEq/L Carbon Dioxide (23-29) mEq/L BUN (8-23) mg/dL Creatinine (0.70-1.30) mg/dL Est GFR ( Amer) (> 60) Est GFR (Non-Af Amer) (> 60) BUN/Creatinine Ratio (6-26) Glucose (70-105) mg/dL Calculated Osmolality (280-300) Calcium (8.6-10.3) mg/dL Troponin I (< 0.04) ng/mL Lipase 22 (11-82) Units/L Urine Color (Yellow) Urine Clarity (Clear) Urine pH (5.0-8.0) pH Units Ur Specific [place] (1.010-1.025) Urine Protein (Neg-Trace) mg/dL Urine Glucose (UA) (Normal) mg/dL Urine Ketones (Negative) mg/dL Urine Blood (Negative) Urine Nitrite (Negative) Urine Bilirubin (Negative) Urine Urobilinogen (Normal) mg/dL Ur Leukocyte Esterase (Negative) Urine Microscopic RBC (0-3) per hpf Urine Microscopic WBC (0-3) per hpf Ur Squamous Epith Cells (None-Few) per lpf Urine Bacteria (None-Few) per hpf Hyaline Casts (None-Few) per lpf Ur Culture Indicated? (NO) 05/11/18 05/11/18 Range/Units 15:35 17:30 WBC (4.3-11.1) K/mcL RBC (4.19-5.50) M/mcL Hgb (12.9-16.9) g/dL Hct (37.5-50.1) % MCV (83.0-100.0) fL MCH (28.0-33.3) pg MCHC (31.6-35.5) g/dL RDW (11.5-14.5) % Plt Count (140-400) K/mcL MPV (9.4-12.4) fL Immature Gran % (0-4) % Seg Neutrophils % % Lymphocytes % % Monocytes % % Eosinophils % % Basophils % % Neutrophils # (1.6-8.9) K/mcL Lymphocytes # (0.6-4.6) K/mcL Monocytes # (0.0-1.3) K/mcL Eosinophils # (0.0-0.6) K/mcL Basophils # (0.0-0.2) K/mcL PT (9.4-12.1) Seconds INR APTT (26.0-36.0) Seconds Sodium 138 (136-145) mEq/L Potassium 3.9 (3.5-5.1) mEq/L Chloride 106 (98-107) mEq/L Carbon Dioxide 27 (23-29) mEq/L BUN 12 (8-23) mg/dL Creatinine 1.33 H (0.70-1.30) mg/dL Est GFR ( Amer) > 60 (> 60) Est GFR (Non-Af Amer) 53 L (> 60) BUN/Creatinine Ratio 9 (6-26) Glucose 72 (70-105) mg/dL Calculated Osmolality 284 (280-300) Calcium 9.1 (8.6-10.3) mg/dL Troponin I 0.03 (< 0.04) ng/mL Lipase (11-82) Units/L Urine Color Yellow (Yellow) Urine Clarity Clear (Clear) Urine pH 7.0 (5.0-8.0) pH Units Ur Specific [place] 1.019 (1.010-1.025) Urine Protein Trace (Neg-Trace) mg/dL Urine Glucose (UA) Normal (Normal) mg/dL Urine Ketones Negative (Negative) mg/dL Urine Blood Negative (Negative) Urine Nitrite Negative (Negative) Urine Bilirubin Negative (Negative) Urine Urobilinogen Normal (Normal) mg/dL Ur Leukocyte Esterase Negative (Negative) Urine Microscopic RBC 0-3 (0-3) per hpf Urine Microscopic WBC 0-3 (0-3) per hpf Ur Squamous Epith Cells None Seen (None-Few) per lpf Urine Bacteria None Seen (None-Few) per hpf Hyaline Casts None Seen (None-Few) per lpf Ur Culture Indicated? NO (NO) Attestation Statement - Attestation Attestation: I, Archie Stallworth DO, examined this patient [id number] and my medical decision-making was reviewed with Dr. Catalino Sales , Resident Physician. I agree with the documented findings, disposition and treatment plan as described except to the extent set forth below. Please see my progress notes for details. 72-year-old male presents to the emergency room for evaluation of chest pain. Patient is a long-standing history of cardiac disease and coronary artery disease. His had 9 stents in the past most recently within the last year. He is on Effient for anticoagulation. Patient currently is having intermittent chest pain. The symptoms come and go sporadically with no attributable sources at this time. He initially was denying chest pain and then during the evaluation at the bedside respiratory minutes after arrival started chest pain again. EKG will be collected in serious succession here in the emergency room. Chest x-ray CBC chemistry troponin along with nitroglycerin will be given. Patient does not require any other emergent intervention. He does not have a history of aortic dissection or aneurysm in the past. Bedside ultrasonography was utilized visualizing the abdominal aorta with no signs of distention aneurysm or abnormality. Patient has symmetrical radial pulses and blood pressures. We will continue to monitor here symptomatically control is completed and disposition is determined. CT angiography of the chest and abdomen will most likely be resulted once kidney function is completed. Previous review of labs from historical reevaluation does show concern for GFR related issues I do not want to throw the patient into renal insufficiency. We will continue to monitor here. Physical exam is otherwise unremarkable lungs are clear heart is regular abdomen is soft. Disposition pending a full workup and treatment course. Detailed documentation the physical exam, medical intervention, medical decision-making and disposition the resident physician's note. 174 CT angiography does not show any acute signs of dissection or aneurysm. Chest pain is down to a 2 out of 10 now from a 7. Patient was offered more morphine or nitroglycerin but he declined at this time. EKG was repeated shows no acute morphology changes. Initial troponin is negative. Patient will be admitted once the treatment course has been established does not require anticoagulation considering his artery on appropriate anticoagulation at this time. [id number] Hospitalist was contacted recommendations were discussed and reviewed. No other concerns or issues at this time. Patient will be admitted for definitive management.
[2018-05-11 17:42] LABS: Bilirubin,Urine Negative (Negative); Blood,Urine Negative (Negative); Clarity,Urine Clear (Clear); Color,Urine Yellow (Yellow); Glucose,Urine (UA) Normal (Normal); Ketones,Urine Negative (Negative); Leukocyte Esterase,Urine Negative (Negative); Nitrite,Urine Negative (Negative); Protein,Urine Trace mg/dL (Neg-Trace); Specific Gravity,Urine 1.019 (1.010-1.025); Urobilinogen,Urine Normal (Normal)
[2018-05-11 17:46] LABS: Bacteria,Urine None Seen per hpf (None-Few); Hyaline Casts,Urine None Seen per lpf (None-Few); RBC,Urine 0-3 per hpf (0-3); Squamous Epithelial Cell,Urine None Seen per lpf (None-Few); WBC,Urine 0-3 per hpf (0-3)
[2018-05-11] MEDS ORDERED: Naloxone 0.4 MG/ML INJ IVP PRN (21:17)
[2018-05-11] MEDS ORDERED: Nitroglycerin 0.4 MG TAB.SUBL SL PRN (21:19)
--- NOTE | 2018-05-11 21:34 | Internal Med History&Physical ---
Date of Encounter: 05/11/18 Time of Encounter: 21:29 Internal Medicine - H&P: HPI Chief complaint: chest pain Admitted From: Home Plans for Post Hospital Care: Home History of present illness: Mr. Cowan is a 72 year old male with history of [place], status post PCI presents with chief complaint of chest pain that started the morning around 8 AM. Patient reports he woke up with the pain as substernal 8 out of 10, quality described this chest pressure without radiation. Patient denies palpitations, blurry vision, shortness of breath, nausea, vomiting, presyncope, diaphoresis. He reports his pain lasted until 1 PM. His pain worsened with exertion. His pain did not improve with nitroglycerin which she took that home and was given 1 in the ER. He was then given IV morphine in the ER which subsided his pain. He reported pain with palpation of his chest wall. Past Med Surg Social Fam HX - Past Medical History Medical history: coronary artery disease, diabetes, hyperlipidemia, hypertension , myocardial infarction Psychiatric history: anxiety, depression - Past Surgical History Surgical History: angioplasty/stent Additional surgical history: carpal tunnel. 2-back surgeries - Social History Smoking Status: Current every day smoker Smokeless Tobacco Status: No Alcohol use: none Drug use: none - Family History Mother Family Member Ethnicity: Non- Living Status: Hx Family Cardiac Disorders: Yes (CHF) Hx Family Endocrine Disorder: Yes (DM) Father Family Member Ethnicity: Non- Living Status: Hx Family Cardiac Disorders: Yes (HD) Hx Family Endocrine Disorder: Yes (DM) Brother Family Member Ethnicity: Non- Living Status: Hx Family Cardiac Disorders: Yes (CHF) Internal Medicine - H&P: Meds Aspirin [Lo-Dose Aspirin EC] 81 mg PO DAILY 05/11/18 [History] Insulin Glargine [Lantus] 30 unit SQ BID 05/11/18 [History] Isosorbide MONOnitrate (24 HR) [Imdur] 30 mg PO DAILY 05/11/18 [History] Metoprolol [Lopressor] 25 mg PO BID 05/11/18 [History] Nitroglycerin [Nitrostat] 0.4 mg SL Q5M PRN MDD [id number] CALL 911 05/11/18 [ History] Paroxetine HCl [Paxil] 5 mg PO DAILY 05/11/18 [History] Prasugrel [Effient] 10 mg PO DAILY 05/11/18 [History] Ranolazine [Ranexa] 500 mg PO Q12H 05/11/18 [History] Simvastatin [Zocor] 40 mg PO HS 05/11/18 [History] 3 Allergy/AdvReac Type Severity Reaction Status Date / Time glimepiride AdvReac Diarrhea Verified 05/11/18 17:53 metformin AdvReac Diarrhea Verified 05/11/18 17:53 All Systems PM: A 10-system review of systems was performed and is negative for pertinent findings except as documented above in the HPI. Review of systems: Constitutional: Denies fever, chills HEENT: Denies headache, trauma, blurry vision, eye discharge, ear pain, ear discharge neck pain, sore throat, rhinorrhea Heart: Reports chest pain denies palpitations, LE edema Lungs: Denies shortness of breath cough Abdomen: Denies abdominal pain nausea vomiting diarrhea MSK: Denies back pain, falls, joint pain Kidney: Denies dysuria, hematuria Skin: Denies rash, ulcers Neuro: Denies numbness and tingling Psych: denies axniety, depression - Constitutional Vitals: Temp Pulse Resp BP Pulse Ox 97.6 F 68 16 181/96 98 05/11/18 20:04 05/11/18 20:04 05/11/18 20:04 05/11/18 20:04 05/11/18 20:04 Exam: General: pleasant, without distress HEENT: Head atraumatic, normocephalic, EOMI, PERRL, absent ear discharge or trauma, Moist Mucous Membranes, uvula midline Neck: nontender to palpation, absent lymphadenopathy, Cardiovascualr: Regular rate and rhythm with no murmur, absent gallops or rubs, absent pedal edema, radial pulses 2 out of 4 Lungs: Clear to auscultation bilaterally, not in respiratory distress Abdomen: Soft nontender, nondistended positive bowel sounds, absent hepatomegaly Skin: warm and dry, absent rash, absent open wounds and nodules MSK: absent clubbing, cyanosis, joints without swelling Neuro: Cranial nerves II through XII intact, UE and LE sensation equal bilaterally, UE and LEstrength 5/5, alert oriented 3, Psych: good insight and judgment, Internal Med - H&P Results - Labs CBC & Chem 7: 05/11/18 15:35 05/11/18 15:35 - Assessment and plan (1) Atypical chest pain Current Visit: Yes Status: Acute Assessment and plan: 72-year-old male presents with chief complaint of chest pain Atypical chest pain: Substernal, worsens with exertion, does not improve with nitroglycerin Cardiac history: 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 Status post multiple PCI. Left heart catheterization 01/2018 showed severe 1 vessel coronary disease in the mid and distal RCA with placement of CAITY in the mid and distal RCA. Last echocardiogram in 01/2018 showed LVEF of 45-50% with global to low normal LV systolic dysfunction and moderate diastolic dysfunction. Patient is currently on aspirin, Effient, metoprolol, Ranexa, Imdur [place] to patient he had tenderness with palpation of the chest where his pain was located. And this pain improved with IV morphine. Heart score 5 (moderate risk) CTA of chest and abdomen was negative for any acute processes. Initial troponin within normal limits EKG shows normal sinus rhythm with Q waves in leads 2, 3, aVF, without any new ST-T wave changes. LVH and there are no differences when compared to previous. Plan: Current troponin, continue aspirin, Effient, Imdur, Ranexa. We will repeat echocardiogram. (2) Diabetes mellitus Current Visit: Yes Status: Chronic Assessment and plan: History of insulin-dependent diabetes mellitus Last hemoglobin A1c was 6.7 on 04/07/18 Cardiac ADA diet Continue home insulin regimen. 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 Qualifiers: Hypertension type: essential hypertension Qualified Code(s): I10 - Essential (primary) hypertension (4) Current every day smoker Current Visit: Yes Status: Chronic Assessment and plan: Patient reports he smokes cigars every day He was educated on benefits of smoking cessation Patient is not eager to quit. (5) DVT prophylaxis Current Visit: Yes Status: Acute Assessment and plan: Heparin subcutaneous (6) CAD (coronary artery disease) Current Visit: Yes Status: Chronic Assessment and plan: As reported above patient is a history of coronary disease Plan as above. Qualifiers: Coronary Disease-Associated Artery/Lesion type: [place] artery [place] vs. transplanted heart: [place] heart Associated angina: with stable angina Qualified Code(s): I25.118 - Atherosclerotic heart disease of [place] coronary artery with other forms of angina pectoris (7) Hyperlipidemia Current Visit: Yes Status: Chronic Assessment and plan: Patient's last lipid panel was on 04/07/2018 LDL was 36 and HDL was 29 Continue atorvastatin. Qualifiers: Hyperlipidemia type: mixed hyperlipidemia Qualified Code(s): E78.2 - Mixed hyperlipidemia (8) Renal mass Current Visit: Yes Status: Acute Assessment and plan: Ct showed 2.7 cm lesion in the inferior left kidney: solid mass plan: patient will need follow up imaging outpatient. (9) Prostate enlargement Current Visit: Yes Status: Acute Assessment and plan: Ct shows evidence of prostate enlargement last PSA in aug was 1.74 follow up with pcp for further evaluation (10) Pulmonary nodule Current Visit: Yes Status: Acute Assessment and plan: CT showed two five mm nodules in the left upper lobe with interval growth from January 2018 hx of tobacco use will need repeat ct chest in 6 months - Time Spent With Patient Total time spent is greater than 50% in coordination of care (as documented) at patient's floor/unit and/or counseling patient:
[2018-05-11] MEDS: Ranolazine 500 MG TAB.ER.12H PO SCH (23:05)
[2018-05-11] MEDS: *HR* Heparin 5,000 UNIT/ML VIAL SQ SCH (23:05)
[2018-05-12] MEDS: *HR* Heparin 5,000 UNIT/ML VIAL SQ SCH ×2 (05:53→14:06)
[2018-05-12] MEDS ORDERED: Isosorbide MONOnitrate (24 HR) 30 MG TAB.ER.24H PO SCH (09:00)
[2018-05-12] MEDS ORDERED: Aspirin Enteric Coated 81 MG Tablet PO SCH (09:00)
[2018-05-12] MEDS ORDERED: NON-FORMULARY MEDICATION 1 EACH EACH (Insulin Glargine [Lantus] 30 UNIT) SQ SCH (09:00)
[2018-05-12] MEDS ORDERED: Insulin DETEMIR 100 UNIT/ML X5UNITS SQ SCH (09:00)
[2018-05-12] MEDS ORDERED: PAROXETINE 5 MG PO SCH (09:00)
[2018-05-12 11:06] VITALS: BP 165/88
[2018-05-12] MEDS: Ranolazine 500 MG TAB.ER.12H PO SCH (11:35)
--- NOTE | 2018-05-12 13:23 | Internal Med Progress Note ---
Hospitalist Progress Note - Encounter Date of Encounter: 05/12/18 Time of Encounter: 13:21 - Subjective Interval History: Pt denies having CP or SOB at this time. Pt declining to have stress test done. brought patient some food which he already ate. - Exam Vitals: Temp Pulse Resp BP Pulse Ox 98.1 F 60 16 165/88 98 05/12/18 11:05 05/12/18 11:05 05/12/18 11:05 05/12/18 11:05 05/12/18 11:05 Exam: General: pleasant, without distress HEENT: Head atraumatic, normocephalic, EOMI, PERRL, absent ear discharge or trauma, Moist Mucous Membranes, uvula midline Neck: nontender to palpation, absent lymphadenopathy, Cardiovascualr: Regular rate and rhythm with no murmur, absent gallops or rubs, absent pedal edema, radial pulses 2 out of 4 Lungs: Clear to auscultation bilaterally, not in respiratory distress Abdomen: Soft nontender, nondistended positive bowel sounds, absent hepatomegaly Skin: warm and dry, absent rash, absent open wounds and nodules MSK: absent clubbing, cyanosis, joints without swelling Neuro: Cranial nerves II through XII intact, UE and LE sensation equal bilaterally, UE and LEstrength 5/5, alert oriented 3, Psych: good insight and judgment, DVT Prophylaxis: Heparin - Summary of Assessment and Plan Summary of Assessment and Plan: Mr. Cowan is a 72 year old male with history of [place], status post PCI presents with chief complaint of chest pain that started the morning around 8 AM. Patient reports he woke up with the pain as substernal 8 out of 10, quality described this chest pressure without radiation. Patient denies palpitations, blurry vision, shortness of breath, nausea, vomiting, presyncope, diaphoresis. He reports his pain lasted until 1 PM. His pain worsened with exertion. His pain did not improve with nitroglycerin which she took that home and was given 1 in the ER. He was then given IV morphine in the ER which subsided his pain. He reported pain with palpation of his chest wall. - Time Spent with Patient Total time spent is greater than 50% in coordination of care (as documented) at patient's floor/unit and/or counseling patient: 25 - 35 minutes Plan of Care Discussed with: patient Internal Medicine: Result - Labs CBC & Chem 7: 05/11/18 15:35 05/11/18 15:35 Labs: Cardiac Enzymes 05/11/18 05/12/18 Range/Units 22:27 04:38 Troponin I 0.03 0.03 (< 0.04) ng/mL - ABG Interpretation ABG results: PT/INR, D-dimer PT 12.0 Seconds (9.4-12.1) 05/11/18 15:35 - Impressions Impressions Echocardiogram 05/11/18 21:28 Impressions: LVEF 50-55%. Normal LV chamber size and function. Mild concentric left ventricular hypertrophy. Mild left ventricular diastolic dysfunction. Atypical septal motion consistent with bundle branch block. Normal right ventricular structure and function. Unable to estimate RVSP due to lack of TR jet. No significant valvular dysfunction. Left Ventricular Wall Motion: Rest Echo Findings All wall segments showed normal motion. Findings: Study Quality * Technically adequate exam. ECG Findings * Sinus rhythm with BBB. Left Ventricle * LVEF 50-55%. * Normal LV chamber size and function. * Mild concentric left ventricular hypertrophy. * Mild left ventricular diastolic dysfunction. * Atypical septal motion consistent with bundle branch block. Right Ventricle * Normal right ventricular structure and function. Left Atrium * Moderately dilated left atrium. Right Atrium * Mildly dilated right atrium. Aortic Valve * Trileaflet aortic valve. * Mildly calcified aortic valve leaflets. * No aortic regurgitation. * No aortic stenosis. Mitral Valve * Mildly thickened mitral valve leaflets. * Trace mitral regurgitation. * No mitral stenosis. Tricuspid Valve * Normal tricuspid valve structure and function. * No tricuspid regurgitation. * Unable to estimate RVSP due to lack of TR jet. Pulmonic Valve * Pulmonic valve is not well visualized. * No pulmonic regurgitation. Aorta * Normally sized aortic root. Pericardium * The pericardium appears normal. IVC * Normal IVC dimensions and inspiratory collapse. Pulmonary Artery * Normal visualized portions of the main pulmonary artery. Interatrial Septum * No evidence of PFO with agitated saline contrast. Consult Discharge Plan - Plan Referrals: Danny Parks DO [Primary Care Provider] -
--- NOTE | 2018-05-12 13:25 | Cardiology Consult Note ---
Date of Encounter: 05/12/18 Time of Encounter: 13:18 Assessment and Plan (1) Chest pain Current Visit: Yes Status: Acute atypical angina P: given ho PCI and residual disease in distal LAD and LCx, strongly recommend stress test, however, pt refuses and understand the risk of delay of management or GA if no stress test. pt adamanty chooses going home without stress test and coming back if cp recures. ask pt to come to ED if cp recurrs, f/u cardiology for an outpatient stress test , and pt agrees BP need better ctr, defer to primary team Qualifiers: Chest pain type: unspecified Qualified Code(s): R07.9 - Chest pain, unspecified (2) Hypertension Current Visit: Yes Status: Chronic BP fluctuating. Pain or need better ctr. defer to primary team. Qualifiers: Hypertension type: essential hypertension Qualified Code(s): I10 - Essential (primary) hypertension (3) CAD (coronary artery disease) Current Visit: Yes Status: Chronic RCA CAITY. residual distal LAD 80% and OM1 70%. C/w DAPT, statin, BB, imdur, ranexa Qualifiers: Coronary Disease-Associated Artery/Lesion type: [place] artery [place] vs. transplanted heart: [place] heart Associated angina: angina presence unspecified Qualified Code(s): I25.10 - Atherosclerotic heart disease of [place] coronary artery without angina pectoris (4) Diabetes mellitus Current Visit: Yes Status: Chronic Qualifiers: Diabetes mellitus type: type 2 Diabetes mellitus alf insulin use: without alf use Diabetes mellitus complication status: with unspecified complications Qualified Code(s): E11.8 - Type 2 diabetes mellitus with unspecified complications Discussion w patient/family: The assessment and plan as outlined above was discussed with the patient and/or family members who expressed understanding and agreement. All questions were answered. Thank you for involving us in the care of your patient. Please call with any questions. History of Present Illness Consult date: 05/12/18 Requesting physician: Pawel Lmeus Consult reason: cp Chief complaint: cp History of present illness: Mr. Cowan is a 72 year old male ho CAD GA s/p RCA-CAITY 02/04/17, residual distal 80 % LAD, OM1 70%, EF 50%, diabetes, hyperlipidemia, hypertension C/o acute onset of epigastric dull pain waking up yesterday morning, at rest or with walking, non-positional or pleuritic, constant with intermittent fluctuation -03/09, no radiation, didn't feel similar to prior GA, lasting whole day, partial relief by NTG, by relieved by morphine, no CP now. No dyspnea , palpitations, syncope, dizziness, N/V. Doing well since stent untill this event. No prior similar episode. Hypertensive 160s-180s/80s-90s, but stated his BP usually fine. Not clear whether he has GERD or hiatal hernia. trop neg. ECG SR, old IMI Tele no events. Cr 1.3 05/11/18 Impressions: LVEF 50-55%. Normal LV chamber size and function. Mild concentric left ventricular hypertrophy. Mild left ventricular diastolic dysfunction. Atypical septal motion consistent with bundle branch block. Normal right ventricular structure and function. Unable to estimate RVSP due to lack of TR jet. No significant valvular dysfunction. 02/04/17 [facility] Impressions: There is severe one vessel coronary artery disease. There is mild LV Dysfunction EF 40-45% Patient had successful PTCA/Drug-Eluting Stent placement in the mid and distal RCA. Residual small vessel disease Coronary Dominance: right Lesion Findings/Interventions * Left Main Coronary Artery The LMCA is angiographically free of disease. * Left Anterior Descending There is a 40% stenosis in the Mid LAD. Proximal LAD 20% stenosis. There is a 80% stenosis in the distal LAD near the apex * Circumflex There is a 20% stenosis in the Mid Circumflex. There is a patent stent from a previous procedure There is a 70% stenosis in the mid 1st Marginal.The OM1 branch is tortuous and jailed in by previous circ stent. Vessel is small in size. Left to left collateral noted. * Right Coronary Artery There is a 50% instent stenosis in the Proximal RCA. There is a 16 mm long, 90% stenosis in the Mid RCA. The lesion has a HEATHER flow of 3. An intervention was performed on the Mid RCA with a final stenosis of 0%. There were no lesion complications. The final HEATHER flow was 3. There is a 16 mm long, 90% stenosis in the Distal RCA. The lesion has a HEATHER flow of 3. An intervention was performed on the Distal RCA with a final stenosis of 0%. There were no lesion complications. The final HEATHER flow was 3. Previous cardiac testing: -Last cath 12/14/14 with LVEF 45%, 20% stenosis mid LAD, very distal LAD small 70 % stenosis. Previous stent diagonal 1 with 100% in-stent stenosis that was not intervened on (small vessel), Mid circumflex stent patent, 70% stenosis 1st OM ( small vessel) the lesion had HEATHER flow 3. 80% in-stent restenosis in mid RCA and occluded distal RCA. PDA has collaterals which feed from left to right. -Echocardiogram 11/03/16 with LVEF 45-50%, mild global to low normal LV systollic function, evidence of moderate diastolic dysfunction of left ventricle, moderate concentric hypertrophy of left ventricle, mild mitral regurgitation, no pulmonary hypertension, all wall segments with normal motion. -Stress test 11/03/16 with perfusion imaging negative for ischemia, basal and mid inferior and inferolateral wall infarct. gated EF 46%, LV mildly dilated. Infarct also noted on stress 04/25/2014. Past Med Surg Social Fam HX - Past Medical History Medical history: coronary artery disease, diabetes, hyperlipidemia, hypertension , myocardial infarction Additional medical history: cardiac stents Psychiatric history: anxiety, depression - Past Surgical History Surgical History: angioplasty/stent Additional surgical history: carpal tunnel. 2-back surgeries - Social History Smoking Status: Current every day smoker Packs per day: 1/2 Smokeless Tobacco Status: No Alcohol use: none Drug use: none - Family History Mother Name: Carolin Cowan Family Member Ethnicity: Non- Living Status: Age at : 69 Cause of : CHF Hx Family Cardiac Disorders: Yes (CHF) Hx Family Endocrine Disorder: Yes (DM) Father Name: Prudencio Cowan Family Member Ethnicity: Non- Living Status: Age at : 76 Cause of : complications from heart disease DM and prostate cancer Hx Family Cardiac Disorders: Yes (HD) Hx Family Cancer: Yes (prostate cancer) Hx Family Endocrine Disorder: Yes (DM) Brother Name: Abhishek Cowan Family Member Ethnicity: Non- Living Status: Age at : 41 Cause of : CHF Hx Family Cardiac Disorders: Yes (CHF) Medications and Allergies Aspirin [Lo-Dose Aspirin EC] 81 mg PO DAILY 05/11/18 [History] Insulin Glargine [Lantus] 30 unit SQ BID 05/11/18 [History] Isosorbide MONOnitrate (24 HR) [Imdur] 30 mg PO DAILY 05/11/18 [History] Metoprolol [Lopressor] 25 mg PO BID 05/11/18 [History] Nitroglycerin [Nitrostat] 0.4 mg SL Q5M PRN MDD [id number] CALL 911 05/11/18 [ History] Paroxetine HCl [Paxil] 5 mg PO DAILY 05/11/18 [History] Prasugrel [Effient] 10 mg PO DAILY 05/11/18 [History] Ranolazine [Ranexa] 500 mg PO Q12H 05/11/18 [History] Simvastatin [Zocor] 40 mg PO HS 05/11/18 [History] 3 Allergy/AdvReac Type Severity Reaction Status Date / Time glimepiride AdvReac Diarrhea Verified 05/11/18 17:53 metformin AdvReac Diarrhea Verified 05/11/18 17:53 All Systems Review: The remainder of the systems were reviewed and are negative - Cardiovascular Cardiovascular: as per HPI - Gastrointestinal Gastrointestinal: no nausea - Psychiatric Psychiatric: anxiety - Hematological/Lymphatic Hematologic/Lymphatic: no easy bleeding Physical Examination Vital Signs, Last 4 Hours Temp Pulse Resp BP Pulse Ox 05/12/18 11:05 98.1 F 60 16 165/88 98 Other: General: NAD, AAO, cogent HEENT: anicteric Neck: no JVD, no bruits Chest: CTA B/L, no W/R/C, no tenderness Heart: RRR, S1/S2, no S3/S4, no M/G/R Abdominal: BS +, soft, ND, NT Peripheral Pulses: radial pulse 2+ B/L, DP 2+ B/L Skin/Extremities: no cyanosis, no LE edema Neurological: grossly non-focal. Results 05/11/18 15:35 05/11/18 15:35 Lab Results 05/11/18 05/12/18 22:27 04:38 Troponin I 0.03 0.03 - Imaging and Cardiology Echo: report reviewed Cardiac cath: report reviewed Other Results: Tele reviewed - EKG Interpretation EKG results cardiology: personally reviewed Consult Discharge Plan - Plan Referrals: Danny Parks DO [Primary Care Provider] -
--- NOTE | 2018-05-12 14:57 | Discharge Summary ---
- NOTES TO OUTPATIENT PROVIDER Notes to Outpatient Provider: PCP in 5 to 7 days Orders not resulted at time of discharge: Pending orders 05/12/18 11:32 NM rachel perf SPECT multi [NM] Routine 05/13/18 07:00 SP pharm nuclear stress Routine Date of Encounter: 05/12/18 Time of Encounter: 14:53 - Discharge Diagnosis (1) Acute chest pain Priority: Primary Status: Acute Assessment and Plan: atypical angina P: given ho PCI and residual disease in distal LAD and LCx, cardiology strongly recommending stress test, however, pt refuses and understand the risk of delay of management or KS if no stress test. Pt adamanty chooses going home without stress test and coming back if cp recures. f/u cardiology for an outpatient stress test, and pt agrees (2) Diabetes mellitus Priority: Secondary Status: Chronic Assessment and Plan: History of insulin-dependent diabetes mellitus Last hemoglobin A1c was 6.7 on 04/07/18 Cardiac ADA diet Continue home insulin regimen. Qualifiers: Diabetes mellitus type: type 2 Diabetes mellitus termite inspector insulin use: without termite inspector use Diabetes mellitus complication status: with unspecified complications Qualified Code(s): E11.8 - Type 2 diabetes mellitus with unspecified complications (3) Hypertension Priority: Secondary Status: Chronic Assessment and Plan: BP uncontrolled. On Imdur and lopressor. Metoprolol increased from 25 mg PO BID to 50 mg PO BID. Follow up out for BP monitoring. Qualifiers: Hypertension type: essential hypertension Qualified Code(s): I10 - Essential (primary) hypertension (4) CAD (coronary artery disease) Priority: Secondary Status: Chronic Assessment and Plan: ASA, efient, and statin Qualifiers: Coronary Disease-Associated Artery/Lesion type: [place] artery [place] vs. transplanted heart: [place] heart Associated angina: angina presence unspecified Qualified Code(s): I25.10 - Atherosclerotic heart disease of [place] coronary artery without angina pectoris (5) Prostate enlargement Priority: Secondary Status: Acute Assessment and Plan: Ct shows evidence of prostate enlargement last PSA in aug was 1.74 follow up with pcp for further evaluation. (6) Pulmonary nodule Priority: Secondary Status: Acute Assessment and Plan: CT showed two five mm nodules in the left upper lobe with interval growth from January 2018 hx of tobacco use will need repeat ct chest in 6 months (7) Renal mass Priority: Secondary Status: Acute Assessment and Plan: Ct showed 2.7 cm lesion in the inferior left kidney: solid mass plan: patient will need follow up imaging outpatient. Hospital course: Mr. Cowan is a 72 year old male - Time Spent with Patient Total time spent providing and/or coordinating discharge services: - Discharge Medications Home Medications: Aspirin [Lo-Dose Aspirin EC] 81 mg PO DAILY 05/11/18 [History] Insulin Glargine [Lantus] 30 unit SQ BID 05/11/18 [History] Isosorbide MONOnitrate (24 HR) [Imdur] 30 mg PO DAILY 05/11/18 [History] Nitroglycerin [Nitrostat] 0.4 mg SL Q5M PRN MDD [id number] CALL 911 05/11/18 [ History] Paroxetine HCl [Paxil] 5 mg PO DAILY 05/11/18 [History] Prasugrel [Effient] 10 mg PO DAILY 05/11/18 [History] Ranolazine [Ranexa] 500 mg PO Q12H 05/11/18 [History] Simvastatin [Zocor] 40 mg PO HS 05/11/18 [History] Metoprolol [Lopressor] 50 mg PO BID #30 tablet 05/12/18 [Rx] Allergies/Adverse Reactions: 3 Allergy/AdvReac Type Severity Reaction Status Date / Time glimepiride AdvReac Diarrhea Verified 05/11/18 17:53 metformin AdvReac Diarrhea Verified 05/11/18 17:53 Date of admission: 05/11/18 18:51 Primary care physician: Danny Parks DO Consults: 05/12/18 12:50 Consult to Cardiology [CONS] Routine Comment: Consulting Provider: Cardiology Kiarra Reason for Consult: chest pain Call Completed: Yes Discharging clinician: Sanjana Hernandez Anticipated date of discharge: 05/12/18 - Constitutional Vitals: Temp Pulse Resp BP Pulse Ox 98.1 F 60 16 165/88 98 05/12/18 11:05 05/12/18 11:05 05/12/18 11:05 05/12/18 11:05 05/12/18 11:05 General appearance: Present: A&O X 3, no acute distress Exam: . - Head Head exam: Present: atraumatic, normocephalic - Eye Eye exam: Present: PERRL, conjuntiva pink, sclera anicteric Pupils: Present: PERRL - Neck Neck exam general surgery: Present: supple, trachea midline. Absent: lymphadenopathy - Respiratory Respiratory exam: Present: CTAB. Absent: accessory muscle use, rales, rhonchi, wheezes - Cardiovascular Cardiovascular exam: Present: RRR, +S1, +S2. Absent: diastolic murmur, gallop, rubs, systolic murmur - GI/Abdominal GI/Abdominal exam: Present: normal bowel sounds, soft, no peritoneal signs. Absent: distended, tenderness - Extremities Exam Extremities exam: Present: warm, radial pulses palpable and symmetrical. Absent : calf tenderness, cyanotic, pedal edema - Neurological Exam Neurological exam: Present: CN II-XII intact, oriented X3, no focal deficits. Absent: pronater drift, facial droop, speech deficit - Skin Skin exam: Present: dry, intact - Patient Status Disposition: Home, Self-Care Condition: Fair Overall status at discharge: patient is back to baseline - Discharge Instructions Instructions: Angina (DC), Chest Pain (DC), Cigarette Smoking and Your Health ( GEN) Follow Up With: Danny Parks DO [Primary Care Provider] - - Diet and Activity Activity: increase activity as tolerated Diet: diabetic diet, low fat, low cholesterol, low salt diet
--- NOTE | 2018-05-12 18:01 | Electrocardiograph Report ---
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
== END 2018-05-12 16:03 | disposition home or self-care (01) ==
LOC: 3BNU 14:30 → EMEROOARM 14:30 → 3BNU 20:00
PROVIDERS: ADMIT Family Medicine; ATTEND Student in an Organized Health Care Education/Training Program

== ENCOUNTER 2018-09-04 12:30 | Observation (INO) ==
--- NOTE | 2018-09-04 12:43 | Emergency Department Note ---
GI Bleed HPI - General Time Seen by Provider: 09/04/18 12:39 - Related Data Home Medications Medication Instructions Recorded Confirmed Aspirin [Lo-Dose Aspirin EC] 81 mg PO DAILY 05/11/18 08/09/18 Insulin Glargine [Lantus] 30 unit SQ BID 05/11/18 08/09/18 Isosorbide MONOnitrate (24 HR) 60 mg PO DAILY 05/11/18 08/09/18 [Imdur] Nitroglycerin [Nitrostat] 0.4 mg SL Q5M PRN MDD [id number] CALL 05/11/18 08/09/18 911 Paroxetine HCl [Paxil] 5 mg PO DAILY 05/11/18 08/09/18 Prasugrel [Effient] 10 mg PO DAILY 05/11/18 08/09/18 Ranolazine [Ranexa] 1,000 mg PO Q12H 05/11/18 08/09/18 Simvastatin [Zocor] 40 mg PO HS 05/11/18 08/09/18 Previous Rx's Medication Instructions Recorded Metoprolol [Lopressor] 50 mg PO BID #30 tablet 05/12/18 Allergies Allergy/AdvReac Type Severity Reaction Status Date / Time glimepiride AdvReac Diarrhea Verified 08/09/18 08:17 metformin AdvReac Diarrhea Verified 08/09/18 08:17 Past Medical History - Past Medical History Medical history: Reports: coronary artery disease, diabetes, hyperlipidemia, hypertension, myocardial infarction Surgical history: Reports: angioplasty/stent Psychiatric history: Reports: anxiety, depression - Social History Smoking Status: Former smoker Smokeless Tobacco Status: No Alcohol use: Reports: none Drug use: Reports: none
[2018-09-04] MEDS ORDERED: Isovue-370 500 ML INFUS..BTL IV ONE (12:54)
--- NOTE | 2018-09-04 12:57 | Emergency Department Note ---
Disposition Clinical Impression: Near syncope, Bradycardia, CANDELARIO (acute kidney injury) Disposition: Admitted As Inpatient Condition: Fair Referrals: Danny Parks DO [Primary Care Provider] - Forms: ED Satisfaction Letter Time of Disposition: 16:55 General Adult HPI - General Chief complaint: ED Weakness Time Seen by Provider: 09/04/18 12:39 Source: patient, EMS Limitations: no limitations Nursing Notes Reviewed: Yes Vital Signs Reviewed: Yes - History of Present Illness HPI Narrative: Patient is a 72-year-old male presenting with lightheaded dizziness and near syncope. Patient has history of significant vascular pathology, including hypertension, hyperlipidemia CAD status post stenting and diabetes. Patient states that around 11:00 while he was at [employer], he became very lightheaded and dizzy with abdominal and back pain with significant diaphoresis. He describes t he abdominal and back pain to be sharp shooting in nature. He states he also has a headache currently. He notes that he became very lightheaded dizzy and felt as though his legs were very weak. He currently does have a 2 out of 10 back pain described as a dull ache to sharp shooting component as well as abdominal pain that is in the middle of his abdomen. He denies current chest pain, shortness of breath, nausea or vomiting. He denies history of a abdominal aortic aneurysm. No recent other falls or injury. He states that when EMS arrived, they checked his blood glucose and it was noted to be in the 200s. Pain Scale: 2 - Related Data Home Medications Medication Instructions Recorded Confirmed Aspirin [Lo-Dose Aspirin EC] 81 mg PO DAILY 05/11/18 09/04/18 Insulin Glargine [Lantus] 30 unit SQ BID 05/11/18 09/04/18 Isosorbide MONOnitrate (24 HR) 60 mg PO DAILY 05/11/18 09/04/18 [Imdur] Nitroglycerin [Nitrostat] 0.4 mg SL Q5M PRN 05/11/18 09/04/18 Paroxetine HCl [Paxil] 5 mg PO DAILY 05/11/18 09/04/18 Prasugrel [Effient] 10 mg PO DAILY 05/11/18 09/04/18 Ranolazine [Ranexa] 1,000 mg PO Q12H 05/11/18 09/04/18 Simvastatin [Zocor] 40 mg PO HS 05/11/18 09/04/18 Previous Rx's Medication Instructions Recorded Metoprolol [Lopressor] 50 mg PO BID #30 tablet 05/12/18 Allergies Allergy/AdvReac Type Severity Reaction Status Date / Time glimepiride AdvReac Diarrhea Verified 08/09/18 08:17 metformin AdvReac Diarrhea Verified 08/09/18 08:17 All systems ED: reviewed and negative except as stated. Review of Systems: As Per HPI Constitutional: Denies: fever, chills ENT ED: Denies: congestion Cardiovascular: Denies: chest pain, palpitations, dyspnea on exertion, syncope Respiratory: Denies: cough, dyspnea, wheezes Gastrointestinal: Reports: abdominal pain. Denies: nausea, vomiting, diarrhea, hematemesis, melena, hematochezia Genitourinary: Denies: dysuria Musculoskeletal: Reports: back pain Integumentary: Denies: rash Neurological: Reports: headache. Denies: weakness, numbness, paresthesias, confusion Psychiatric: Denies: anxiety Endocrine: Reports: fatigue Past Medical History - Past Medical History Medical history: Reports: coronary artery disease, diabetes, hyperlipidemia, hypertension, myocardial infarction Surgical history: Reports: angioplasty/stent Psychiatric history: Reports: anxiety, depression - Social History Smoking Status: Former smoker Smokeless Tobacco Status: No Alcohol use: Reports: none Drug use: Reports: none Physical Exam - General Limitations: no limitations General appearance: alert - Head Head exam: atraumatic, normocephalic, normal inspection - Eye Eye exam: Present: normal appearance, PERRL, EOMI - ENT ENT exam: normal exam, normal oropharynx, mucous membranes moist - Neck Neck exam: Present: normal inspection, full ROM, trachea midline - Chest Chest inspection: Present: normal inspection, symmetric chest wall rise - Respiratory Respiratory exam: Present: normal lung sounds bilaterally. Absent: respiratory distress, wheezes - Cardiovascular Cardiovascular exam: Present: normal rhythm, bradycardia - Abdominal Exam Abdominal exam: Present: soft, tenderness (Tenderness to the mid abdomen, no guarding or rebound). Absent: distention, guarding, rebound, rigidity - Extremities Exam Extremities exam: Present: normal inspection, full ROM, normal capillary refill. Absent: tenderness, pedal edema - Expanded Lower Extremity Exam Neurovascular/Tendon exam: Absent: motor deficit, sensory deficit, tendon deficit - Back Exam Back exam: Present: normal inspection, full ROM. Absent: tenderness (No tenderness to palpation in the midline thoracic or lumbar spine) - Neurological Exam Neurological exam: Present: alert, oriented X3, CN II-XII intact - Psychiatric Psychiatric exam: Present: normal affect, normal mood - Skin Skin exam: Present: warm, dry, intact, normal color. Absent: rash, cyanosis, diaphoresis Course Vital Signs Temperature 97.5 F L 09/04/18 12:39 Pulse Rate 46 09/04/18 12:39 Respiratory Rate 16 09/04/18 12:39 Blood Pressure 125/75 09/04/18 12:39 O2 Sat by Pulse Oximetry 97 09/04/18 12:39 Temperature 97.5 F L 09/04/18 12:39 Pulse Rate 56 09/04/18 16:34 Respiratory Rate 16 09/04/18 16:34 Blood Pressure 140/84 09/04/18 16:34 O2 Sat by Pulse Oximetry 98 09/04/18 16:34 Oxygen Delivery Oxygen Delivery Room Air Medical Decision Making - MDM Narrative Medical decision making narrative: Patient is a 72-year-old male who presents with near-syncopal episode. On arrival, patient is bradycardic, however states that he is on metoprolol and this is his baseline. On arrival with EMS POC glucose was obtained and in the 200s. Repeat POC glucose was obtained and it was 191. Patient currently complaining of abdomen and back pain. He continues to have slight lightheaded and dizziness. EKG was performed which shows sinus bradycardia with a ventricular rate of 47, NC is prolonged at 229, no dropped beats, left axis deviation, LVH is noted. No ST elevation or depression, there is T wave inversion in 1 and aVL as well as V4, V5 and V6. In comparison to old EKG performed in July 2018 these are all unchanged from previous. Patient is normotensive. Pulses are intact on examination he is neurovascularly intact. CBC is unremarkable, BMP does show slightly elevated creatinine 1.48. Suggesti ve of CANDELARIO, patient was given fluids. CTA of the chest, abdomen and pelvis were performed, head and neck. No acute dissection is noted. There is chronic vessel changes with a thrombus noted to the common iliac artery on the left resulting in stenosis. Patient will be admitted for further seem to be workup. Patient and family and her are in agreement with disposition. - Medical Records Medical records reviewed: Yes I reviewed the patient's medical records. - Lab Data Lab results reviewed: Yes I reviewed the patient's lab results. Result diagrams: 09/04/18 13:00 09/04/18 13:00 Lab Results 09/04/18 09/04/18 09/04/18 Range/Units 12:52 13:00 13:00 WBC 6.7 (4.3-11.1) K/mcL RBC 5.24 (4.19-5.50) M/mcL Hgb 15.9 (12.9-16.9) g/dL Hct 44.1 (37.5-50.1) % MCV 84.2 (83.0-100.0) fL MCH 30.3 (28.0-33.3) pg MCHC 36.1 H (31.6-35.5) g/dL RDW 13.2 (11.5-14.5) % Plt Count 275 (140-400) K/mcL MPV 10.1 (9.4-12.4) fL Immature Gran % 1.2 (0-4) % Seg Neutrophils % 48.0 % Lymphocytes % 32.9 % Monocytes % 9.7 % Eosinophils % 7.3 % Basophils % 0.9 % Neutrophils # 3.2 (1.6-8.9) K/mcL Lymphocytes # 2.2 (0.6-4.6) K/mcL Monocytes # 0.7 (0.0-1.3) K/mcL Eosinophils # 0.5 (0.0-0.6) K/mcL Basophils # 0.1 (0.0-0.2) K/mcL Sodium 135 L (136-145) mEq/L Potassium 4.6 (3.5-5.1) mEq/L Chloride 103 (98-107) mEq/L Carbon Dioxide 25 (23-29) mEq/L BUN 12 (8-23) mg/dL Creatinine 1.49 H (0.70-1.30) mg/dL Est GFR ( Amer) 56 L (> 60) Est GFR (Non-Af Amer) 46 L (> 60) BUN/Creatinine Ratio 8 (6-26) Glucose 220 H (70-105) mg/dL POC Glucose 191 H (70-99) mg/dL Calculated Osmolality 287 (280-300) Calcium 9.3 (8.6-10.3) mg/dL Total Bilirubin 0.6 (0.3-1.0) mg/dL Direct Bilirubin 0.1 (0.0-0.2) mg/dL Indirect Bilirubin 0.5 (0.0-1.2) mg/dL AST 12 L (13-39) Units/L ALT 10 (7-52) Units/L Alkaline Phosphatase 87 (34-104) Units/L Troponin I 0.03 (< 0.04) ng/mL Serum Total Protein 7.0 (6.4-8.9) g/dL Albumin 3.9 (3.5-5.7) g/dL Globulin 3.1 (2.4-3.5) g/dL Albumin/Globulin Ratio 1.3 (1.1-2.2) Lipase 15 (11-82) Units/L - Radiology Data Radiology results reviewed: Yes I reviewed the patient's radiology results. Head CTA 09/04/18 12:54 IMPRESSION: Unremarkable CTA of the head and neck. D/ / 09/04/2018 16:09:29 Sundeep Evans MD / clarisse Interpreting Provider: Sundeep Evans MD Neck CTA 09/04/18 12:54 IMPRESSION: Unremarkable CTA of the head and neck. D/ / 09/04/2018 16:09:29 Sundeep Evans MD / clarisse Interpreting Provider: Sundeep Evans MD CT Dissection 09/04/18 12:56 IMPRESSION: No evidence for aortic aneurysm. 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 The stenosis measures at least 50%. 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 Postsurgical changes from prior ablation of the left kidney. D/ / 09/04/2018 15:36:50 Mazin Kendall MD / rebecca Interpreting Provider: Mazin Kendall MD Critical Care Time Critical Care Time: Yes Total Critical Care Time: 35 Attestation: 35 minutes managing patient's complaint of near syncope and candelario. S.BRosey - Paty Situation: Demographics, MOA Background: Presenting Complaint, Relevant PMH, Meds, & Allergies Assessment: Vital Signs, Course and respsone to treatment, Exam Concerns, Patient/Family Expectation, Pertinant Lab Results, Outstanding Labs Recommendation: Barrier(s) to disposition, Recommendation based on pending studies, treatments, or consults Paty Report Given to: hospitalist Paty Repor Time: 16:55 (accepted) Attestation Statement - Attestation Attestation: Patient was seen with resident physician. I reviewed the history, physical, assessment and plan, and agree with the findings. I also personally evaluated this patient and had [id number] time with this patient. 72-year-old male had a near syncopal event while attending [employer]. Patient states that he developed back and abdominal pain that was sharp in nature diaphoresis and nearly passed out. Has a history of vascular disease and also has a history of bradycardia. Patient states that he is on metoprolol and his heart rate is usually in the upper 40s to low 50s. Currently says he feels ge neralized weakness but no focal complaints. Review systems as above remainder negative. Physical exam vital signs bradycardic otherwise stable. ENT is unremarkable. Heart regular rhythm and rate. Lungs clear. Abdomen soft nontender. Extremities unremarkable. Neurologically intact. Skin no rashes. Psych normal. ED course we will get a need to do a syncope workup including head and neck CTA we will also get chest and abdomen to make sure he does not have an aneurysm somewhere. Patient will be admitted to the hospitalist service for further evaluation and treatment. Hemodynamically he remained stable but bradycardic while in the emergency department. Workup did not reveal any significant abnormalities. Hemodynamically he was stable while in the emergency department. Critical care time 35 minutes. Hospitalist service was notified and admission was arranged. I agree with the resident physician assessment and plan.
[2018-09-04 13:20] LABS: Basophils # 0.1 K/mcL (0.0-0.2); Basophils % 0.9 %; Eosinophils # 0.5 K/mcL (0.0-0.6); Eosinophils % 7.3 %; Hematocrit 44.1 % (37.5-50.1); Hemoglobin 15.9 g/dL (12.9-16.9); Immature Granulocytes % 1.2 % (0-4); Lymphocytes # 2.2 K/mcL (0.6-4.6); Lymphocytes % 32.9 %; Mean Corpuscular HGB Conc 36.1 g/dL (31.6-35.5); Mean Corpuscular Hemoglobin 30.3 pg (28.0-33.3); Mean Corpuscular Volume 84.2 fL (83.0-100.0); Mean Platelet Volume 10.1 fL (9.4-12.4); Monocytes # 0.7 K/mcL (0.0-1.3); Monocytes % 9.7 %; Neutrophils # 3.2 K/mcL (1.6-8.9); Platelet Count 275 K/mcL (140-400); Red Blood Count 5.24 M/mcL (4.19-5.50); Red Cell Distribution Width 13.2 % (11.5-14.5)
[2018-09-04] MEDS ORDERED: 0.9 % Sodium Chloride 500 ML IVC ONE ×2 (13:24→14:16)
[2018-09-04 13:40] LABS: Troponin I 0.03 ng/mL (< 0.04)
[2018-09-04 13:43] LABS: Albumin 3.9 g/dL (3.5-5.7); Albumin/Globulin Ratio 1.3 (1.1-2.2); Bilirubin,Direct 0.1 mg/dL (0.0-0.2); Bilirubin,Indirect 0.5 mg/dL (0.0-1.2); Bilirubin,Total 0.6 mg/dL (0.3-1.0); Calcium 9.3 mg/dL (8.6-10.3); Globulin 3.1 g/dL (2.4-3.5); Potassium 4.6 mEq/L (3.5-5.1)
[2018-09-04] MEDS ORDERED: Acetaminophen 325 MG TABLET PO PRN (18:28)
[2018-09-04] MEDS ORDERED: Naloxone 0.4 MG/ML INJ IVP PRN (18:28)
[2018-09-04] MEDS ORDERED: *HR* Dextrose 50 % in Water (Syg) 50 ML SYRINGE IVP PRN (18:32)
[2018-09-04] MEDS ORDERED: Dextrose Gel 15 GM/37.5 ML TUBE PO PRN ×2 (18:32)
[2018-09-04] MEDS ORDERED: D5% in Water 1,000 ML IVC PRN (18:32)
[2018-09-04] MEDS ORDERED: Nitroglycerin 0.4 MG TAB.SUBL SL PRN (18:33)
--- NOTE | 2018-09-04 18:43 | Internal Med History&Physical ---
Date of Encounter: 09/04/18 Time of Encounter: 17:00 Internal Medicine - H&P: HPI Chief complaint: Diaphoresis Admitted From: Home Plans for Post Hospital Care: Home History of present illness: Mr. Cowan is a 72 year old male sent to ER by EMS because of diaphoresis. Past medical history is significant for diabetes, CAD S/P stent, renal cyst, hypertension, PVD. Patient said around 11:30 AM he feel back and leg pain and sit there. He suddenly feel weakness and diaphoresis. Patient denies loss of consciousness or dizziness. He denies nausea vomiting, or chest pain, or shortness of breath. Patient denies abdominal pain or diarrhea. Patient denies recent sick. He has no fever. Patient denies feeling of hungry. EMS was called, when EMS comes, he was found bradycardia with heart rates at 40s. His glucose level is at 200s. Patient was brought to ER and was found BP is normal, heart rate 46. He was given IV fluid and his symptoms has improved, lasted about one hour. Patient was admitted for further management. Past Med Surg Social Fam HX - Past Medical History Medical history: coronary artery disease, diabetes, hyperlipidemia, hypert ension, myocardial infarction Additional medical history: cardiac stents Psychiatric history: anxiety, depression - Past Surgical History Surgical History: angioplasty/stent Additional surgical history: carpal tunnel. 2-back surgeries - Social History Smoking Status: Former smoker Smokeless Tobacco Status: No Alcohol use: none Drug use: none - Family History Mother Family Member Ethnicity: Non- Living Status: Hx Family Cardiac Disorders: Yes (CHF) Hx Family Endocrine Disorder: Yes (DM) Father Family Member Ethnicity: Non- Living Status: Hx Family Cardiac Disorders: Yes (HD) Hx Family Cancer: Yes (prostate cancer) Hx Family Endocrine Disorder: Yes (DM) Brother Family Member Ethnicity: Non- Living Status: Hx Family Cardiac Disorders: Yes (CHF) Internal Medicine - H&P: Meds Aspirin [Lo-Dose Aspirin EC] 81 mg PO DAILY 05/11/18 [History] Insulin Glargine [Lantus] 30 unit SQ BID 05/11/18 [History] Isosorbide MONOnitrate (24 HR) [Imdur] 60 mg PO DAILY 05/11/18 [History] Nitroglycerin [Nitrostat] 0.4 mg SL Q5M PRN 05/11/18 [History] Paroxetine HCl [Paxil] 5 mg PO DAILY 05/11/18 [History] Prasugrel [Effient] 10 mg PO DAILY 05/11/18 [History] Ranolazine [Ranexa] 1,000 mg PO Q12H 05/11/18 [History] Simvastatin [Zocor] 40 mg PO HS 05/11/18 [History] Metoprolol [Lopressor] 50 mg PO BID #30 tablet 05/12/18 [Rx] Allergy/AdvReac Type Severity Reaction Status Date / Time glimepiride AdvReac Diarrhea Verified 08/09/18 08:17 metformin AdvReac Diarrhea Verified 08/09/18 08:17 All Systems PM: A 10-system review of systems was performed and is negative for pertinent findings except as documented above in the HPI. - Constitutional Vitals: Temp Pulse Resp BP Pulse Ox 97.5 F L 56 16 140/84 98 09/04/18 12:39 09/04/18 16:34 09/04/18 16:34 09/04/18 16:34 09/04/18 16:34 Exam: Pt is AAO x 3, in NAD HEENT: NC/AT, PERRL Neck: Supple, no JVD, no LAD Lungs: CTA b/l Heart: S1S2, RRR Abd: Soft, nontender, BS present Ext: ROM wnl, no pedal edema Neuro: No focal deficit Internal Med - H&P Results - Labs CBC & Chem 7: 09/04/18 13:00 09/04/18 13:00 Labs: Short CBC 09/04/18 Range/Units 13:00 WBC 6.7 (4.3-11.1) K/mcL Hgb 15.9 (12.9-16.9) g/dL Hct 44.1 (37.5-50.1) % Plt Count 275 (140-400) K/mcL Neutrophils # 3.2 (1.6-8.9) K/mcL BMP 09/04/18 13:00 Sodium 135 L Potassium 4.6 Chloride 103 Carbon Dioxide 25 BUN 12 Creatinine 1.49 H Glucose 220 H Calcium 9.3 Cardiac Enzymes 09/04/18 Range/Units 13:00 Troponin I 0.03 (< 0.04) ng/mL Liver Function 09/04/18 Range/Units 13:00 Total Bilirubin 0.6 (0.3-1.0) mg/dL Direct Bilirubin 0.1 (0.0-0.2) mg/dL AST 12 L (13-39) Units/L ALT 10 (7-52) Units/L Alkaline Phosphatase 87 (34-104) Units/L Albumin 3.9 (3.5-5.7) g/dL - Impressions ITS Impressions Head CTA 09/04/18 12:54 IMPRESSION: Unremarkable CTA of the head and neck. D/ / 09/04/2018 16:09:29 Sundeep Evans MD / clarisse Interpreting Provider: Sundeep Evans MD Neck CTA 09/04/18 12:54 IMPRESSION: Unremarkable CTA of the head and neck. D/ / 09/04/2018 16:09:29 Sundeep Evans MD / clarisse Interpreting Provider: Sundeep Evans MD CT Dissection 09/04/18 12:56 IMPRESSION: No evidence for aortic aneurysm. 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 The stenosis measures at least 50%. 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 Postsurgical changes from prior ablation of the left kidney. D/ / 09/04/2018 15:36:50 Mazin Kendall MD / rebecca Interpreting Provider: Mazin Kendall MD - Assessment and plan (1) Diaphoresis Current Visit: Yes Status: Acute Assessment and plan: Etiology is undetermined. Patient was found bradycardia when EMS arrives. Suspect symptomatic bradycardia. - Patient had CTA neck and head in ER, unremarkable - Recent echo (05/11/18) shows EF 50-55%, no valve dysfunction - Place patient on continuous cardiac monitoring, hold beta fredy - Orthostatic vitals - Consult cardiology (2) CANDELARIO (acute kidney injury) Current Visit: Yes Status: Acute Assessment and plan: Creatinine level is a little bit higher than baseline. Patient has IV fluid in the emergency room, will encourage by mouth hydration. Avoid nephrotoxic medications, repeat renal function in a.m. (3) Bradycardia Current Visit: Yes Status: Acute Assessment and plan: As above (4) DVT prophylaxis Current Visit: No Status: Acute Assessment and plan: Heparin subcutaneously (5) CAD (coronary artery disease) Current Visit: No Status: Chronic Assessment and plan: Denies chest pain. Continue home medication aspirin, Effient, imdur, and statin. Hold metoprolol because of bradycardia. Qualifiers: Coronary Disease-Associated Artery/Lesion type: [place] artery [place] vs. transplanted heart: [place] heart Associated angina: angina presence unspecified Qualified Code(s): I25.10 - Atherosclerotic heart disease of [place] coronary artery without angina pectoris (6) Diabetes mellitus Current Visit: No Status: Chronic Assessment and plan: Continue basal and sliding scale insulin coverage Qualifiers: Diabetes mellitus type: type 2 Diabetes mellitus director long term care insulin use: without intermediate use Diabetes mellitus complication status: with unspecified complications Qualified Code(s): E11.8 - Type 2 diabetes mellitus with unspecified complications (7) Hypertension Current Visit: No Status: Chronic Assessment and plan: BP is normal at this point. Continue home medications Qualifiers: Hypertension type: essential hypertension Qualified Code(s): I10 - Essential (primary) hypertension (8) Iliac artery stenosis, left Current Visit: Yes Status: Acute Assessment and plan: CTA in ER shows iliac artery stenosis with occlusion of internal iliac artery of left side. Patient has a history of PVD and saw Dr. Veliz as outpatient. - Called on-call vascular surgery consult Dr Arguello, founding by CTA is chronic, no immediate treatment needed, advice continue follow-up as outpatient. - Time Spent With Patient Total time spent is greater than 50% in coordination of care (as documented) at patient's floor/unit and/or counseling patient:40 minutes Greater than 35 minutes
[2018-09-04] MEDS ORDERED: Insulin LISPRO 300 UNITS/3 ML VIAL SQ SCH (21:00)
[2018-09-04] MEDS: Ranolazine 500 MG TAB.ER.12H PO SCH (21:17)
[2018-09-04] MEDS: Insulin DETEMIR 100 UNIT/ML X5UNITS SQ SCH (21:21)
[2018-09-05] MEDS ORDERED: *HR* Heparin 5,000 UNIT/ML VIAL SQ SCH (06:00)
[2018-09-05] MEDS: Ranolazine 500 MG TAB.ER.12H PO SCH (06:52)
[2018-09-05 07:23] LABS: Basophils # 0.1 K/mcL (0.0-0.2); Basophils % 0.7 %; Eosinophils # 0.5 K/mcL (0.0-0.6); Eosinophils % 6.3 %; Hematocrit 42.6 % (37.5-50.1); Hemoglobin 14.9 g/dL (12.9-16.9); Immature Granulocytes % 0.7 % (0-4); Lymphocytes # 2.5 K/mcL (0.6-4.6); Lymphocytes % 29.5 %; Mean Corpuscular Hemoglobin 29.4 pg (28.0-33.3); Mean Platelet Volume 9.9 fL (9.4-12.4); Monocytes # 0.8 K/mcL (0.0-1.3); Monocytes % 9.8 %; Neutrophils # 4.5 K/mcL (1.6-8.9); Platelet Count 248 K/mcL (140-400); Red Blood Count 5.07 M/mcL (4.19-5.50)
[2018-09-05 07:41] LABS: BUN/Creatinine Ratio 10 (6-26); Blood Urea Nitrogen 12 mg/dL (8-23); Carbon Dioxide 24 mEq/L (23-29); Chloride 107 mEq/L (98-107); Glucose 80 mg/dL (70-105); Magnesium 1.8 mg/dL (1.6-2.6); Osmolality,Calculated 285 (280-300); Potassium 3.7 mEq/L (3.5-5.1); Sodium 138 mEq/L (136-145); eGFR For Non-African Americans 57 (> 60)
[2018-09-05] MEDS: Insulin LISPRO 300 UNITS/3 ML VIAL SQ SCH ×2 (08:19→12:05)
[2018-09-05] MEDS: Insulin DETEMIR 100 UNIT/ML X5UNITS SQ SCH (08:33)
[2018-09-05 08:38] LABS: Thyroid Stimulating Hormone 0.704 mcIU/mL (0.340-5.600)
[2018-09-05] MEDS ORDERED: Isosorbide MONOnitrate (24 HR) 60 MG TAB.ER.24H PO SCH (09:00)
[2018-09-05] MEDS ORDERED: Aspirin Enteric Coated 81 MG Tablet PO SCH (09:00)
[2018-09-05 11:55] VITALS: BP 152/63
--- NOTE | 2018-09-05 13:02 | Cardiology Consult Note ---
<Braulio Jose R - Last Filed: 09/05/18 13:34> Date of Encounter: 09/05/18 Time of Encounter: 13:00 Assessment and Plan (1) Bradycardia Status: Acute Per Cardiology: ECHO: 05/2018: Impressions: LVEF 50-55%. Normal LV chamber size and function. Mild concentric left ventricular hypertrophy. Mild left ventricular diastolic dysfunction. Atypical septal motion consistent with bundle branch block. Normal right ventricular structure and function. Unable to estimate RVSP due to lack of TR jet. No significant valvular dysfunction. Left Ventricular Wall Motion: Rest Echo Findings All wall segments showed normal motion. On beta fredy therapy of Lopressor 50 mg by mouth twice a day for his known CAD. Heart rates typically running in the 50s. Beta fredy currently on hold. Discussed with patient and family agreeable to attempt Lopressor 25 mg by mouth twice a day and monitor heart rate and blood pressure home and follow-up in outpatient setting. Labs electrolytes stable. Discussed and reviewed with Dr. Murray, cardiology will sign off, reconsult as needed, follow-up arranged. (2) CAD (coronary artery disease) Status: Chronic Per Cardiology: Denies any chest pain. Troponin negative 1. Known history of CAD with last heart catheterization January 2017 with mid LAD 40%, proximal LAD 20%, distal LAD 80%, mid circumflex 20%, OM1 mid 70% with OM1 branch torturous and jailed by previous circumflex stent and vessel small in size with left to left collaterals, proximal RCA 50% in-stent restenosis, underwent PTCA/drug-eluting stent to mid RCA 90% and PTCA/drug-eluting stent to distal RCA 90% lesions. Patient agreeable to continue to monitor and will evaluate an outpatient setting potential for further stress testing if clinically appropriate. On aspirin, statin, long-acting nitrate, ARB, Effient, Ranexa. We will resume lower dose of beta fredy. Qualifiers: Coronary Disease-Associated Artery/Lesion type: [place] artery [place] vs. tr ansplanted heart: [place] heart Associated angina: angina presence unspecified Qualified Code(s): I25.10 - Atherosclerotic heart disease of [place] coronary artery without angina pectoris Discussion w patient/family: The assessment and plan as outlined above was discussed with the patient and/or family members who expressed understanding and agreement. All questions were answered. Thank you for involving us in the care of your patient. Please call with any questions. History of Present Illness Consult date: 09/05/18 Consult reason: Bradycardia Chief complaint: Weakness History of present illness: Mr. Cowan is a 72 year old male with a relevant past medical history of CAD, hypertension, hyperlipidemia, depression, nicotine abuse, DM 2, GERD. Cardiology consult for episode of diaphoresis with near syncope. Patient seen with family at bedside. He reports he was at a in a receiving line standing for long period of time when he developed weakness. Family reports slight incoherent speech. Denied any facial drooping, fall, loss of consciousness. Reports broke out in a sweat. He did indicate he took his diabetes medications that morning, however did not eat much food. Prior to event he denied any chest pain or palpitations. Denies any new concerns or complaints since last cardiology visit 1 month ago up to this episode. He denies any recent infectious process, denies any fever, chills, nausea, vomiting, diarrhea. Reports heart rates at home have been running in the low 50s and currently taking Lopressor 50 mg by mouth twice a day. Past Med Surg Social Fam HX - Past Medical History Attestation: Yes The following information was validated with the patient. Source: patient, old records reviewed Medical history: coronary artery disease, diabetes, hyperlipidemia, hypertension, myocardial infarction Additional medical history: cardiac stents Psychiatric history: anxiety, depression - Past Surgical History Surgical History: angioplasty/stent Additional surgical history: carpal tunnel. 2-back surgeries - Social History Smoking Status: Former smoker Smokeless Tobacco Status: No Alcohol use: none Drug use: none - Family History Mother Family Member Ethnicity: Non- Living Status: Hx Family Cardiac Disorders: Yes (CHF) Hx Family Endocrine Disorder: Yes (DM) Father Family Member Ethnicity: Non- Living Status: Cause of : prostate cancer Hx Family Cardiac Disorders: Yes (HD) Hx Family Cancer: Yes (prostate cancer) Hx Family Endocrine Disorder: Yes (DM) Brother Family Member Ethnicity: Non- Living Status: Still Living Hx Family Cardiac Disorders: Yes Medications and Allergies Aspirin [Lo-Dose Aspirin EC] 81 mg PO DAILY 05/11/18 [History] Insulin Glargine [Lantus] 30 unit SQ BID 05/11/18 [History] Isosorbide MONOnitrate (24 HR) [Imdur] 60 mg PO DAILY 05/11/18 [History] Nitroglycerin [Nitrostat] 0.4 mg SL Q5M PRN 05/11/18 [History] Paroxetine HCl [Paxil] 5 mg PO DAILY 05/11/18 [History] Prasugrel [Effient] 10 mg PO DAILY 05/11/18 [History] Ranolazine [Ranexa] 1,000 mg PO Q12H 05/11/18 [History] Simvastatin [Zocor] 40 mg PO HS 05/11/18 [History] Losartan [Cozaar] 12.5 mg PO DAILY 60 Days #30 tablet 09/05/18 [Rx] Metoprolol [Lopressor] 25 mg PO BID 30 Days #60 tablet 09/05/18 [Rx] Allergy/AdvReac Type Severity Reaction Status Date / Time glimepiride AdvReac Diarrhea Verified 08/09/18 08:17 metformin AdvReac Diarrhea Verified 08/09/18 08:17 All Systems Review: The remainder of the systems were reviewed and are negative - Constitutional Constitutional: weakness - Cardiovascular Cardiovascular: as per HPI, diaphoresis, lightheadedness Physical Examination Vital Signs, Last 4 Hours Temp Pulse Resp BP Pulse Ox 09/05/18 11:54 97.8 F 52 18 152/63 97 General: Conversant, No Apparent Distress HEENT: Atraumatic, Normocephaly, Mucus Membranes Moist Neck: No JVD, Normal carotid pulses Cardiac: Reg Rate and Rhythm, Normal S1 and S2, No Murmur Lungs: Normal Breath Sounds, No Wheeze, Rales, Rhonchi Neuro: Alert and responsive, No focal deficits noted Abdomen: Soft, Non-Tender Skin: No rashes noted on visualized skin Musculoskeletal: No Chest Wall Tenderness Extremities: No Clubbing, No Cyanosis, No Edema, Normal Pulses Results 09/05/18 07:04 09/05/18 07:04 Lab Results Laboratory Tests 09/04/18 09/05/18 09/05/18 13:00 07:04 07:04 Hgb 14.9 Hct 42.6 Creatinine 1.24 Est GFR (Non-Af Amer) 57 L Magnesium 1.8 AST 12 L ALT 10 Troponin I 0.03 TSH 0.704 ITS Impressions Head CTA 09/04/18 12:54 IMPRESSION: Unremarkable CTA of the head and neck. D/ / 09/04/2018 16:09:29 Sundeep Evans MD / clarisse Interpreting Provider: Sundeep Evans MD Neck CTA 09/04/18 12:54 IMPRESSION: Unremarkable CTA of the head and neck. D/ / 09/04/2018 16:09:29 Sundeep Evans MD / clarisse Interpreting Provider: Sundeep Evans MD CT Dissection 09/04/18 12:56 IMPRESSION: No evidence for aortic aneurysm. 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 The stenosis measures at least 50%. 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 Postsurgical changes from prior ablation of the left kidney. D/ / 09/04/2018 15:36:50 Mazin Kendall MD / rebecca Interpreting Provider: Mazin Kendall MD Active Medications Acetaminophen (Tylenol) 650 mg PO Q6HR PRN PRN Reason: Mild Pain/Fever Stop: 03/06/19 18:29 Aspirin (Aspirin Ec) 81 mg PO DAILY [facility] Stop: 03/07/19 09:01 Last Admin: 09/05/18 08:32 Dose: 81 mg Dextrose/Water (Dextrose 50% (Syg)) 25 ml IVP AD PRN PRN Reason: Hypoglycemia Stop: 03/06/19 18:33 Glucagon (Glucagen) 1 mg IM ONCE PRN PRN Reason: Hypoglycemia Stop: 03/06/19 18:33 Glucose (Gluctose) 15 gm PO ONCE PRN PRN Reason: Hypoglycemia Stop: 03/06/19 18:33 Glucose (Gluctose) 30 gm PO ONCE PRN PRN Reason: Hypoglycemia Stop: 03/06/19 18:33 Heparin Sodium (Porcine) (Heparin) 5,000 unit SQ Q12HCO [facility] Stop: 03/07/19 06:01 Last Admin: 09/05/18 06:06 Dose: 5,000 unit Dextrose (Dextrose 5%) 1,000 mls @ 100 mls/hr IVC .Q10H PRN PRN Reason: HYPOGLYCEMIA Stop: 03/06/19 18:33 Insulin Detemir (Levemir) 20 unit SQ BID [facility] Stop: 03/06/19 21:01 Last Admin: 09/05/18 08:33 Dose: 20 unit Insulin Human Lispro (Humalog) 0 units SQ HS [facility]; Protocol Stop: 03/06/19 21:01 Last Admin: 09/04/18 21:17 Dose: 3 units Insulin Human Lispro (Humalog) 0 units SQ TIDAC [facility]; Protocol Stop: 03/07/19 07:31 Last Admin: 09/05/18 12:05 Dose: Not Given Isosorbide Mononitrate (Imdur) 60 mg PO DAILY [facility] Stop: 03/07/19 09:01 Last Admin: 09/05/18 08:32 Dose: 60 mg Losartan Potassium (Cozaar) 25 mg PO DAILY [facility]; Protocol Stop: 03/07/19 11:16 Last Admin: 09/05/18 12:04 Dose: 25 mg Naloxone HCl (Narcan) 0.4 mg IVP Q2MIN PRN PRN Reason: SEE COMMENTS Stop: 03/06/19 18:29 Nitroglycerin (Nitroglycerin) 0.4 mg SL Q5MIN PRN PRN Reason: Chest pain Stop: 03/06/19 18:34 Paroxetine HCl (Paxil) 5 mg PO DAILY [facility] Stop: 03/07/19 09:01 Last Admin: 09/05/18 08:31 Dose: 5 mg Prasugrel (Effient) 10 mg PO DAILY [facility] Stop: 03/07/19 09:01 Last Admin: 09/05/18 08:31 Dose: 10 mg Ranolazine (Ranexa) 1,000 mg PO Q12H [facility] Stop: 03/06/19 18:46 Last Admin: 09/05/18 06:52 Dose: 1,000 mg Simvastatin (Zocor) 40 mg PO [facility]; Protocol Stop: 03/06/19 21:01 Last Admin: 09/04/18 21:17 Dose: 40 mg - Imaging and Cardiology Echo: report reviewed Cardiac cath: report reviewed - EKG Interpretation EKG results cardiology: personally reviewed (Sinus rhythm in the 60s), normal ECG, sinus rhythm, no diagnostic ischemia, other (Telemetry reviewed with average heart rate past 12 hours 57, currently sinus rhythm in the 60s.) Consult Discharge Plan - Plan Instructions: Metoprolol (By mouth), Losartan (By mouth), Syncope (DC), Peripheral Vascular Disorders (DC), Bradycardia (DC) Referrals: Danny Parks DO [Primary Care Provider] - (Please call and schedule a follow up appointment to be seen within 7 to 10 days. Also, call and schedule a follow up with your director child to be seen within 7 to 10 days.) Prescriptions: Losartan [Cozaar] 12.5 mg PO DAILY 60 Days #30 tablet Metoprolol [Lopressor] 25 mg PO BID 30 Days #60 tablet <Joe Murray - Last Filed: 09/05/18 20:38> Date of Encounter: 09/05/18 Time of Encounter: 15:00 - Attending Attestation I have personally performed a face to face evaluation on this patient. I have reviewed and agree with the care plan. History and Exam by me shows: CC: Dizziness, near syncope HPI: Pt reports was standing in a receiving line during a , became lightheaded and mildly diaphoretic, went over and sat down, had a snack, symptoms resolved over approximately fifteen minutes. He denies chest pain, pressure or palpitations with this event, Pt reports this was a different symptom complex than he experienced prior to previous PCI. He reports symptoms have resolved, no reoccurrence since admission, and is now back at his usual baseline. ROS: reviewed PMH; reviewed Labs and Xrays: reviewed PE: Pt seen and examine, agree with findings as documented IMP/Plan 1. Dizziness, near syncope appear more likely due to hypoglycemia that arrhythmia 2. Bradycardia: mild, unclear if contributing to symptoms, will decrease metoprolol tartrate from 50 mg to 25 mg bid. 3. CAD: moderate three vessel disease, previous stents in Cx and RCA, on optimal medical tx. 4. Pt is at low risk for hospital discharge, will continue to follow as outpatient with stress imaging. Assessment and Plan Discussion w patient/family: The assessment and plan as outlined above was discussed with the patient and/or family members who expressed understanding and agreement. All questions were answered. Thank you for involving us in the care of your patient. Please call with any questions. History of Present Illness History of present illness: Mr. Cowan is a 72 year old male All Systems Review: The remainder of the systems were reviewed and are negative Results 09/05/18 07:04 09/05/18 07:04 Lab Results 09/05/18 09/05/18 07:04 07:04 WBC 8.5 Hgb 14.9 Hct 42.6 Plt Count 248 Sodium 138 Potassium 3.7 Chloride 107 Carbon Dioxide 24 BUN 12 Creatinine 1.24 Glucose 80 Calcium 9.0 Magnesium 1.8 TSH 0.704
--- NOTE | 2018-09-05 14:36 | Discharge Summary ---
- NOTES TO OUTPATIENT PROVIDER Notes to Outpatient Provider: 1. Closely monitor BP and HR and f/u with PCP and cardiology. Orders not resulted at time of discharge: Pending orders 09/04/18 12:54 ECG 12 lead ECG [ECG] Stat Date of Encounter: 09/05/18 Time of Encounter: 13:30 - Discharge Diagnosis (1) Diaphoresis Priority: Primary Status: Acute (2) CANDELARIO (acute kidney injury) Priority: Secondary Status: Acute (3) Bradycardia Priority: Primary Status: Acute (4) DVT prophylaxis Priority: Secondary Status: Acute (5) CAD (coronary artery disease) Priority: Secondary Status: Chronic Qualifiers: Coronary Disease-Associated Artery/Lesion type: [place] artery [place] vs. transplanted heart: [place] heart Associated angina: angina presence unspecified Qualified Code(s): I25.10 - Atherosclerotic heart disease of [place] coronary artery without angina pectoris (6) Diabetes mellitus Priority: Secondary Status: Chronic Qualifiers: Diabetes mellitus type: type 2 Diabetes mellitus snf insulin use: without rate examiner use Diabetes mellitus complication status: with unspecified complications Qualified Code(s): E11.8 - Type 2 diabetes mellitus with unspecified complications (7) Hypertension Priority: Secondary Status: Chronic Qualifiers: Hypertension type: essential hypertension Qualified Code(s): I10 - Essential (primary) hypertension (8) Iliac artery stenosis, left Priority: Secondary Status: Acute Hospital course: Mr. Cowan is a 72 year old male presented to ER from for bradycardia and diaphoresis. Patient was admitted as symptomatic bradycardia, he was placed on continuous cardiac monitoring. Patient had echo and CTA head and the neck recently, results unremarkable. Cardiac consult saw patient, recommended decrease metoprolol dose to 25 twice a day, continue closely monitor heart rate and BP and follow-up as outpatient. Patient's BP is high after hold Metoprolol, will add low-dose losartan for hypertension. Patient's CANDELARIO has improved after hydration in ER. I have seen and examined this patient today. Patient denies further dizziness, diaphoresis, or discomfort. Patient walk around in the hallway without difficulties. Vitals are stable. Will discharge home and continue follow-up with cardiology and PCP as outpatient. Discharge discussed with: patient - Time Spent with Patient Total time spent providing and/or coordinating discharge services: 25 min Less than 30 minutes - Discharge Medications Prescriptions: Metoprolol [Lopressor] 25 mg PO BID 30 Days #60 tablet Home Medications: Aspirin [Lo-Dose Aspirin EC] 81 mg PO DAILY 05/11/18 [History] Insulin Glargine [Lantus] 30 unit SQ BID 05/11/18 [History] Isosorbide MONOnitrate (24 HR) [Imdur] 60 mg PO DAILY 05/11/18 [History] Nitroglycerin [Nitrostat] 0.4 mg SL Q5M PRN 05/11/18 [History] Paroxetine HCl [Paxil] 5 mg PO DAILY 05/11/18 [History] Prasugrel [Effient] 10 mg PO DAILY 05/11/18 [History] Ranolazine [Ranexa] 1,000 mg PO Q12H 05/11/18 [History] Simvastatin [Zocor] 40 mg PO HS 05/11/18 [History] Losartan [Cozaar] 12.5 mg PO DAILY 60 Days #30 tablet 09/05/18 [Rx] Metoprolol [Lopressor] 25 mg PO BID 30 Days #60 tablet 09/05/18 [Rx] Allergies/Adverse Reactions: Allergy/AdvReac Type Severity Reaction Status Date / Time glimepiride AdvReac Diarrhea Verified 08/09/18 08:17 metformin AdvReac Diarrhea Verified 08/09/18 08:17 Date of admission: 09/04/18 20:12 Primary care physician: Danny Parks DO Consults: 09/04/18 18:35 Consult to Cardiology [CONS] Stat Comment: Consulting Provider: Cardiology K[facility] Reason for Consult: Symptomatic bradycardia Call Completed: No 09/05/18 11:05 Consult to Occupational Therapy [CONS] Routine Comment: Evaluate, develop and implement POC Reason for Consult: weakness Does patient have active BEDREST order?: No Is patient medically & hemodynamically stable?: Yes Consult to Physical Therapy [CONS] Routine Comment: Evaluate, develop and implement POC Reason for Consult: Weakness Does patient have active BEDREST order?: No Is patient medically & hemodynamically stable?: Yes Discharging clinician: Alice Reyes Anticipated date of discharge: 09/05/18 - Constitutional Vitals: Temp Pulse Resp BP Pulse Ox 97.8 F 52 18 152/63 97 09/05/18 11:54 09/05/18 11:54 09/05/18 11:54 09/05/18 11:54 09/05/18 11:54 Exam: Pt is AAO x 3, in NAD HEENT: NC/AT, PERRL Neck: Supple, no JVD, no LAD Lungs: CTA b/l Heart: S1S2, RRR Abd: Soft, nontender, BS present Ext: ROM wnl, no pedal edema Neuro: No focal deficit - Patient Status Disposition: Home, Self-Care Condition: Good Functional capacity at discharge: independent ambulation Overall status at discharge: patient is back to baseline - Discharge Instructions Follow Up With: Danny Parks DO [Primary Care Provider] - - Diet and Activity Activity: increase activity as tolerated Diet: diabetic diet
--- NOTE | 2018-09-06 14:49 | Electrocardiograph Report ---
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
== END 2018-09-05 15:50 | disposition home or self-care (01) ==
LOC: EMEROOARM 12:30 → 3BNU 12:30
PROVIDERS: ADMIT Internal Medicine; ATTEND Internal Medicine

== ENCOUNTER 2019-12-18 13:10 | Observation (INO) ==
[2019-12-18] MEDS ORDERED: 0.9 % Sodium Chloride 1,000 ML IVC STA (13:23)
[2019-12-18 13:56] LABS: Basophils # 0.1 K/mcL (0.0-0.2); Basophils % 0.9 %; Eosinophils # 0.9 K/mcL (0.0-0.6); Eosinophils % 12.2 %; Hematocrit 37.2 % (37.5-50.1); Hemoglobin 12.7 g/dL (12.9-16.9); Immature Granulocytes % 0.9 % (0-4); Lymphocytes # 1.9 K/mcL (0.6-4.6); Lymphocytes % 27.1 %; Mean Corpuscular HGB Conc 34.1 g/dL (31.6-35.5); Mean Corpuscular Hemoglobin 27.9 pg (28.0-33.3); Mean Corpuscular Volume 81.6 fL (83.0-100.0); Mean Platelet Volume 9.4 fL (9.4-12.4); Monocytes # 0.5 K/mcL (0.0-1.3); Monocytes % 6.9 %; Neutrophils # 3.6 K/mcL (1.6-8.9); Platelet Count 290 K/mcL (140-400); Red Blood Count 4.56 M/mcL (4.19-5.50); Red Cell Distribution Width 15.7 % (11.5-14.5)
[2019-12-18 13:58] LABS: Prothrombin Time 11.5 Seconds (9.4-12.1)
[2019-12-18] MEDS ORDERED: Aspirin 81 MG TAB.CHEW PO ONE (14:22)
[2019-12-18 14:23] LABS: Troponin I 0.04 ng/mL (< 0.04)
[2019-12-18 14:35] LABS: Alanine Aminotransferase 14 Units/L (7-52); Albumin/Globulin Ratio 1.5 (1.1-2.2); Alkaline Phosphatase 74 Units/L (34-104); Aspartate Amino Transferase 15 Units/L (13-39); BUN/Creatinine Ratio 11 (6-26); Bilirubin,Direct 0.1 mg/dL (0.0-0.2); Bilirubin,Indirect 0.4 mg/dL (0.0-1.0); Bilirubin,Total 0.5 mg/dL (0.3-1.0); Blood Urea Nitrogen 15 mg/dL (8-23); Calcium 9.2 mg/dL (8.6-10.3); Carbon Dioxide 25 mEq/L (23-29); Chloride 102 mEq/L (98-107); Ethanol < 10 mg/dL (Less than 10); Globulin 2.7 g/dL (2.4-3.5); Glucose 171 mg/dL (70-105); Osmolality,Calculated 285 (280-300); Potassium 4.4 mEq/L (3.5-5.1); Sodium 135 mEq/L (136-145); Thyroid Stimulating Hormone 1.341 mcIU/mL (0.340-5.600); Total Protein 6.7 g/dL (6.4-8.9); eGFR For African Americans > 60 (> 60); eGFR For Non-African Americans 51 (> 60)
[2019-12-18 14:39] LABS: Bilirubin,Urine Small (Negative); Blood,Urine Negative (Negative); Clarity,Urine Clear (Clear); Color,Urine Yellow (Yellow); Glucose,Urine (UA) Normal (Normal); Ketones,Urine Negative (Negative); Leukocyte Esterase,Urine Negative (Negative); Nitrite,Urine Negative (Negative); PH,Urine 6.5 pH Units (5.0-8.0); Protein,Urine 100 mg/dL (Neg-Trace); Specific Gravity,Urine >= 1.030 (1.010-1.025); Urobilinogen,Urine Normal (Normal)
[2019-12-18 14:47] LABS: Amphetamine Screen,Urine Negative ng/mL (Cutoff=1000); Barbiturate Screen,Urine Negative ng/mL (Cutoff=200); Benzodiazepines Screen,Urine Negative ng/mL (Cutoff=200); Cannabinoid Screen,Urine Negative ng/mL (Cutoff = 50); Cocaine Screen,Urine Negative ng/mL (Cutoff= 300); Opiate Screen,Urine Negative ng/mL (Cutoff=300); Phencyclidine Screen,Urine Negative ng/mL (Cutoff=25)
[2019-12-18 14:52] LABS: Bacteria,Urine Few per hpf (None-Few); RBC,Urine 0-3 per hpf (0-3); WBC,Urine 0-3 per hpf (0-3)
[2019-12-18] MEDS ORDERED: *HR* Promethazine 25 MG/ML VIAL IVP PRN (14:55)
[2019-12-18] MEDS ORDERED: Acetaminophen 325 MG TABLET PO PRN (14:55)
[2019-12-18] MEDS ORDERED: Naloxone 0.4 MG/ML INJ IVP PRN (14:55)
[2019-12-18] MEDS ORDERED: Nitroglycerin 0.4 MG TAB.SUBL SL PRN (15:02)
[2019-12-18] MEDS ORDERED: 0.9 % Sodium Chloride 1,000 ML IVC SCH (15:15)
[2019-12-18] MEDS ORDERED: Ranolazine 500 MG TAB.ER.12H PO SCH (15:15)
[2019-12-18] MEDS ORDERED: Insulin DETEMIR 100 UNIT/ML X5UNITS SQ SCH (15:15)
[2019-12-18] MEDS ORDERED: Dextrose Gel 15 GM/37.5 ML TUBE PO PRN ×2 (15:45)
[2019-12-18] MEDS ORDERED: D5% in Water 1,000 ML IVC PRN (15:45)
[2019-12-18] MEDS ORDERED: *HR* Dextrose 50 % in Water (Syg) 50 ML SYRINGE IVP PRN (15:45)
[2019-12-18] MEDS: Insulin LISPRO 300 UNITS/3 ML VIAL SQ SCH (16:55)
[2019-12-18] MEDS: *HR* Heparin 5,000 UNIT/ML VIAL SQ SCH ×2 (16:56→17:06)
[2019-12-18] MEDS: Insulin DETEMIR 100 UNIT/ML X5UNITS SQ SCH ×2 (16:56→19:46)
[2019-12-19] MEDS: *HR* Heparin 5,000 UNIT/ML VIAL SQ SCH ×2 (01:52→18:19)
[2019-12-19 02:42] LABS: Basophils % 0.5 %; Eosinophils # 0.9 K/mcL (0.0-0.6); Eosinophils % 10.9 %; Hematocrit 33.3 % (37.5-50.1); Hemoglobin 11.4 g/dL (12.9-16.9); Immature Granulocytes % 0.4 % (0-4); Lymphocytes # 2.9 K/mcL (0.6-4.6); Lymphocytes % 33.9 %; Mean Corpuscular HGB Conc 34.2 g/dL (31.6-35.5); Mean Corpuscular Hemoglobin 27.7 pg (28.0-33.3); Mean Platelet Volume 10.2 fL (9.4-12.4); Monocytes # 0.8 K/mcL (0.0-1.3); Monocytes % 9.9 %; Neutrophils # 3.7 K/mcL (1.6-8.9); Platelet Count 283 K/mcL (140-400); Red Blood Count 4.11 M/mcL (4.19-5.50); Red Cell Distribution Width 15.7 % (11.5-14.5); Segmented Neutrophils % 44.4 %; White Blood Count 8.4 K/mcL (4.3-11.1)
[2019-12-19 03:04] LABS: BUN/Creatinine Ratio 13 (6-26); Blood Urea Nitrogen 16 mg/dL (8-23); Calcium 8.5 mg/dL (8.6-10.3); Carbon Dioxide 15 mEq/L (23-29); Chloride 108 mEq/L (98-107); Glucose 158 mg/dL (70-105); Magnesium 1.8 mg/dL (1.6-2.6); Osmolality,Calculated 284 (280-300); Phosphorous 3.3 mg/dL (2.7-4.5); Potassium 4.5 mEq/L (3.5-5.1); Sodium 135 mEq/L (136-145); eGFR For African Americans > 60 (> 60); eGFR For Non-African Americans 56 (> 60)
[2019-12-19] MEDS: Insulin LISPRO 300 UNITS/3 ML VIAL SQ SCH ×3 (07:53→18:19)
[2019-12-19] MEDS: Aspirin Enteric Coated 81 MG Tablet PO SCH (08:41)
[2019-12-19] MEDS: PARoxetine 20 MG TABLET PO SCH (08:41)
[2019-12-19] MEDS: Insulin DETEMIR 100 UNIT/ML X5UNITS SQ SCH ×2 (08:41→20:54)
[2019-12-19] MEDS: Ranolazine 500 MG TAB.ER.12H PO SCH ×2 (13:01→20:53)
[2019-12-19] MEDS: Isosorbide MONOnitrate (24 HR) 60 MG TAB.ER.24H PO SCH (13:01)
[2019-12-20 01:35] LABS: BUN/Creatinine Ratio 12 (6-26); Blood Urea Nitrogen 17 mg/dL (8-23); Calcium 8.5 mg/dL (8.6-10.3); Carbon Dioxide 25 mEq/L (23-29); Chloride 104 mEq/L (98-107); Glucose 265 mg/dL (70-105); Magnesium 1.8 mg/dL (1.6-2.6); Osmolality,Calculated 289 (280-300); Phosphorous 3.5 mg/dL (2.7-4.5); Potassium 3.7 mEq/L (3.5-5.1); Sodium 134 mEq/L (136-145); eGFR For African Americans > 60 (> 60); eGFR For Non-African Americans 51 (> 60)
[2019-12-20] MEDS: *HR* Heparin 5,000 UNIT/ML VIAL SQ SCH (05:03)
[2019-12-20] MEDS ORDERED: Regadenoson 0.4 MG/5 ML SYRINGE IVP ONE (06:05)
[2019-12-20] MEDS: PARoxetine 20 MG TABLET PO SCH (09:44)
[2019-12-20] MEDS: Isosorbide MONOnitrate (24 HR) 60 MG TAB.ER.24H PO SCH (09:44)
[2019-12-20] MEDS: Ranolazine 500 MG TAB.ER.12H PO SCH (09:44)
[2019-12-20] MEDS: Aspirin Enteric Coated 81 MG Tablet PO SCH (09:45)
[2019-12-20] MEDS: Insulin DETEMIR 100 UNIT/ML X5UNITS SQ SCH (09:48)
[2019-12-20] MEDS: Insulin LISPRO 300 UNITS/3 ML VIAL SQ SCH ×2 (09:51→12:54)
[2019-12-20 11:24] VITALS: BP 142/77
== END 2019-12-20 14:45 | disposition home or self-care (01) ==
LOC: EMEROOARM 13:10 → 3BNU 13:10 → SUATTDRO 14:58 → 3BNU 15:30
PROVIDERS: ADMIT Internal Medicine; ATTEND Internal Medicine

== ENCOUNTER 2020-03-21 22:52 | Observation (INO) ==
[2020-03-21] MEDS ORDERED: 0.9 % Sodium Chloride 1,000 ML IVC ONE (23:05)
[2020-03-21 23:28] LABS: Basophils # 0.1 K/mcL (0.0-0.2); Basophils % 0.9 %; Eosinophils % 12.2 %; Hematocrit 33.4 % (37.5-50.1); Hemoglobin 10.8 g/dL (12.9-16.9); Immature Granulocytes % 0.2 % (0-4); Lymphocytes # 2.6 K/mcL (0.6-4.6); Lymphocytes % 31.5 %; Mean Corpuscular HGB Conc 32.3 g/dL (31.6-35.5); Mean Corpuscular Hemoglobin 23.1 pg (28.0-33.3); Mean Corpuscular Volume 71.4 fL (83.0-100.0); Mean Platelet Volume 8.8 fL (9.4-12.4); Monocytes % 11.9 %; Neutrophils # 3.5 K/mcL (1.6-8.9); Platelet Count 309 K/mcL (140-400); Red Blood Count 4.68 M/mcL (4.19-5.50); Red Cell Distribution Width 17.8 % (11.5-14.5); Segmented Neutrophils % 43.3 %; White Blood Count 8.1 K/mcL (4.3-11.1)
[2020-03-21 23:50] LABS: BUN/Creatinine Ratio 14 (6-26); Blood Urea Nitrogen 19 mg/dL (8-23); Calcium 9.6 mg/dL (8.6-10.3); Carbon Dioxide 23 mEq/L (23-29); Chloride 102 mEq/L (98-107); Glucose 124 mg/dL (70-105); Osmolality,Calculated 286 (280-300); Potassium 3.7 mEq/L (3.5-5.1); Sodium 136 mEq/L (136-145); eGFR For African Americans > 60 (> 60); eGFR For Non-African Americans 52 (> 60)
[2020-03-21 23:53] LABS: Troponin I 0.05 ng/mL (< 0.04)
[2020-03-22] MEDS ORDERED: Ondansetron 4 MG/2 ML VIAL IVP PRN (00:28)
[2020-03-22] MEDS ORDERED: Naloxone 0.4 MG/ML INJ IVP PRN (00:28)
[2020-03-22 03:09] LABS: Basophils # 0.1 K/mcL (0.0-0.2); Basophils % 0.8 %; Eosinophils % 13.3 %; Hematocrit 31.9 % (37.5-50.1); Hemoglobin 10.1 g/dL (12.9-16.9); Immature Granulocytes % 0.4 % (0-4); Lymphocytes # 2.4 K/mcL (0.6-4.6); Lymphocytes % 33.1 %; Mean Corpuscular HGB Conc 31.7 g/dL (31.6-35.5); Mean Corpuscular Hemoglobin 22.6 pg (28.0-33.3); Mean Corpuscular Volume 71.5 fL (83.0-100.0); Mean Platelet Volume 9.1 fL (9.4-12.4); Monocytes # 0.8 K/mcL (0.0-1.3); Monocytes % 10.8 %; Neutrophils # 3.1 K/mcL (1.6-8.9); Platelet Count 303 K/mcL (140-400); Red Blood Count 4.46 M/mcL (4.19-5.50); Segmented Neutrophils % 41.6 %; White Blood Count 7.4 K/mcL (4.3-11.1)
[2020-03-22 03:13] LABS: INR 1.1; Prothrombin Time 12.4 Seconds (9.4-12.1)
[2020-03-22 03:36] LABS: BUN/Creatinine Ratio 15 (6-26); Blood Urea Nitrogen 18 mg/dL (8-23); Calcium 9.2 mg/dL (8.6-10.3); Carbon Dioxide 21 mEq/L (23-29); Chloride 105 mEq/L (98-107); Chol/HDL Ratio 2.5 (0-4.9); Cholesterol 93 mg/dL (< 200); Glucose 93 mg/dL (70-105); HDL Cholesterol 37 mg/dL (40-59); LDL Cholesterol,Calculated 36 mg/dL (< 100); Magnesium 1.8 mg/dL (1.6-2.6); Osmolality,Calculated 284 (280-300); Potassium 3.7 mEq/L (3.5-5.1); Sodium 136 mEq/L (136-145); Triglycerides 100 mg/dL (< 150); Troponin I 0.04 ng/mL (< 0.04); eGFR For African Americans > 60 (> 60); eGFR For Non-African Americans 57 (> 60)
[2020-03-22] MEDS ORDERED: Dextrose Gel 15 GM/37.5 ML TUBE PO PRN ×2 (03:43)
[2020-03-22] MEDS ORDERED: D5% in Water 1,000 ML IVC PRN (03:43)
[2020-03-22] MEDS ORDERED: *HR* Dextrose 50 % in Water (Vial) 50 ML VIAL IVP PRN (03:43)
[2020-03-22] MEDS: Insulin LISPRO 300 UNITS/3 ML VIAL SQ SCH ×2 (05:54→11:10)
[2020-03-22] MEDS ORDERED: *HR* Heparin 5,000 UNIT/ML VIAL SQ SCH (06:00)
[2020-03-22] MEDS ORDERED: PARoxetine HCL 10 MG TABLET PO SCH ×2 (09:00→09:30)
[2020-03-22] MEDS ORDERED: Aspirin Enteric Coated 81 MG Tablet PO SCH (09:00)
[2020-03-22 10:58] VITALS: BP 131/71
[2020-03-22] MEDS ORDERED: Insulin DETEMIR 100 UNIT/ML X5UNITS SQ SCH (21:00)
== END 2020-03-22 14:49 | disposition home or self-care (01) ==
LOC: 2ANU 22:52 → EMEROOARM 22:52 → 2ANU 03-22 00:39
PROVIDERS: ADMIT Internal Medicine; ATTEND Internal Medicine

== ENCOUNTER 2021-05-13 22:13 | Observation (INO) ==
[2021-05-13] MEDS ORDERED: Nitroglycerin 0.4 MG TAB.SUBL SL ONE (22:33)
[2021-05-13] MEDS ORDERED: Aspirin 81 MG TAB.CHEW PO ONE (22:33)
[2021-05-13 22:50] LABS: Basophils # 0.1 K/mcL (0.0-0.2); Basophils % 0.7 %; Eosinophils # 1.1 K/mcL (0.0-0.6); Eosinophils % 11.2 %; Hematocrit 39.2 % (37.5-50.1); Hemoglobin 13.7 g/dL (12.9-16.9); Immature Granulocytes % 0.5 % (0-4); Lymphocytes # 2.8 K/mcL (0.6-4.6); Lymphocytes % 29.3 %; Mean Corpuscular HGB Conc 34.9 g/dL (31.6-35.5); Mean Corpuscular Hemoglobin 28.4 pg (28.0-33.3); Mean Corpuscular Volume 81.2 fL (83.0-100.0); Mean Platelet Volume 8.8 fL (9.4-12.4); Monocytes # 0.8 K/mcL (0.0-1.3); Monocytes % 8.8 %; Neutrophils # 4.7 K/mcL (1.6-8.9); Platelet Count 255 K/mcL (140-400); Red Blood Count 4.83 M/mcL (4.19-5.50); Red Cell Distribution Width 15.3 % (11.5-14.5); Segmented Neutrophils % 49.5 %; White Blood Count 9.5 K/mcL (4.3-11.1)
[2021-05-13] MEDS ORDERED: *HR* FentaNYL (PF) 100 MCG/2 ML VIAL ONE (22:54)
[2021-05-13 23:00] LABS: INR 1.1; Prothrombin Time 12.4 Seconds (9.4-12.1)
[2021-05-13 23:03] LABS: Activated Partial Thrombo Time 35.5 Seconds (26.0-36.0)
[2021-05-13] MEDS ORDERED: *HR* FentaNYL (PF) 100 MCG/2 ML VIAL IVP ONE (23:04)
[2021-05-13 23:15] LABS: BUN/Creatinine Ratio 11 (6-26); Blood Urea Nitrogen 14 mg/dL (8-23); Calcium 8.9 mg/dL (8.6-10.3); Carbon Dioxide 22 mEq/L (23-29); Chloride 106 mEq/L (98-107); Glucose 185 mg/dL (70-105); Osmolality,Calculated 289 (280-300); Potassium 3.5 mEq/L (3.5-5.1); Sodium 137 mEq/L (136-145); Troponin I 0.03 ng/mL (< 0.04); eGFR For African Americans > 60 (> 60); eGFR For Non-African Americans 53 (> 60)
[2021-05-14 00:14] LABS: Influenza A PCR Negative (Negative); Influenza B PCR Negative (Negative); Resp. Syncytial Virus PCR Negative (Negative)
[2021-05-14 00:15] LABS: SARS-CoV-2 by PCR (In House) Negative (Negative)
[2021-05-14] MEDS ORDERED: Naloxone 0.4 MG/ML INJ IVP PRN (00:59)
[2021-05-14] MEDS ORDERED: D5% in Water 1,000 ML IVC PRN (01:01)
[2021-05-14] MEDS ORDERED: *HR* Dextrose 50 % in Water (Vial) 50 ML VIAL IVP PRN (01:01)
[2021-05-14] MEDS ORDERED: Dextrose Gel 15 GM/37.5 ML TUBE PO PRN ×2 (01:01)
[2021-05-14 03:50] VITALS: TEMP 97.9
[2021-05-14] MEDS ORDERED: Regadenoson 0.4 MG/5 ML SYRINGE IVP ONE ×2 (06:41→11:51)
[2021-05-14 08:27] VITALS: O2SAT 92
[2021-05-14] MEDS: Insulin LISPRO 300 UNITS/3 ML VIAL SUBQ SCH ×2 (08:31→13:32)
[2021-05-14 14:37] VITALS: BP 135/70; PULSE 59
== END 2021-05-14 17:25 | disposition home or self-care (01) ==
LOC: CDU 22:13 → EMEROOARM 22:13 → SUATTDRO 05-14 01:04 → CDU 05-14 02:00
PROVIDERS: ADMIT Internal Medicine; ATTEND Hospitalist

== ENCOUNTER 2022-05-17 13:36 | Inpatient (IN) ==
[2022-05-17] MEDS ORDERED: 0.9 % Sodium Chloride 1,000 ML IVC ONE (14:27)
[2022-05-17 14:53] LABS: Basophils # 0.1 K/mcL (0.0-0.2); Basophils % 0.8 %; Eosinophils # 1.1 K/mcL (0.0-0.6); Eosinophils % 18.1 %; Hematocrit 43.3 % (37.5-50.1); Hemoglobin 15.4 g/dL (12.9-16.9); Immature Granulocytes % 0.5 % (0-4); Lymphocytes % 32.9 %; Mean Corpuscular HGB Conc 35.6 g/dL (31.6-35.5); Mean Corpuscular Hemoglobin 28.8 pg (28.0-33.3); Mean Corpuscular Volume 81.1 fL (83.0-100.0); Mean Platelet Volume 9.7 fL (9.4-12.4); Monocytes # 0.6 K/mcL (0.0-1.3); Monocytes % 9.7 %; Neutrophils # 2.3 K/mcL (1.6-8.9); Platelet Count 262 K/mcL (140-400); Red Blood Count 5.34 M/mcL (4.19-5.50); Red Cell Distribution Width 15.4 % (11.5-14.5)
[2022-05-17 15:02] LABS: Troponin I 0.04 ng/mL (< 0.04)
[2022-05-17] MEDS ORDERED: Ondansetron 4 MG/2 ML VIAL IVP PRN (16:59)
[2022-05-17] MEDS ORDERED: Acetaminophen 325 MG TABLET PO PRN (16:59)
[2022-05-17] MEDS ORDERED: Naloxone 0.4 MG/ML INJ IVP PRN (16:59)
[2022-05-17] MEDS ORDERED: *HR* Enoxaparin 30 MG/0.3 ML SYRINGE SQ ONE (17:01)
[2022-05-17] MEDS ORDERED: Nitroglycerin 0.4 MG TAB.SUBL SL PRN (17:33)
[2022-05-17] MEDS ORDERED: *HR* Heparin 5,000 UNIT/ML VIAL IVP ONE (17:38)
[2022-05-17] MEDS ORDERED: *HR* Heparin 5,000 UNIT/ML VIAL IVP PRN ×2 (17:38)
[2022-05-17] MEDS ORDERED: D5% in Water 1,000 ML IVC PRN (17:50)
[2022-05-17] MEDS ORDERED: *HR* Dextrose 50 % in Water (Syg) 50 ML SYRINGE IVP PRN (17:50)
[2022-05-17] MEDS ORDERED: Dextrose Gel 15 GM/37.5 ML TUBE PO PRN ×2 (17:50)
[2022-05-17] MEDS ORDERED: *HR* Enoxaparin 100 MG/ML SYRINGE SQ SCH (18:00)
[2022-05-17] MEDS: Heparin 25,000UNIT/250ML 1/2NS 25,000 UNIT/250 ML IV.SOLN IVC SCH ×2 (18:33→21:07)
[2022-05-17 19:39] LABS: Influenza A PCR Negative (Negative); Influenza B PCR Negative (Negative); Resp. Syncytial Virus PCR Negative (Negative); SARS-CoV-2 by PCR (In House) Negative (Negative)
[2022-05-17] MEDS ORDERED: Morphine Sulfate 2 MG/ML SYRINGE IVP ONE (20:51)
[2022-05-17] MEDS: Melatonin 3 MG TABLET PO PRN (21:11)
[2022-05-17] MEDS: Ranolazine 500 MG TAB.ER.12H PO SCH (21:11)
[2022-05-17] MEDS: Insulin DETEMIR 100 UNIT/ML X5UNITS SUBQ SCH (21:12)
[2022-05-18 02:31] LABS: Hematocrit 41.2 % (37.5-50.1); Hemoglobin 14.6 g/dL (12.9-16.9); Mean Corpuscular HGB Conc 35.4 g/dL (31.6-35.5); Mean Corpuscular Hemoglobin 28.7 pg (28.0-33.3); Mean Corpuscular Volume 81.1 fL (83.0-100.0); Platelet Count 249 K/mcL (140-400); Red Blood Count 5.08 M/mcL (4.19-5.50); Red Cell Distribution Width 15.1 % (11.5-14.5); White Blood Count 7.3 K/mcL (4.3-11.1)
[2022-05-18 02:40] LABS: INR 1.1; Prothrombin Time 12.1 Seconds (9.4-12.1)
[2022-05-18 02:51] LABS: Albumin 3.5 g/dL (3.5-5.7); Albumin/Globulin Ratio 1.4 (1.1-2.2); Bilirubin,Total 0.6 mg/dL (0.3-1.0); Calcium 8.7 mg/dL (8.6-10.3); Globulin 2.5 g/dL (2.4-3.5); Magnesium 1.9 mg/dL (1.6-2.6); Phosphorous 3.7 mg/dL (2.7-4.5); Potassium 3.9 mEq/L (3.5-5.1)
[2022-05-18] MEDS ORDERED: *HR* Enoxaparin 40 MG/0.4 ML SYRINGE SQ SCH (06:00)
[2022-05-18] MEDS: Ranolazine 500 MG TAB.ER.12H PO SCH ×2 (09:01→21:22)
[2022-05-18] MEDS: Aspirin Enteric Coated 81 MG Tablet PO SCH (09:01)
[2022-05-18] MEDS: Isosorbide MONOnitrate (24 HR) 60 MG TAB.ER.24H PO SCH (09:01)
[2022-05-18] MEDS: PARoxetine 10 MG TABLET PO SCH (09:35)
[2022-05-18] MEDS ORDERED: Metoprolol XL (24 HR) Succ 25 MG TAB.ER.24H PO SCH (12:00)
[2022-05-18] MEDS: Heparin 25,000UNIT/250ML 1/2NS 25,000 UNIT/250 ML IV.SOLN IVC SCH (17:51)
[2022-05-18] MEDS: Melatonin 3 MG TABLET PO PRN (21:23)
[2022-05-18] MEDS: Insulin DETEMIR 100 UNIT/ML X5UNITS SUBQ SCH (21:23)
[2022-05-19 07:55] VITALS: BP 151/86; PULSE 61; TEMP 98.3; O2SAT 95
[2022-05-19] MEDS: Isosorbide MONOnitrate (24 HR) 60 MG TAB.ER.24H PO SCH (08:51)
[2022-05-19] MEDS: Ranolazine 500 MG TAB.ER.12H PO SCH (08:51)
[2022-05-19] MEDS: Aspirin Enteric Coated 81 MG Tablet PO SCH (08:51)
[2022-05-19] MEDS: PARoxetine 10 MG TABLET PO SCH (09:24)
== END 2022-05-19 10:10 | disposition home or self-care (01) | DRG 281 ==
LOC: EMEROOARM 13:36 → 3BNU 13:36 → SUATTDRO 17:51 → 3BNU 18:45
PROVIDERS: ADMIT Internal Medicine; ATTEND Internal Medicine